=== PATIENT | female | born 1940 | race Caucasian/White ===

== ENCOUNTER 2017-08-04 13:10 | Day surgery (SDC) | payer MEDICARE, OTHER, SELFPAY ==
[2017-08-04 14:02] VITALS: BP 183/81; BP 193/91; PULSE 72; PULSE 75; RESP 20
[2017-08-04 14:10] VITALS: BP 154/75; PULSE 74; RESP 18; TEMP 36.4; O2SAT 98
--- NOTE | 2017-08-04 14:34 | HMH.PMPROC ---
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 She has increasing right side low back pain. She is tender over her right SI. She has a positive right Karen's test. Today she presents for right-sided sacroiliac joint injection Procedure Details:: Right SI joint injection under fluoroscopy Informed consent was obtained and the risks and benefits of the procedure was going to the patient. Patient was taken to the procedure room. Patient was placed prone on the procedure table. The right hip was prepped using ChloraPrep. The skin and subcutaneous tissues were anesthetized using lidocaine. I placed a 22-gauge spinal needle into the inferior aspect of the right SI joint. Needle placement was confirmed with dye. After this we injected 5 mL bupivacaine 0.25% and Depo-Medrol 40 mg into the right SI joint. The patient tolerated the procedure well with no complication. Plan and Disposition:: Patient tolerated the procedure well and we will follow-up with her in 2 weeks and reassess her symptoms at that time.
--- NOTE | 2017-08-04 14:39 | P.PCN_ITS ---
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 She has increasing right side low back pain. She is tender over her right SI. She has a positive right Karen's test. Today she presents for right-sided sacroiliac joint injection Procedure Details:: Right SI joint injection under fluoroscopy Informed consent was obtained and the risks and benefits of the procedure was going to the patient. Patient was taken to the procedure room. Patient was placed prone on the procedure table. The right hip was prepped using ChloraPrep. The skin and subcutaneous tissues were anesthetized using lidocaine. I placed a 22-gauge spinal needle into the inferior aspect of the right SI joint. Needle placement was confirmed with dye. After this we injected 5 mL bupivacaine 0.25% and Depo-Medrol 40 mg into the right SI joint. The patient tolerated the procedure well with no complication. Plan and Disposition:: Patient tolerated the procedure well and we will follow-up with her in 2 weeks and reassess her symptoms at that time.
[2017-08-04 14:45] VITALS: BP 152/79; PULSE 70; RESP 18; O2SAT 95
== END 2017-08-04 14:46 | disposition home or self-care (01) ==
LOC: SC.PAINP 13:13
PROVIDERS: Family Provider Internal Medicine Adolescent Medicine; PCP Internal Medicine Adolescent Medicine; Visit Provider Anesthesiology
DX: M46.1 Sacroiliitis, not elsewhere classified (principal)
CPT/HCPCS: 27096; G0260; J1040; Q9966

== ENCOUNTER → 2017-08-28 14:52 | Outpatient (POV) | payer MEDICARE, OTHER, SELFPAY ==
[2017-08-28 15:04] VITALS: BP 152/64; PULSE 77; RESP 20; O2SAT 100; BMI 28.6
--- NOTE | 2017-08-28 15:23 | P.CONS_ITS ---
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 She is status post right SI joint injection under fluoroscopy. She has gotten some relief of her pain symptoms however she still has some occasional pain radiating into her right hip and buttock area. This may be coming from her lumbar spine. Her MRI does show severe degenerative changes at L4-L5 and L5-S1 with facet hypertrophy at both levels. It is thought that she may benefit from a lumbar epidural steroid injection. We will seek approval for a lumbar epidural steroid injection to see if this will help with her residual pain. Objective:: Alert and oriented ?3 in no acute distress. Patient does have an antalgic gait. Increased pain with extension. Tenderness over lower lumbar spine. Motor strength of the lower extremities is 5/5. There is no gross sensory deficit. Assessment:: Sacroiliitis. 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 Plan:: We will seek approval and plan on lumbar epidural steroid injection at L4-L5 to see if this will help with her residual low back and right hip pain.
== END ==
PROVIDERS: PCP Internal Medicine Adolescent Medicine; Visit Provider Anesthesiology
DX: M51.16 Intervertebral disc disorders with radiculopathy, lumbar region (principal)
CPT/HCPCS: 99212

== ENCOUNTER → 2017-09-01 14:12 | Day surgery (SDC) | payer MEDICARE, OTHER, SELFPAY ==
[2017-09-01 14:27] VITALS: BP 142/76; PULSE 86; RESP 18; TEMP 36.4; O2SAT 96; BMI 29.5
--- NOTE | 2017-09-01 15:11 | P.PCN_ITS ---
- Procedure Date: 09/01/17 Time: 15:10 Anesthesiologist:: Flip Santillan MD Complications:: None Pre-procedure Diagnosis:: Degenerative disc disease of lumbar spine with lumbar radiculopathy symptoms and facet hypertrophy at L4-L5 and L5-S1 Post-procedure Diagnosis:: Same Indications for Procedure:: This patient is a pleasant 77-year-old white female who works here in the [email or web address]. She has had one right SI joint injection under fluoroscopy with some relief of her pain symptoms. She still has some occasional pain which radiates into her right hip and buttock area. She also has some low back pain. We will do a lumbar epidural steroid injection today to see if this helps with her residual pain. Procedure Details:: Lumbar epidural steroid injection under fluoroscopy. Informed consent was obtained and the risk and benefits of the procedure was explained to the patient. The patient was taken to the procedure room. The patient was placed prone on the procedure table. The patient was prepped and draped in sterile fashion. C-arm fluoroscopy was used to view the lumbar spine. Skin and subcutaneous tissues were anesthetized using lidocaine. I placed an 18-gauge epidural needle and advanced into the L4-L5 interspace using fluoroscopic guidance and [id number] to air. After confirmation of needle placement in the epidural space with dye I injected 2 mL of lidocaine 1.5 % with Depo-Medrol 80 mg. Patient tolerated the procedure well with no complications. Plan and Disposition:: We will follow-up with her in 2 weeks. We will reevaluate her symptoms at that time.
[2017-09-01 15:15] VITALS: BP 129/75; PULSE 88; RESP 20
[2017-09-01 15:16] VITALS: BP 145/88; PULSE 70; RESP 18
[2017-09-01 15:24] VITALS: BP 150/68; PULSE 73; RESP 16; O2SAT 96
--- NOTE | 2018-02-01 10:26 | PC.NURSE ---
DICLOFENAC 75MG BID WITH 2 REFILLS CALLED INTO [facility] [place]
== END ==
PROVIDERS: Family Provider Internal Medicine Adolescent Medicine; PCP Internal Medicine Adolescent Medicine; Visit Provider Anesthesiology
DX: M51.16 Intervertebral disc disorders with radiculopathy, lumbar region (principal); M53.82 Other specified dorsopathies, cervical region
CPT/HCPCS: 62323; J1040; Q9966

== ENCOUNTER → 2017-10-10 14:22 | Outpatient (POV) | payer MEDICARE, OTHER, SELFPAY ==
[2017-10-10 14:32] VITALS: BP 125/59; PULSE 89; RESP 20; O2SAT 95; BMI 27.7
--- NOTE | 2017-10-10 14:46 | HMH.PAINSOAP ---
[facility] Pain Management SOAP Note Subjective:: Patient is a pleasant 77-year-old white female who presents today as a follow-up after her lumbar epidural steroid injection. Patient is doing extremely well and reports almost 100% relief. Patient states that she is doing much better functionality dodge. Patient is interested in taking an anti-inflammatory to help prolong her significant results. Patient would like to hold off on continuing injections at this time. Patient reports no pain at this time. ROS General: no recent weight change, no fever, no sleep disturbances Respiratory: no cough, no shortness of air, no recurring pulmonary infections Cardiovascular/Peripheral Vascular: No chest pain, No palpitations, no edema, no shortness of breath. Gastrointestinal: no incontinence, normal bowel movements reported Genitourinary: no incontinence Musculoskeletal: Back pain Psychiatric: normal mood/ affect, Neurological: [denies weakness in extremities], [denies balance issues] Objective:: Physical Exam General: Alert and oriented x3, no acute distress, pleasant and cooperative, [on room air] Lungs: Resps E/U, Symmetrical chest expansion, Eyes: PERRL Musculoskeletal: Flexion and extension of lumbar spine somewhat guarded secondary to pain, deep tendon reflexes normal, strength in upper and lower extremities [5/5], normal gait noted Neurological: speech clear, neurology teacher equal, no gross sensory deficits Assessment:: Degenerative disc disease of the lumbar spine with lumbar radiculopathy and facet hypertrophy Plan:: We will call in diclofenac 75 mg 1 p.o. twice daily for this patient. I discussed her not taking other NSAIDs with this medication. We will hold off on an injection at this time. Patient can call us in the future if she needs further injections. This note was dictated using voice recognition software and may contain errors or omissions
--- NOTE | 2017-10-10 14:50 | P.CONS_ITS ---
[facility] Pain Management SOAP Note Subjective:: Patient is a pleasant 77-year-old white female who presents today as a follow- up after her lumbar epidural steroid injection. Patient is doing extremely well and reports almost 100% relief. Patient states that she is doing much better functionality dodge. Patient is interested in taking an anti- inflammatory to help prolong her significant results. Patient would like to hold off on continuing injections at this time. Patient reports no pain at this time. ROS General: no recent weight change, no fever, no sleep disturbances Respiratory: no cough, no shortness of air, no recurring pulmonary infections Cardiovascular/Peripheral Vascular: No chest pain, No palpitations, no edema, no shortness of breath. Gastrointestinal: no incontinence, normal bowel movements reported Genitourinary: no incontinence Musculoskeletal: Back pain Psychiatric: normal mood/ affect, Neurological: [denies weakness in extremities], [denies balance issues] Objective:: Physical Exam General: Alert and oriented x3, no acute distress, pleasant and cooperative, [ on room air] Lungs: Resps E/U, Symmetrical chest expansion, Eyes: PERRL Musculoskeletal: Flexion and extension of lumbar spine somewhat guarded secondary to pain, deep tendon reflexes normal, strength in upper and lower extremities [5/5], normal gait noted Neurological: speech clear, tax professional equal, no gross sensory deficits Assessment:: Degenerative disc disease of the lumbar spine with lumbar radiculopathy and facet hypertrophy Plan:: We will call in diclofenac 75 mg 1 p.o. twice daily for this patient. I discussed her not taking other NSAIDs with this medication. We will hold off on an injection at this time. Patient can call us in the future if she needs further injections. This note was dictated using voice recognition software and may contain errors or omissions
--- NOTE | 2017-10-12 14:06 | PC.PHONENOTE ---
called in Rx for Diclofenac 75mg BIC with 2 refills to [facility]
== END ==
PROVIDERS: Family Provider Internal Medicine Adolescent Medicine; PCP Internal Medicine Adolescent Medicine; Visit Provider Clinical Nurse Specialist Family Health
DX: M54.16 Radiculopathy, lumbar region (principal)
CPT/HCPCS: 99212

== ENCOUNTER → 2018-01-29 07:24 | Outpatient (CLI) | payer MEDICARE, OTHER, SELFPAY ==
[2018-01-29 07:36] LABS: Basophils % 0.5 % (0.1-2.0); Eosinophils # 0.1 K/mm3 (0.0-0.4); Eosinophils % 2.2 % (0.1-12.0); Hematocrit 43.2 % (37.0-47.0); Hemoglobin 13.6 g/dL (12.2-16.2); Lymphocytes # 1.9 K/mm3 (0.7-4.5); Lymphocytes % 29.8 K/mm3 (10-50); Mean Corpuscular HGB Conc 31.4 g/dL (31.8-35.4); Mean Corpuscular Hemoglobin 29.7 pg (27.0-31.2); Mean Corpuscular Volume 94.5 fl (81-99); Mean Platelet Volume 7.8 fl (7.4-10.4); Monocytes # 0.4 K/mm3 (0.1-1.0); Monocytes % 6.1 % (1.7-9.3); Neutrophils % 61.4 % (37.0-80.0); Platelet Count 302 K/mm3 (142-424); Red Blood Count 4.57 M/mm3 (4.20-5.40); Red Cell Distribution Width 12.4 % (11.5-17.5); White Blood Count 6.5 K/mm3 (4.8-10.8)
[2018-01-29 09:35] LABS: Alanine Aminotransferase 23 U/L (12-78); Albumin Level 3.5 gm/dL (3.4-5.0); Alkaline Phosphatase 83 U/L (46-116); Anion Gap 12.9 mEq/L (5-15); Aspartate Amino Transferase 18 U/L (15-37); Bilirubin,Total 0.3 mg/dL (0.2-1.0); Blood Urea Nitrogen 17 mg/dL (7-18); Calcium 8.7 mg/dL (8.5-10.1); Carbon Dioxide 27 mmol/L (21.0-32.0); Chloride 107 mmol/L (98-107); Creatinine,Serum 0.92 mg/dL (0.55-1.02); Estimated Glomerular Filt Rate 60 ml/min (>60); GFR (African American) 72 ML/MIN (>60); Globulin 3.6 gm/dl (1.3-3.2); Glucose 110 mg/dL (74-106); Potassium 4.9 mmoL/L (3.5-5.1); Sodium 142 mmol/L (136-145); Total Protein,Serum 7.1 gm/dL (6.4-8.2)
== END ==
PROVIDERS: Visit Provider Nurse Practitioner Family
DX: N39.0 Urinary tract infection, site not specified (principal)
CPT/HCPCS: 36415; 80053; 85025

== ENCOUNTER → 2018-05-01 12:29 | Outpatient (CLI) | payer MEDICARE, OTHER, SELFPAY ==
--- NOTE | 2018-05-01 12:35 | XR_ITS ---
XR shoulder RT min 2V HISTORY: ITS.REASON: RT SHOULDER PAIN ORDERING PHYSICIAN: Lizandro Sheldon MD PATIENT AGE: 78 years Comparison: None FINDINGS: No fracture or dislocation. No lytic or blastic change. There is normal mineralization. There are mild osteoarthritic changes of the glenohumeral joint. There is also some cortical irregularity involving the greater tuberosity of the humeral head which may be seen with rotator cuff disease. No subacromial stenosis. No other significant anomalies. IMPRESSION: Mild osteoarthritic change of the glenohumeral joint. Possible rotator cuff disease with irregularity of the greater tuberosity
--- NOTE | 2018-05-01 12:35 | XR_ITS ---
XR wrist RT min 3V HISTORY ITS.REASON: RT WRIST PAIN ORDERING PHYSICIAN: Lizandro Sheldon MD PATIENT AGE: 78 years Comparison: None FINDINGS: There are severe osteoarthritic changes of the first metacarpal carpal joint with mild osteoarthritis of the scaphotrapezium joint. No fracture or dislocation. No lytic or blastic change. IMPRESSION: Osteoarthritis otherwise negative
== END ==
PROVIDERS: PCP Internal Medicine Adolescent Medicine; Visit Provider Internal Medicine Adolescent Medicine
DX: M25.531 Pain in right wrist (principal)
CPT/HCPCS: 73030; 73110

== ENCOUNTER 2018-09-28 15:00 | Outpatient (RCR) | payer MEDICARE, OTHER, SELFPAY ==
--- NOTE | 2018-08-14 14:15 | HMH.PTOPEV ---
PT Outpatient Evaluation Rehab PT Outpatient Evaluation Start: 08/14/18 14:03 Freq: Status: Active Protocol: Document 08/14/18 14:03 ISABEL (Rec: 08/14/18 14:15 ISABEL [id number]) Electronically Signed By Nikos Kumar, PT 08/14/18 14:03 Outpatient Therapy Subjective History Subjective History Pt reports falling ~2 weeks ago, tripped B UE used to brace for fall, acute injury to R UE/bicep area. Pt reports mild to moderate R bicep mm area pain fall, localized, unchanged w/activity. Chief Complaint Pain Symptom Type Ache Dull Symptoms Relieved By OTC Meds Prior Functional Limitations None Current Functional Limitations Lifting Housework Symptom Description Intermittent Level of pain today (0-10) 3 Pain scale - at its best (0-10) 0 Pain scale - at its worst (0-10) 4 Shoulder/Elbow Eval Shoulder Objective Measurements Shoulder ROM Bilateral Shoulder Abduction Active Range of 0-160 Motion (degrees) Shoulder Flexion Active Range of Motion 0-160 (degrees) Query Text: Shoulder MMT Shoulder Abduction Strength Grade 4- Good- Shoulder Flexion Strength Grade 4 Good Shoulder External Rotation Strength 4 Good Grade Shoulder Internal Rotation Strength 4 Good Grade Elbow Objective Measurements Palpation Tenderness Elbow Palpation Overall Comment R LHB MM BELLY 2-3/4 Elbow Palpation Finding Tenderness Trigger Point Elbow ROM Bilateral full ROM elbow exam standard bilateral Elbow MMT Left Elbow Flexion Strength Grade 5 Normal Biceps Brachii Strength Grade 5 Normal Brachioradialis Strength Grade 5 Normal Brachialis Strength Grade 5 Normal Elbow Extension Strength Grade 4 Good Triceps Brachii Strength Grade 4 Good Right Elbow Flexion Strength Grade 5 Normal Biceps Brachii Strength Grade 4- Good- Brachioradialis Strength Grade 5 Normal Brachialis Strength Grade 5 Normal Elbow Extension Strength Grade 4 Good Triceps Brachii Strength Grade 4 Good Outpatient Therapy Assessment Impairments Problems/Impairmments Palpation Tenderness Impaired Strength Impaired Lifting Impaired Household Care Impaired Work Activities Subjective C/O Pain
== END 2018-09-28 15:05 | disposition home or self-care (01) ==
LOC: PT 15:00
PROVIDERS: Visit Provider Internal Medicine Adolescent Medicine
DX: M75.21 Bicipital tendinitis, right shoulder (principal)
CPT/HCPCS: 97010; 97014; 97033; 97035; 97110; 97140; 97163; G0283

== ENCOUNTER 2020-05-09 13:11 | Emergency (ER) | payer MEDICARE, OTHER, SELFPAY ==
[2020-05-09 13:40] VITALS: BP 160/76; PULSE 90; RESP 16; TEMP 36.8; O2SAT 98; BMI 27.6
--- NOTE | 2020-05-09 13:48 | HMH.EDUTC ---
[facility] [place] Impression: Sinusitis Qualifiers: Sinusitis location: maxillary Chronicity: acute Recurrence: non-recurrent Qualified Code(s): J01.00 - Acute maxillary sinusitis, unspecified Disposition: Home, Self-Care Condition on Discharge: Good Instructions: DI for Sinusitis Additional Instructions: start antibiotic patient to take as ordered for a full length of time even if you feel better. Sinus infections do not get better overnight. It may take 2-3 days to notice much improvement so be sure to use conservative measures as discussed for symptoms. Flonase 1 spray each nostril daily to help with nasal congestion, sinus and ear pressure/information Increase fluids Humidifier/vaporizer as needed Tylenol and ibuprofen as needed for fever or pain. If symptoms do not improve or get worse return or be seen in the ER Follow-up with primary care this week Prescriptions: Fluticasone Propionate [Flonase 50mcg nasal spray 16gm] 1 spr NS DAILY 14 Days #1 bottle Prescription Printed cephALEXin [Keflex 500mg Cap] 500 mg PO BID 10 Days #20 cap Prescription Printed Referrals: Adolfo Delong MD [Primary Care Provider] - Time of Disposition: 13:56 Medical Decision Making - Enrico Inquiry Pt receiving controlled substance: No Vital Signs: 05/09/20 13:40 Temperature 98.3 F Temperature Source Oral Pulse Rate [Right Brachial] 90 Respiratory Rate 16 Blood Pressure [Right Arm] 160/76 H Blood Pressure Mean [Right Arm] 104 Blood Pressure Source [Right Arm] Automatic Cuff Blood Pressure Position [Right Arm] Sitting 02 Sat by Pulse Oximetry 98 Oxygen Delivery Method Room Air Orders (Tests/Meds): ORDERS Category Date Time Status Covid-19 Nasal PCR ([facility]) Routine Lab 05/09/20 13:38 Ordered [facility] [place] - General Chief complaint: [facility] Stated complaint: sinus stuff up Time Seen by Provider: 05/09/20 13:49 Mode of Arrival: Ambulatory Source of Information: Patient Limitations: No Limitations Description of Symptoms (Recalled from Triage Doc. by RN): PATIENT C/O PRODUCTIVE COUGH AND HEAD CONGESTION SINCE MONDAY HEENT Symptoms (Recalled from RN notes): Yes Resp Symptoms (Recalled from RN notes): Yes Skin Symptoms (Recalled from RN notes): No MS Symptoms (Recalled from RN notes): No Functional Status (Recalled from RN notes): WNL - History of Present Illness Provider Complaint: 80 yr old female presents for nasal congestion, nonproductive cough and sinus pressure since . - Related Data Home Medications Medication Instructions Recorded Confirmed Citalopram Hydrobromide [Celexa] 20 mg PO DAILY 10/10/17 06/18/19 Levothyroxine Sodium 75 mg PO DAILY 10/10/17 06/18/19 [Levothyroxine 75mcg (0.075mg) Tab] Pravastatin Sodium [Pravachol] 40 mg PO DAILY 10/10/17 06/18/19 Omeprazole [Omeprazole 20mg 20 mg PO DAILY 05/09/20 05/09/20 Capsule] Previous Rx's Medication Instructions Recorded Fluticasone Propionate [Flonase 1 spr NS DAILY 14 Days #1 bottle 05/09/20 50mcg nasal spray 16gm] cephALEXin [Keflex 500mg Cap] 500 mg PO BID 10 Days #20 cap 05/09/20 Allergies Allergy/AdvReac Type Severity Reaction Status Date / Time No Known Allergies Allergy Verified 03/23/18 14:15 - Worker's Comp Is this a Worker's Comp case?: No [facility] History - Hepatitis A Screen Drug use history?: No High risk sexual behaviors?: No History of sexually transmitted infection?: No Currently employed?: No Childcare worker?: No Do you have indoor plumbing?: Yes Do you have electricity?: Yes Attestation statement:: This patient has been screened for Hepatitis A risk factors. I have reviewed the patient's past medical history: Yes Medical History: Reports:: Cancer, Gastroesophageal Reflux Disease(GERD), Hyperlipidemia Denies:: Diabetes Mellitus Type 1, Diabetes Mellitus Type 2, MRSA, Seizures Other Medical History: Reports: Chemotherapy, Hypothyroidism, Sinus Problems, T
[2020-05-09 14:12] VITALS: BP 160/76; PULSE 90; RESP 16; TEMP 36.8; O2SAT 98
== END 2020-05-09 14:19 | disposition home or self-care (01) ==
PROVIDERS: Emergency Provider Nurse Practitioner Family; PCP Internal Medicine Adolescent Medicine
DX: J01.00 Acute maxillary sinusitis, unspecified (principal); Z20.828 Contact with and (suspected) exposure to other viral communicable diseases; K21.9 Gastro-esophageal reflux disease without esophagitis; E78.5 Hyperlipidemia, unspecified; E03.9 Hypothyroidism, unspecified; Z79.899 Other long term (current) drug therapy
CPT/HCPCS: G0463; 99201; U0003

== ENCOUNTER → 2020-08-14 07:35 | Outpatient (CLI) | payer MEDICARE, SELFPAY ==
[2020-08-14 08:03] LABS: Basophils # 0.1 K/mm3 (0-0.2); Basophils % 0.7 % (0.1-2.0); Eosinophils # 0.1 K/mm3 (0.0-0.4); Eosinophils % 1.2 % (0.1-12.0); Hematocrit 44.8 % (37.0-47.0); Hemoglobin 14.4 g/dL (12.2-16.2); Mean Corpuscular Hemoglobin 30.9 pg (27.0-31.2); Mean Corpuscular Volume 96.3 fl (81-99); Mean Platelet Volume 7.6 fl (7.4-10.4); Monocytes # 0.3 K/mm3 (0.1-1.0); Monocytes % 4.6 % (1.7-9.3); Neutrophils # 4.6 K/mm3 (1.8-7.8); Neutrophils % 65.6 % (37.0-80.0); Platelet Count 290 K/mm3 (142-424); Red Blood Count 4.65 M/mm3 (4.20-5.40); Red Cell Distribution Width 13.6 % (11.5-17.5)
[2020-08-14 09:25] LABS: Alanine Aminotransferase 13 U/L (12-78); Albumin Level 4.4 g/dl (3.5-5.0); Albumin/Globulin Ratio 1.5 (1.1-1.8); Alkaline Phosphatase 90 U/L (38-126); Anion Gap 12.5 mEq/L (5-15); Aspartate Amino Transferase 24 U/L (14-36); Bilirubin,Total 0.6 mg/dl (0.2-1.3); Blood Urea Nitrogen 17 mg/dl (7-17); Calcium 9.6 mg/dl (8.4-10.2); Carbon Dioxide 27 mmol/L (22.0-30.0); Chloride 105 mmol/L (98-107); Chol/HDL Ratio 2.4 (1-3.5); Cholesterol 183 mg/dl (140-200); Estimated Glomerular Filt Rate 81 ml/min (>60); GFR (African American) 98 ML/MIN (>60); Glucose 102 mg/dl (74-100); HDL Cholesterol 75 mg/dl (40-60); Potassium 4.5 mmoL/L (3.5-5.1); Sodium 140 mmol/L (136-145); Total Protein,Serum 7.4 g/dl (6.3-8.2); Triglycerides 100 mg/dl (30-150); VLDL Cholesterol 20 mg/dL (0-40)
[2020-08-14 09:36] LABS: Direct LDL Cholesterol 67.31 mg/dL (100-129)
[2020-08-14 09:55] LABS: Thyroid Stimulating Hormone 3.55 uIU/mL (0.465-4.68)
== END ==
PROVIDERS: Visit Provider Nurse Practitioner Family
DX: E78.5 Hyperlipidemia, unspecified (principal); E03.9 Hypothyroidism, unspecified; K21.9 Gastro-esophageal reflux disease without esophagitis; Z85.038 Personal history of other malignant neoplasm of large intestine
CPT/HCPCS: 36415; 80053; 80061; 84443; 85025

== ENCOUNTER 2020-11-29 13:49 | Emergency (ER) | payer OTHER, SELFPAY ==
--- NOTE | 2020-11-29 13:58 | XR_ITS ---
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 Pain along right upper extremeties. TECHNIQUE: Imaging protocol: XR Right forearm. Views: 2 views. COMPARISON: CR XR ELBOW RT MIN 3V 11/29/2020 2:30 PM FINDINGS: Bones/joints: There is no evidence of acute fracture. There is no evidence of joint malalignment or dislocation. Soft tissues: There are no soft tissue masses or fluid collections. IMPRESSION: 1. No evidence of acute fracture. 2. No evidence of acute dislocation.
--- NOTE | 2020-11-29 13:58 | XR_ITS ---
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 TECHNIQUE: Imaging protocol: XR Right shoulder. Views: 2 or more views. COMPARISON: DX SHOULDCMRT XR shoulder RT min 2V 05/01/2018 12:37 PM FINDINGS: Bones/joints: There is no evidence of acute fracture. There is no evidence of joint malalignment or dislocation. Degenerative changes of the glenohumeral and acromioclavicular joints. Soft tissues: There are no soft tissue masses or fluid collections. IMPRESSION: 1. No evidence of acute fracture. 2. No evidence of acute dislocation. 3. Degenerative changes of the glenohumeral and acromioclavicular joints.
--- NOTE | 2020-11-29 13:58 | XR_ITS ---
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 TECHNIQUE: Imaging protocol: XR Right elbow. Views: 3 or more views. COMPARISON: CR XR SHOULDER RT MIN 2V 11/29/2020 2:26 PM FINDINGS: Bones/joints: There is no evidence of acute fracture. There is no evidence of joint malalignment or dislocation. Soft tissues: There are no soft tissue masses or fluid collections. IMPRESSION: 1. No evidence of acute fracture. 2. No evidence of acute dislocation.
--- NOTE | 2020-11-29 13:58 | XR_ITS ---
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 TECHNIQUE: Imaging protocol: XR Right humerus. Views: 2 or more views. COMPARISON: DX SHOULDCMRT XR shoulder RT min 2V 05/01/2018 12:37 PM FINDINGS: Bones/joints: There is no evidence of acute fracture. There is no evidence of joint malalignment or dislocation. Soft tissues: There are no soft tissue masses or fluid collections. IMPRESSION: 1. No evidence of acute fracture. 2. No evidence of acute dislocation.
--- NOTE | 2020-11-29 13:58 | XR_ITS ---
PROCEDURE INFORMATION: Exam: XR Right Wrist Exam date and time: 11/29/2020 1:58 PM Age: 80 years old Clinical indication: Injury or trauma; Fall; Work related; Blunt trauma (contusions or hematomas); Wrist; Right TECHNIQUE: Imaging protocol: XR Right wrist. Views: 3 or more views. COMPARISON: DX WRISTCMRT XR wrist RT min 3V 05/01/2018 12:37 PM FINDINGS: Bones/joints: Degenerative changes of the wrist. There is no evidence of acute fracture. There is no evidence of joint malalignment or dislocation. Soft tissues: Normal. IMPRESSION: 1. Degenerative changes of the wrist. 2. No evidence of acute fracture. 3. No evidence of acute dislocation.
[2020-11-29 14:00] VITALS: BP 117/76; PULSE 83; RESP 19; TEMP 36.6; O2SAT 100; BMI 27.6
--- NOTE | 2020-11-29 14:44 | HMH.EDUTC ---
[facility] [place] Disposition Clinical Impression: Fall Qualifiers: Encounter type: initial encounter Qualified Code(s): W19.XXXA - Unspecified fall, initial encounter Disposition: Home, Self-Care Condition on Discharge: Good Instructions: How To Perform RICE (Rest, Ice, Compress, Elevate), How to Prevent Falls, DI for Shoulder Pain, DI for Arm Pain Additional Instructions: *RICE, Rest the extremity, Ice 15-20 minutes 3-4 times daily, Compress- wear the taryn wrap as discussed as much as possible to help reduce swelling and pain, Elevate the extremity when at rest *Elevate when resting *Ibuprofen every 6-8 hours as needed for pain an inflammation. If need something more can take Tylenol in between doses of Ibuprofen to help Immediately follow up with your family doctor for new or worsening of symptoms, or no noticeable improvement over the next 3-5 days Return if needed Straight to ER if any life threatening symptoms Referrals: Adolfo Delong MD [Primary Care Provider] - As needed Time of Disposition: 15:19 Medical Decision Making - Enrico Inquiry Pt receiving controlled substance: No Enrico was queried for this patient: No Vital Signs: 11/29/20 14:00 11/29/20 15:25 Temperature 97.9 F 97.9 F Temperature Source Oral Pulse Rate 83 Pulse Rate [Right Brachial] 83 Respiratory Rate 19 19 Blood Pressure 117/76 Blood Pressure [Right Arm] 117/76 Blood Pressure Mean [Right Arm] 89 Blood Pressure Source [Right Arm] Automatic Cuff Blood Pressure Position [Right Arm] Sitting 02 Sat by Pulse Oximetry 100 Oxygen Delivery Method Room Air Orders (Tests/Meds): ORDERS Category Date Time Status Hand XR right minimum 3 views [XR hand RT min 3V] Stat Exams 11/29/20 13:58 Taken - Radiology Data #1 Image(s): Shoulder, Humerus Image Reviewed: Yes I have reviewed radiologist's interpretation shoulder IMPRESSION: 1. No evidence of acute fracture. 2. No evidence of acute dislocation. 3. Degenerative changes of the glenohumeral and acromioclavicular joints. Humerus IMPRESSION: 1. No evidence of acute fracture. 2. No evidence of acute dislocation. #2 Image(s): Forearm Image Reviewed: Yes I have reviewed radiologist's interpretation Preliminary Findings: No Fracture Seen IMPRESSION: 1. No evidence of acute fracture. 2. No evidence of acute dislocation. #3 Image(s): Wrist Image Reviewed: Yes I have reviewed radiologist's interpretation IMPRESSION: 1. Degenerative changes of the wrist. 2. No evidence of acute fracture. 3. No evidence of acute dislocation [facility] [place] HPI - General Stated complaint: [id number] fell and right side pain Time Seen by Provider: 11/29/20 14:44 Mode of Arrival: Ambulatory Source of Information: Patient Limitations: No Limitations Description of Symptoms (Recalled from Triage Doc. by RN): PATIENT FELL WHILE AT WORK YESTERDAY AFTERNOON; C/O RIGHT SHOULDER AND RIGHT ARM PAIN HEENT Symptoms (Recalled from RN notes): No Resp Symptoms (Recalled from RN notes): No Skin Symptoms (Recalled from RN notes): No MS Symptoms (Recalled from RN notes): Yes Functional Status (Recalled from RN notes): WNL - History of Present Illness Provider Complaint: Patient states that she fell at work yesterday when tripped over a trash can and slipped on floor in dishroom and landed on her right arm/shoulder area State that she thought she was ok and just sore but today she was still feeling sore States that she has been able to move her arms just feels like her arm from her shoulder to her wrist is sore Denies swelling no bruising and able to raise arm - Related Data Home Medications Medication Instructions Recorded Confirmed Citalopram Hydrobromide [Celexa] 20 mg PO DAILY 10/10/17 11/29/20 Levothyroxine Sodium 75 mg PO DAILY 10/10/17 11/29/20 [Levothyroxine 75mcg (0.075mg) Tab] Pravastatin Sodium [Pravachol] 40 mg PO DAILY 10/10/17 11/29/20 Omeprazole [Omeprazole 20mg 20 mg
[2020-11-29 15:25] VITALS: BP 117/76; PULSE 83; RESP 19; TEMP 36.6; O2SAT 100
== END 2020-11-29 15:30 | disposition home or self-care (01) ==
PROVIDERS: Emergency Provider Nurse Practitioner; PCP Internal Medicine Adolescent Medicine
DX: S50.11XA Contusion of right forearm, initial encounter (principal); S40.011A Contusion of right shoulder, initial encounter; S40.021A Contusion of right upper arm, initial encounter; W01.0XXA Fall on same level from slipping, tripping and stumbling without subsequent striking against object, initial encounter; Y92.69 Other specified industrial and construction area as the place of occurrence of the external cause; Y99.0 Civilian activity done for income or pay
CPT/HCPCS: 73030; 73060; 73080; 73090; 73110; 73130; 99202; G0463

== ENCOUNTER 2021-01-09 21:55 | Emergency (ER) | payer MEDICARE, SELFPAY ==
[2021-01-09 22:08] VITALS: BP 169/71; PULSE 80; RESP 16; TEMP 36.6; O2SAT 99
== END 2021-01-09 22:09 | disposition home or self-care (01) ==
LOC: ER 22:01
PROVIDERS: Emergency Provider Emergency Medicine; PCP Internal Medicine Adolescent Medicine
DX: Z53.21 Procedure and treatment not carried out due to patient leaving prior to being seen by health care provider (principal)
CPT/HCPCS: 99211

== ENCOUNTER → 2021-03-31 06:17 | Outpatient (CLI) | payer MEDICARE, SELFPAY ==
[2021-03-31 06:51] LABS: Coronavirus 19, PCR Not Detected (NotDetected); Influenza A, PCR Not Detected (NotDetected); Influenza B, PCR Not Detected (NotDetected)
== END ==
PROVIDERS: PCP Internal Medicine Adolescent Medicine; Visit Provider Emergency Medicine
DX: Z20.822 Contact with and (suspected) exposure to COVID-19 (principal)
CPT/HCPCS: U0003

== ENCOUNTER 2021-06-28 14:17 | Emergency (ER) | payer MEDICARE, SELFPAY ==
[2021-06-28 14:51] VITALS: BP 144/65; PULSE 70; RESP 18; TEMP 36.8; O2SAT 97; BMI 28.7
--- NOTE | 2021-06-28 15:07 | HMH.EDUTC ---
[facility] [place] Clinical Impression: Right hip pain, Right thigh pain, Piriformis syndrome of right side Disposition: Home, Self-Care Condition on Discharge: Good Instructions: Osteoarthritis, DI for Hip Pain Additional Instructions: Rest the extremity, Go home and lie down and rest. Take the medications as directed that we sent to the pharmacy. Follow up with Dr. Logan (orthopedics) if you don't already have an orthopedic doctor. I put in a referral but you need to call his office and schedule an appointment. Follow up with your regular doctor. GO TO THE ER FOR ANY WORSENING SYMPTOMS Prescriptions: methylPREDNISolone [Medrol] 4 mg PO DIRECTED 6 Days #21 packet Transmission Status: Received by [facility] Referrals: Adolfo Delong MD [Primary Care Provider] - Forms: Work/School Release Time of Disposition: 15:50 Medical Decision Making - Medical Records Medical records reviewed: No: I reviewed the patient's medical records. - Enrico Inquiry Pt receiving controlled substance: No Vital Signs: 06/28/21 14:51 06/28/21 15:51 Temperature 98.2 F 98.2 F Temperature Source Oral Pulse Rate 70 Pulse Rate [Left] 70 Respiratory Rate 18 18 Blood Pressure 144/65 H Blood Pressure [Right Arm] 144/65 H Blood Pressure Mean [Right Arm] 91 02 Sat by Pulse Oximetry 97 - Lab Data Lab results reviewed: Yes: I reviewed the patient's lab results. Orders (Tests/Meds): ED MEDICATIONS Discontinued Medications Generic Name Dose Route Start Last Admin Trade Name Freq PRN Reason Stop Dose Admin Methylprednisolone Sodium Succinate 125 mg 06/28/21 15:15 06/28/21 15:24 Methylprednisolone Sod Succ 125mg Vial IM 06/28/21 15:16 125 mg ONCE ONE Administration [facility] [place]PI - General Stated complaint: right hip and knee pain Time Seen by Provider: 06/28/21 15:07 - History of Present Illness Provider Complaint: She states that for the past 2 days she has had right hip pain and pain that radiates down the lateral aspect of the right thigh. She denies any injury or fall. She thinks this is her osteoarthritis in her right hip that flares up at times. - Related Data Home Medications Medication Instructions Recorded Confirmed Citalopram Hydrobromide [Celexa] 20 mg PO DAILY 10/10/17 11/29/20 Levothyroxine Sodium 75 mg PO DAILY 10/10/17 11/29/20 [Levothyroxine 75mcg (0.075mg) Tab] Pravastatin Sodium [Pravachol] 40 mg PO DAILY 10/10/17 11/29/20 Omeprazole [Omeprazole 20mg 20 mg PO DAILY 05/09/20 11/29/20 Capsule] Previous Rx's Medication Instructions Recorded methylPREDNISolone [Medrol] 4 mg PO DIRECTED 6 Days #21 06/28/21 packet Allergies Allergy/AdvReac Type Severity Reaction Status Date / Time No Known Allergies Allergy Verified 03/23/18 14:15 [facility] History - Hepatitis A Screen Attestation statement:: This patient has been screened for Hepatitis A risk factors. I have reviewed the patient's past medical history: Yes Medical History: Reports:: Cancer, Gastroesophageal Reflux Disease(GERD), Hyperlipidemia Denies:: Diabetes Mellitus Type 1, Diabetes Mellitus Type 2, MRSA, Seizures Other Medical History: Reports: Chemotherapy, Hypothyroidism, Sinus Problems, Thyroid Disease. Denies: Blood Transfusion Reaction Other Surgeries: Yes: Colon Resection, Thyroidectomy Amputation: No Fractures: No - Social History Smoking Status: Never smoker Alcohol Intake: never Occupational Status: other Housing: house Household Members: family Family Hx:: No significant family history ROS Obtained: Yes All systems reviewed & no additional complaints - Constitutional Constitutional: Denies chills, Denies fever(s) - Eyes Eyes: Denies eye discharge - ENT Ears, Nose, Mouth, and Throat: Denies sore throat - Cardiovascular Cardiovascular: Denies chest pain - Respiratory Respiratory: Denies chest congestion, Denies cough - Gastrointestin
[2021-06-28 15:51] VITALS: BP 144/65; PULSE 70; RESP 18; TEMP 36.8
== END 2021-06-28 15:52 | disposition home or self-care (01) ==
PROVIDERS: Emergency Provider Nurse Practitioner Family; PCP Internal Medicine Adolescent Medicine
DX: M25.551 Pain in right hip (principal); M79.651 Pain in right thigh; G57.01 Lesion of sciatic nerve, right lower limb; E78.5 Hyperlipidemia, unspecified; K21.9 Gastro-esophageal reflux disease without esophagitis; E03.9 Hypothyroidism, unspecified
CPT/HCPCS: G0463; 99202

== ENCOUNTER 2021-07-07 11:32 | Emergency (ER) | payer OTHER, SELFPAY ==
[2021-07-07 11:37] VITALS: BP 175/83; PULSE 66; RESP 18; TEMP 36.8; O2SAT 100; BMI 27.4
--- NOTE | 2021-07-07 11:41 | XR_ITS ---
PROCEDURE: XR WRIST LT MIN 3V CLINICAL INDICATION: Fall COMPARISON: CR WRL3 WRIST-3 VIEWS-LT from 01/17/2014 CR WRL3 WRIST-3 VIEWS-LT from 03/05/2014 DX WRISTCMRT XR wrist RT min 3V from 05/01/2018 CR XR WRIST RT MIN 3V from 11/29/2020 FINDINGS: There is an old distal radial fracture with mild osteoarthritic changes at the radiocarpal joint. No acute fracture or dislocation apparent. Other findings:None. IMPRESSION: Old distal radial fracture, no acute finding Dictated by: Donavan Cloud MD 07/07/2021 12:18 Donavan Cloud MD in [place] 07/07/2021 12:18
--- NOTE | 2021-07-07 11:41 | XR_ITS ---
PROCEDURE: XR KNEE LT 3V CLINICAL INDICATION: Fall COMPARISON: No exams were available for comparison FINDINGS: No fracture or dislocation. No lytic or blastic change. There is normal mineralization. There are minimal osteoarthritic changes of the medial compartment. Small enthesophyte noted along the superior aspect of the patella Other findings:None. IMPRESSION: No acute findings. Dictated by: Donavan Cloud MD 07/07/2021 12:16 Donavan Cloud MD in [place] 07/07/2021 12:16
--- NOTE | 2021-07-07 11:45 | PC.NURSE ---
Called RAD to request xray
[2021-07-07 12:00] VITALS: BP 132/74; PULSE 67; O2SAT 97
--- NOTE | 2021-07-07 12:02 | PC.NURSE ---
pt to rad.
--- NOTE | 2021-07-07 12:08 | HMH.EDFALL ---
ED Disposition Clinical Impression: Fall Disposition: Home, Self-Care Condition on Discharge: Fair Instructions: How to Prevent Falls Referrals: Adolfo Delong MD [Primary Care Provider] - - Critical Care Critical Care Time: No Attestation: On 07/07/21, the high probability of a clinically significant, sudden or life threatening deterioration of the following system(s) required my full and direct attention, intervention and personal management. The time I documented below is in addition to time spent performing reported procedures but includes the following listed in this critical care notation. Medical Decision Making - Medical Records Medical records reviewed: Yes: I reviewed the patient's medical records. - Enrico Inquiry Pt receiving controlled substance: No Enrico was queried for this patient: No Vital Signs: 07/07/21 11:37 07/07/21 12:00 07/07/21 12:31 Temperature 98.3 F Temperature Source Oral Pulse Rate 67 64 Pulse Rate [Right Radial] 66 Respiratory Rate 18 Blood Pressure 132/74 166/86 H Blood Pressure [Right Arm] 175/83 H Blood Pressure Mean 93 109 Blood Pressure Mean [Right Arm] 113 Blood Pressure Source [Right Arm] Automatic Cuff Blood Pressure Position [Right Arm] Supine 02 Sat by Pulse Oximetry 100 97 97 Oxygen Delivery Method Room Air Nasal Cannula 07/07/21 13:06 Temperature Temperature Source Pulse Rate 63 Pulse Rate [Right Radial] Respiratory Rate Blood Pressure Blood Pressure [Right Arm] Blood Pressure Mean Blood Pressure Mean [Right Arm] Blood Pressure Source [Right Arm] Blood Pressure Position [Right Arm] 02 Sat by Pulse Oximetry 99 Oxygen Delivery Method - Lab Data Lab Results 07/07/21 12:51: WBC 9.0, RBC 4.21, Hgb 13.3, Hct 40.0, MCV 95.0, MCH 31.7 H, MCHC 33.4, RDW 13.1, Plt Count 321, MPV 8.1, Neut % (Auto) 61.5, Lymph % (Auto) 26.4, [place] % (Auto) 5.3, Eos % (Auto) 5.9, Baso % (Auto) 0.9, Neut # (Auto) 5.5, Lymph # (Auto) 2.4, [place] # (Auto) 0.5, Eos # (Auto) 0.5 H, Baso # (Auto) 0.1 07/07/21 12:51: PT 10.3, INR 0.90, APTT 24.7 07/07/21 12:51: Sodium 135 L, Potassium 4.2, Chloride 101, Carbon Dioxide 33 H, Anion Gap 5.2, BUN 14, Creatinine 0.70, Estimated Creat Clear 56, Estimated GFR 81, Est GFR ( Amer) 98, Glucose 91, Calcium 8.9, Total Bilirubin 0.3, AST 26, ALT 17, Alkaline Phosphatase 89, Total Protein 6.6, Albumin 3.8, Globulin 2.8, Albumin/Globulin Ratio 1.4 Result diagrams: 07/07/21 12:51 07/07/21 12:51 Orders (Tests/Meds): ED MEDICATIONS Discontinued Medications Generic Name Dose Route Start Last Admin Trade Name Ritchieq PRN Reason Stop Dose Admin Acetaminophen 1,000 mg 07/07/21 11:42 07/07/21 11:47 Acetaminophen 500mg Tab PO 07/07/21 11:43 1,000 mg ONCE ONE Administration Medical Decision Narrative: Patient is 81-year-old female with past medical history of hypertension, hypothyroidism presenting to the ED after a fall. Patient is awake, alert, not in acute distress. Patient is medically stable, afebrile. Patient's physical exam is remarkable for mild ecchymosis at her right forehead, druze with no tenderness to palpation patient has mild tenderness to palpation of her left wrist with overlying ecchymosis. Patient has tenderness to palpation of her left knee with overlying abrasions. X-rays of her left upper and lower extremity are performed. At this point I do not believe the patient needs a head CT she is not on anticoagulation she is a GCS of 15 has no focal neurological symptoms. Additional information was obtained by bystanders who stated that patient have been ataxic, stumbling which led to her fall. At this point lab work was performed and a CT head was performed also which was negative. At this point patient is stable for discharge. Patient is given strict return precautions and follow-up instructions. Fall HPI - General Chief Complaint: Fall Stated Complaint: fall Time See
--- NOTE | 2021-07-07 12:16 | PC.NURSE ---
pt returned from rad
[2021-07-07 12:31] VITALS: BP 166/86; PULSE 64; O2SAT 97
--- NOTE | 2021-07-07 12:40 | CT_ITS ---
PROCEDURE: CT HEAD/BRAIN WO CON CLINICAL INDICATION: Fall, ataxia COMPARISON: No exams were available for comparison TECHNIQUE: Axial images obtained. All CT scans at the facility use one or more dose reduction, viz: automated exposure control, ma/kV adjustment per patient size (including targeted exams where dose is matched to indication, i.e. head), or iterative reconstruction technique. FINDINGS: No midline shift, mass effect, intracranial hemorrhage, hydrocephalus, or extra-axial fluid collection is evident. There is generalized atrophy with scattered periventricular and subcortical areas decreased attenuation consistent with ischemic gliotic change from microvascular disease. Skin arlen gliotic changes also suspected in the elin. Encephalomalacia changes are present in the left frontal parietal junction. There is a small area of decreased attenuation in the left subinsular region. This could be related to also to an area of ischemic gliotic change versus an lacunar infarction. The calvarium has an unremarkable appearance. No mastoid effusion. Partial opacification of the posterior left ethmoid air cell. Bilateral maxillary sinus retention cyst.. IMPRESSION: No acute intracranial finding Dictated by: Donavan Cloud MD 07/07/2021 13:26 Donavan Cloud MD in [place] 07/07/2021 13:26
[2021-07-07 13:00] LABS: Basophils # 0.1 K/mm3 (0-0.2); Basophils % 0.9 % (0.1-2.0); Eosinophils # 0.5 K/mm3 (0.0-0.4); Eosinophils % 5.9 % (0.1-12.0); Hemoglobin 13.3 g/dL (12.2-16.2); Lymphocytes # 2.4 K/mm3 (0.7-4.5); Lymphocytes % 26.4 % (10-50); Mean Corpuscular HGB Conc 33.4 g/dL (31.8-35.4); Mean Corpuscular Hemoglobin 31.7 pg (27.0-31.2); Mean Platelet Volume 8.1 fl (7.4-10.4); Monocytes # 0.5 K/mm3 (0.1-1.0); Monocytes % 5.3 % (1.7-9.3); Neutrophils # 5.5 K/mm3 (1.8-7.8); Neutrophils % 61.5 % (37.0-80.0); Platelet Count 321 K/mm3 (142-424); Red Blood Count 4.21 M/mm3 (4.20-5.40); Red Cell Distribution Width 13.1 % (11.5-17.5)
--- NOTE | 2021-07-07 13:03 | PC.NURSE ---
pt returned from rad
[2021-07-07 13:06] VITALS: PULSE 63; O2SAT 99
[2021-07-07 13:07] LABS: Alanine Aminotransferase 17 U/L (12-78); Albumin Level 3.8 g/dl (3.5-5.0); Albumin/Globulin Ratio 1.4 (1.1-1.8); Alkaline Phosphatase 89 U/L (38-126); Anion Gap 5.2 mEq/L (5-15); Aspartate Amino Transferase 26 U/L (14-36); Bilirubin,Total 0.3 mg/dl (0.2-1.3); Blood Urea Nitrogen 14 mg/dl (7-17); Calcium 8.9 mg/dl (8.4-10.2); Carbon Dioxide 33 mmol/L (22.0-30.0); Chloride 101 mmol/L (98-107); Creatinine Clearance Estimated 56 mL/min (50-200); Estimated Glomerular Filt Rate 81 ml/min (>60); GFR (African American) 98 ML/MIN (>60); Globulin 2.8 g/dL (1.3-3.2); Glucose 91 mg/dl (74-100); Potassium 4.2 mmoL/L (3.5-5.1); Sodium 135 mmol/L (136-145); Total Protein,Serum 6.6 g/dl (6.3-8.2)
[2021-07-07 13:09] LABS: Activated Partial Thrombo Time 24.7 seconds (22.8-30.6); Prothrombin Time 10.3 seconds (10.1-12.5)
[2021-07-07 14:07] VITALS: BP 160/89; PULSE 65; RESP 18; TEMP 36.8; O2SAT 97
== END 2021-07-07 14:07 | disposition home or self-care (01) ==
PROVIDERS: Emergency Provider Emergency Medicine; PCP Internal Medicine Adolescent Medicine
DX: S60.212A Contusion of left wrist, initial encounter (principal); S80.02XA Contusion of left knee, initial encounter; S00.03XA Contusion of scalp, initial encounter; W01.0XXA Fall on same level from slipping, tripping and stumbling without subsequent striking against object, initial encounter; Y92.69 Other specified industrial and construction area as the place of occurrence of the external cause; Y99.0 Civilian activity done for income or pay
CPT/HCPCS: 70450; 73110; 73562; 80053; 85025; 85610; 85730; 99282

== ENCOUNTER → 2022-02-07 06:18 | Outpatient (CLI) | payer MEDICARE, OTHER, SELFPAY ==
[2022-02-07 07:14] LABS: Influenza A, PCR Not Detected (NotDetected); Influenza B, PCR Not Detected (NotDetected)
[2022-02-07 07:35] LABS: Coronavirus 19, PCR Detected (NotDetected)
== END ==
PROVIDERS: PCP Internal Medicine Adolescent Medicine; Visit Provider Emergency Medicine
DX: U07.1 COVID-19 (principal)
CPT/HCPCS: C9803; U0003; U0005

== ENCOUNTER 2022-06-24 08:29 | Emergency (ER) | payer MEDICARE, OTHER, SELFPAY ==
[2022-06-24 09:10] VITALS: BP 151/81; PULSE 83; RESP 20; TEMP 36.8; O2SAT 97; BMI 31.2
--- NOTE | 2022-06-24 09:16 | EXP.UTC ---
Discharge Plan Disposition Patient Disposition: Home, Self-Care Condition: Good Prescriptions Prescriptions: New azithromycin [Zithromax] 250 mg tablet 250 mg PO UD DOSE PK Qty: 6 0RF Rx Instructions: Take two (2) tablets today, then one (1) tablet days #2 thru #5 guaifenesin [Mucinex] 600 mg tablet extended release 12hr 600 - 1,200 mg PO BIDP PRN (Reason: Congestion) Qty: 30 0RF methylprednisolone 4 mg Tablets,Dose Pack 4 mg PO DIRECTED Qty: 21 0RF No Action pravastatin [Pravachol] 40 MG tablet 40 mg PO DAILY levothyroxine 75 tablet 75 mg PO DAILY Label Comments: citalopram [Celexa] 20 MG tablet 20 mg PO DAILY omeprazole 20 MG capsule,delayed release(DR/EC) 20 mg PO DAILY Referrals Follow up/Referrals: Adolfo Delong MD [Primary Care Provider] - See instructions Activity Restrictions/Add. Instructions Additional Instructions/Restrictions: Drink plenty of fluids. Take tylenol or ibuprofen for pain or fever. Take the medications as directed. Follow up with your regular doctor. GO TO THE ER FOR ANY WORSENING SYMPTOMS Clinical Impressions Clinical Impression: Sinusitis, Bronchitis Stand Alone Forms Stand Alone Forms: Work/School Release Instructions Patient Instructions: DI for Sinusitis, DI for Acute Bronchitis Discharge ED Provider: Lizandro Billings [facility] [place] HPI General Stated complaint: cough Time Seen by Provider: 06/24/22 09:15 History of Present Illness Provider Complaint: She states that for the past 3 days she has had sinus congestion, sore throat, chills, fever and a nonproductive cough. Related Data Home Medications Medication Instructions Recorded Confirmed citalopram 20 mg tablet (Celexa) 20 mg PO DAILY Depression 10/10/17 06/24/22 levothyroxine 75 mcg tablet 75 mg PO DAILY THYROID 10/10/17 06/24/22 pravastatin 40 mg tablet 40 mg PO DAILY Cholesterol 10/10/17 06/24/22 (Pravachol) omeprazole 20 mg capsule,delayed 20 mg PO DAILY GERD 05/09/20 06/24/22 release Previous Rx's Medication Instructions Recorded azithromycin 250 mg tablet 250 mg PO UD DOSE PK #6 tabs 06/24/22 (Zithromax) guaifenesin 600 mg tablet, 600 - 1,200 mg PO BIDP PRN 06/24/22 extended release 12 hr (Mucinex) Congestion #30 tabs methylprednisolone 4 mg tablets in 4 mg PO DIRECTED #21 tabs 06/24/22 a dose pack Allergies Allergy/AdvReac Type Severity Reaction Status Date / Time No Known Allergies Allergy Verified 03/23/18 14:15 PFSH PFS Medical History Cancer Diabetes mellitus, type 2 History of stroke Social History Smoking Status: Never smoker second hand exposure: No alcohol intake: never current occupational status: other Travel in the last 8 weeks: None household members: family housing: house current occupational exposures/hazards: No caffeine: Yes ROS Obtained: Yes All systems reviewed & no additional complaints except as documented Constitutional Constitutional: Reports chills and Reports fever(s) Eyes Eyes: Denies eye discharge ENT Ears, Nose, Mouth, and Throat: Reports as per HPI Cardiovascular Cardiovascular: Denies chest pain Respiratory Respiratory: Denies chest congestion and Reports cough Gastrointestinal Gastrointestingal: Reports nausea; Denies abdominal pain, constipation, cramping, diarrhea or vomiting Musculoskeletal Musculoskeletal: Denies arthralgias Integumentary/Breasts Skin/Breast: Denies rash Neurologic Neurologic: Denies paresthesias Physical Exam General General appearance: alert and in no apparent distress Head Head exam: atraumatic, normocephalic and normal inspection Eye Eye exam: Present normal appearance, PERRL and EOMI ENT ENT exam: Present normal exam, normal oropharynx, mucous membranes moist, TM's normal bilaterally and normal external ear exa
[2022-06-24 09:42] LABS: UTC Influenza A Antigen Positive (Negative); UTC Influenza B Antigen Negative (Negative)
[2022-06-24 09:45] VITALS: BP 151/81; PULSE 83; RESP 20; TEMP 36.8; O2SAT 97
== END 2022-06-24 09:52 | disposition home or self-care (01) ==
PROVIDERS: Emergency Provider Nurse Practitioner Family; PCP Internal Medicine Adolescent Medicine
DX: J40 Bronchitis, not specified as acute or chronic (principal); J32.9 Chronic sinusitis, unspecified
CPT/HCPCS: 87804; 99212; G0463

== ENCOUNTER 2022-07-03 08:00 | Emergency (ER) | payer MEDICARE, OTHER, SELFPAY ==
--- NOTE | 2022-07-03 08:12 | XR_ITS ---
PROCEDURE INFORMATION: Exam: XR Chest Exam date and time: 07/03/2022 8:13 AM Age: 82 years old Clinical indication: Cough TECHNIQUE: Imaging protocol: Radiologic exam of the chest. Views: 2 views. COMPARISON: CR XR HUMERUS RT 11/29/2020 2:29 PM FINDINGS: Lungs: Unremarkable. No consolidation. Pleural spaces: Unremarkable. No pleural effusion. No pneumothorax. Heart/Mediastinum: Prior valve replacement. Bones/joints: Unremarkable. IMPRESSION: 1. No acute cardiopulmonary pathology. 2. Prior valve replacement.
[2022-07-03 08:27] VITALS: BP 141/69; PULSE 76; RESP 16; TEMP 36.4; O2SAT 99; BMI 30.8
--- NOTE | 2022-07-03 08:34 | EXP.UTC ---
Discharge Plan Disposition Patient Disposition: Home, Self-Care Condition: Good Prescriptions Prescriptions: New azithromycin [Zithromax] 250 mg tablet 250 mg PO UD DOSE PK Qty: 6 0RF Rx Instructions: Take two (2) tablets today, then one (1) tablet days #2 thru #5 benzonatate [benzonatate] 100 mg capsule 100 mg PO TIDP PRN (Reason: Cough) Qty: 30 0RF methylprednisolone 4 mg Tablets,Dose Pack 4 mg PO DIRECTED Qty: 21 0RF No Action pravastatin [Pravachol] 40 MG tablet 40 mg PO DAILY levothyroxine 75 tablet 75 mg PO DAILY Label Comments: citalopram [Celexa] 20 MG tablet 20 mg PO DAILY omeprazole 20 MG capsule,delayed release(DR/EC) 20 mg PO DAILY azithromycin [Zithromax] 250 mg tablet 250 mg PO UD DOSE PK Qty: 6 0RF Rx Instructions: Take two (2) tablets today, then one (1) tablet days #2 thru #5 guaifenesin [Mucinex] 600 mg tablet extended release 12hr 600 - 1,200 mg PO BIDP PRN (Reason: Congestion) Qty: 30 0RF methylprednisolone 4 mg Tablets,Dose Pack 4 mg PO DIRECTED Qty: 21 0RF Referrals Follow up/Referrals: Adolfo Delong MD [Primary Care Provider] - See instructions Activity Restrictions/Add. Instructions Additional Instructions/Restrictions: Drink plenty of fluids. Take tylenol or ibuprofen for pain or fever. Take the medications as directed. Follow up with your regular doctor. GO TO THE ER FOR ANY WORSENING SYMPTOMS Don't start the oral steroids until tomorrow, since you had the shot here today. Clinical Impressions Clinical Impression: Acute bronchitis Instructions Patient Instructions: Acute Bronchitis, DI for Acute Bronchitis Discharge ED Provider: Lizandro Billings [facility] General Stated complaint: cough Mode of Arrival: Ambulatory Source of Information: Patient Limitations: No Limitations Time Seen by Provider: 07/03/22 08:34 Description of Symptoms (Recalled from Triage Doc. by RN): pt comes in with c/o continuing cough. ongoing for 1 week. pt seen here recently, prescribed medication, pt finished those. HEENT Symptoms (Recalled from RN notes): No Resp Symptoms (Recalled from RN notes): Yes Skin Symptoms (Recalled from RN notes): No MS Symptoms (Recalled from RN notes): No Functional Status (Recalled from RN notes): n/a History of Present Illness Provider Complaint: She states that she has been having a cough for the past 2 weeks. She originally ran a fever and had body aches when it first started. The fever and other symptoms got better, but her coughing has continued. Related Data Home Medications Medication Instructions Recorded Confirmed citalopram 20 mg tablet (Celexa) 20 mg PO DAILY Depression 10/10/17 06/24/22 levothyroxine 75 mcg tablet 75 mg PO DAILY THYROID 10/10/17 06/24/22 pravastatin 40 mg tablet 40 mg PO DAILY Cholesterol 10/10/17 06/24/22 (Pravachol) omeprazole 20 mg capsule,delayed 20 mg PO DAILY GERD 05/09/20 06/24/22 release Previous Rx's Medication Instructions Recorded azithromycin 250 mg tablet 250 mg PO UD DOSE PK #6 tabs 06/24/22 (Zithromax) guaifenesin 600 mg tablet, 600 - 1,200 mg PO BIDP PRN 06/24/22 extended release 12 hr (Mucinex) Congestion #30 tabs methylprednisolone 4 mg tablets in 4 mg PO DIRECTED #21 tabs 06/24/22 a dose pack azithromycin 250 mg tablet 250 mg PO UD DOSE PK #6 tabs 07/03/22 (Zithromax) benzonatate 100 mg capsule 100 mg PO TIDP PRN Cough #30 caps 07/03/22 methylprednisolone 4 mg tablets in 4 mg PO DIRECTED #21 tabs 07/03/22 a dose pack Allergies Allergy/AdvReac Type Severity Reaction Status Date / Time No Known Allergies Allergy Verified 07/03/22 08:33 Worker's Comp Is this a Worker's Comp case?: No [facility] Disclaimer: The information contained in this section may have been updated after the patient was seen, as this information can be updated by other users. Medical History (Reviewed 07/03
[2022-07-03 08:36] LABS: UTC Influenza A Antigen Negative (Negative); UTC Influenza B Antigen Negative (Negative)
[2022-07-03 09:01] VITALS: BP 141/69; PULSE 76; RESP 16; TEMP 36.4
== END 2022-07-03 09:02 | disposition home or self-care (01) ==
PROVIDERS: Emergency Provider Nurse Practitioner Family; PCP Internal Medicine Adolescent Medicine
DX: J20.9 Acute bronchitis, unspecified (principal)
CPT/HCPCS: 71046; 87804; 96372; 99212; G0463

== ENCOUNTER → 2023-01-04 07:01 | Outpatient (CLI) | payer MEDICARE, OTHER, SELFPAY ==
[2023-01-04 07:36] LABS: Basophils % 0.7 % (0.1-2.0); Eosinophils # 0.1 K/mm3 (0.0-0.4); Eosinophils % 2.3 % (0.1-12.0); Hematocrit 44.7 % (37.0-47.0); Hemoglobin 14.1 g/dL (12.2-16.2); Lymphocytes # 1.8 K/mm3 (0.7-4.5); Lymphocytes % 34.8 % (10-50); Mean Corpuscular HGB Conc 31.7 g/dL (31.8-35.4); Mean Corpuscular Hemoglobin 30.7 pg (27.0-31.2); Mean Corpuscular Volume 97.1 fl (81-99); Mean Platelet Volume 7.6 fl (7.4-10.4); Monocytes # 0.3 K/mm3 (0.1-1.0); Monocytes % 6.3 % (1.7-9.3); Neutrophils # 2.9 K/mm3 (1.8-7.8); Neutrophils % 55.8 % (37.0-80.0); Platelet Count 316 K/mm3 (142-424); Red Cell Distribution Width 12.4 % (11.5-17.5); White Blood Count 5.2 K/mm3 (4.8-10.8)
[2023-01-04 08:20] LABS: Chloride 105 mmol/L (98-107); Potassium 4.8 mmoL/L (3.5-5.1); Sodium 140 mmol/L (136-145)
[2023-01-04 08:22] LABS: Blood Urea Nitrogen 16 mg/dl (7-17); Estimated Glomerular Filt Rate 81 ml/min (>60); GFR (African American) 97 ML/MIN (>60)
[2023-01-04 08:23] LABS: Alanine Aminotransferase 18 U/L (12-78); Albumin Level 3.9 g/dl (3.5-5.0); Albumin/Globulin Ratio 1.5 (1.1-1.8); Alkaline Phosphatase 88 U/L (38-126); Anion Gap 11.8 mEq/L (5-15); Aspartate Amino Transferase 26 U/L (14-36); Bilirubin,Total 0.6 mg/dl (0.2-1.3); Calcium 9.2 mg/dl (8.4-10.2); Carbon Dioxide 28 mmol/L (22.0-30.0); Chol/HDL Ratio 2.5 (1-3.5); Cholesterol 193 mg/dl (140-200); Globulin 2.6 g/dL (1.3-3.2); Glucose 93 mg/dl (74-100); HDL Cholesterol 77 mg/dl (40-60); Total Protein,Serum 6.5 g/dl (6.3-8.2); Triglycerides 134 mg/dl (30-150); VLDL Cholesterol 27 mg/dL (0-40)
[2023-01-04 08:34] LABS: Direct LDL Cholesterol 76.13 mg/dL (100-129)
[2023-01-04 08:54] LABS: Thyroid Stimulating Hormone 5.65 uIU/mL (0.465-4.68)
== END ==
PROVIDERS: PCP Family Medicine; Visit Provider Family Medicine
DX: E03.9 Hypothyroidism, unspecified (principal); E78.5 Hyperlipidemia, unspecified; F32.A Depression, unspecified; F41.9 Anxiety disorder, unspecified; K21.9 Gastro-esophageal reflux disease without esophagitis
CPT/HCPCS: 36415; 80053; 80061; 84443; 85025

== ENCOUNTER 2023-01-28 10:27 | Emergency (ER) | payer MEDICARE, OTHER, SELFPAY ==
[2023-01-28 10:28] VITALS: BP 152/70; PULSE 84; RESP 16; O2SAT 98; BMI 27.7
--- NOTE | 2023-01-28 10:55 | EXP.UTC ---
Discharge Plan Disposition Patient Disposition: Home, Self-Care Condition: Good Prescriptions Prescriptions: New methylprednisolone 4 mg Tablets,Dose Pack 4 mg PO DIRECTED Qty: 21 0RF No Action citalopram [Celexa] 20 mg tablet 20 mg PO DAILY Qty: 90 2RF levothyroxine 75 mcg tablet 75 mcg PO DAILY Qty: 90 2RF omeprazole 20 mg capsule,delayed release(DR/EC) 20 mg PO DAILY Qty: 90 2RF pravastatin [Pravachol] 40 MG tablet 40 mg PO DAILY Referrals Follow up/Referrals: Adolfo Delong MD [Primary Care Provider] - See instructions Activity Restrictions/Add. Instructions Additional Instructions/Restrictions: Go home and rest. It would be best if you rested tomorrow too. No heavy lifting. No twisting. Take the oral medications as directed. Don't start the oral steroids (medrol dose pack) until tomorrow, since you had the shots in here today. Follow up with your regular doctor. GO TO THE ER FOR ANY WORSENING SYMPTOMS OR CONCERN, ESPECIALLY BOWEL OR BLADDER ISSUES, SADDLE AREA NUMBNESS, FEVER, ETC Clinical Impressions Clinical Impression: Sciatica Stand Alone Forms Stand Alone Forms: Work/School Release Instructions Patient Instructions: Sciatica, DI for Sciatica Discharge ED Provider: Lizandro Billings [facility] General Stated complaint: left hip pain going down leg Mode of Arrival: Ambulatory Source of Information: Patient Limitations: No Limitations Time Seen by Provider: 01/28/23 10:55 Description of Symptoms (Recalled from Triage Doc. by RN): Patient reports left hip and leg pain since Monday. No injury noted. HEENT Symptoms (Recalled from RN notes): No Resp Symptoms (Recalled from RN notes): No Skin Symptoms (Recalled from RN notes): No MS Symptoms (Recalled from RN notes): Yes Functional Status (Recalled from RN notes): wnl History of Present Illness Provider Complaint: She reports that for the past 2 days she has had pain that radiates from her left lower back, down her left leg to below her knee. She denies any injury. She has had sciatica in the past and it felt just like this. She denies any fever/chills/malaise. Related Data Home Medications Medication Instructions Recorded Confirmed pravastatin 40 mg tablet 40 mg PO DAILY Cholesterol 10/10/17 01/03/23 (Pravachol) Previous Rx's Medication Instructions Recorded citalopram 20 mg tablet (Celexa) 20 mg PO DAILY Depression #90 tabs 01/03/23 levothyroxine 75 mcg tablet 75 mcg PO DAILY THYROID #90 tabs 01/03/23 omeprazole 20 mg capsule,delayed 20 mg PO DAILY GERD #90 caps 01/03/23 release methylprednisolone 4 mg tablets in 4 mg PO DIRECTED #21 tabs 01/28/23 a dose pack Allergies Allergy/AdvReac Type Severity Reaction Status Date / Time No Known Allergies Allergy Verified 01/03/23 14:10 Worker's Comp Is this a Worker's Comp case?: No [facility] Disclaimer: The information contained in this section may have been updated after the patient was seen, as this information can be updated by other users. Medical History (Updated 01/28/23 @ 11:27 by Lizandro Billings APRN) Acute bronchitis Bronchitis Cancer Contusion of hip Cough Diabetes mellitus, type 2 Fall History of stroke Leukocytosis Low back pain Muscle spasm Patient left without being seen Piriformis syndrome of right side Right hip pain Right thigh pain Sinusitis URI (upper respiratory infection) UTI (urinary tract infection) Surgical History (Updated 01/03/23 @ 14:21 by Alondra Graham LPN) H/O partial thyroidectomy Social History Smoking Status: Never smoker second hand exposure: No alcohol intake: never current occupational status: other Travel in the last 8 weeks: None household members: family housing: house current occupational exposures/hazards: No caffeine: Yes ROS Obtained: Yes All systems reviewed & no additional complaints e
[2023-01-28 11:28] VITALS: BP 152/70; PULSE 84; RESP 16; TEMP 36.7; O2SAT 98
== END 2023-01-28 11:29 | disposition home or self-care (01) ==
PROVIDERS: Emergency Provider Nurse Practitioner Family; PCP Internal Medicine Adolescent Medicine
DX: M54.32 Sciatica, left side (principal); E11.9 Type 2 diabetes mellitus without complications
CPT/HCPCS: 96372; 99212; 99214; G0463

== ENCOUNTER 2023-02-05 13:57 | Emergency (ER) | payer MEDICARE, OTHER, SELFPAY ==
--- NOTE | 2023-02-05 14:05 | XR_ITS ---
PROCEDURE INFORMATION: Exam: XR Left Knee Exam date and time: 02/05/2023 2:01 PM Age: 82 years old Clinical indication: Pain; Knee; Left TECHNIQUE: Imaging protocol: Radiologic exam of the left knee. Views: 3 views. COMPARISON: CR XR KNEE LT 3V 07/07/2021 11:59 AM FINDINGS: Bones/joints: No acute fracture or malalignment. No significant knee joint effusion. Patellar enthesopathy. Soft tissues: Unremarkable. IMPRESSION: 1. No evidence of acute osseous abnormality in the left knee. 2. Patellar enthesopathy.
[2023-02-05 14:20] VITALS: BP 129/68; PULSE 86; RESP 18; TEMP 37; O2SAT 98; BMI 28.2
--- NOTE | 2023-02-05 14:37 | EXP.UTC ---
Discharge Plan Disposition Patient Disposition: Home, Self-Care Condition: Good Prescriptions Prescriptions: No Action citalopram [Celexa] 20 mg tablet 20 mg PO DAILY Qty: 90 2RF levothyroxine 75 mcg tablet 75 mcg PO DAILY Qty: 90 2RF omeprazole 20 mg capsule,delayed release(DR/EC) 20 mg PO DAILY Qty: 90 2RF pravastatin [Pravachol] 40 MG tablet 40 mg PO DAILY Referrals Follow up/Referrals: Adolfo Delong MD [Primary Care Provider] - See instructions Activity Restrictions/Add. Instructions Additional Instructions/Restrictions: Follow up with Dr Delong for further evaluation and testing Follow up with Pain management for further evaluation Returnf if needed Straight to ER if any life threatening symptoms *RICE, Rest the extremity, Ice 15-20 minutes 3-4 times daily, Compress- wear the jimmy wrap as discussed as much as possible to help reduce swelling and pain, Elevate the extremity when at rest *Jimmy wrap is for support and help control swelling, use it except in the shower. Be sure that is not to tight but not to loose either *Elevate when resting? Clinical Impressions Clinical Impression: Acute pain of left knee Instructions Patient Instructions: How To Perform RICE (Rest, Ice, Compress, Elevate), DI for Knee Pain Discharge ED Provider: Sarina Lobato [facility] [place] General Stated complaint: LT leg/hip pain no known accident Time Seen by Provider: 02/05/23 14:45 History of Present Illness Provider Complaint: Patient states that last week she was having pain her left lower back into her hip and down leg to her knee area States that she was seen and given a injection and medrol pack and her hip and back is doing better but still having pain in her left knee that is worse with walking Denies known injury States that she has been taking OTC medications but not helped much 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 Related Data Home Medications Medication Instructions Recorded Confirmed pravastatin 40 mg tablet 40 mg PO DAILY Cholesterol 10/10/17 02/05/23 (Pravachol) Previous Rx's Medication Instructions Recorded citalopram 20 mg tablet (Celexa) 20 mg PO DAILY Depression #90 tabs 01/03/23 levothyroxine 75 mcg tablet 75 mcg PO DAILY THYROID #90 tabs 01/03/23 omeprazole 20 mg capsule,delayed 20 mg PO DAILY GERD #90 caps 01/03/23 release Allergies Allergy/AdvReac Type Severity Reaction Status Date / Time No Known Allergies Allergy Verified 01/03/23 14:10 [facility] Disclaimer: The information contained in this section may have been updated after the patient was seen, as this information can be updated by other users. Medical History (Updated 02/05/23 @ 14:59 by Sraina Lobato APRN) Acute bronchitis Bronchitis Cancer Contusion of hip Cough Diabetes mellitus, type 2 Fall History of stroke Leukocytosis Low back pain Muscle spasm Patient left without being seen Piriformis syndrome of right side Right hip pain Right thigh pain Sinusitis URI (upper respiratory infection) UTI (urinary tract infection) Surgical History (Updated 01/03/23 @ 14:21 by Alondra Graham LPN) H/O partial thyroidectomy Social History Smoking Status: Never smoker second hand exposure: No alcohol intake: never current occupational status: other Travel in the last 8 weeks: None household members: family housing: house current occupational exposures/hazards: No caffeine: Yes ROS Obtained: Yes All systems reviewed & no additional complaints except as documented and Yes Systems reviewed as appropriate & no additional complaints except as documented Constitutional Constitutional: Reports system reviewed and no additional complaints, except as documented, Reports as per HPI, Denies fever(s) and Denies headache(s) ENT Ears, Nose, Mouth, and Throat: Reports system reviewed and no additional co
[2023-02-05 15:20] VITALS: BP 129/68; PULSE 86; RESP 18; TEMP 37; O2SAT 98
== END 2023-02-05 15:25 | disposition home or self-care (01) ==
PROVIDERS: Emergency Provider Nurse Practitioner; PCP Internal Medicine Adolescent Medicine
DX: M25.562 Pain in left knee (principal); E11.9 Type 2 diabetes mellitus without complications
CPT/HCPCS: 73562; 96372; 99212; 99214; G0463

== ENCOUNTER → 2023-02-10 06:32 | Outpatient (CLI) | payer MEDICARE, OTHER, SELFPAY ==
--- NOTE | 2023-02-10 06:38 | XR_ITS ---
FINAL REPORT CLINICAL HISTORY: left sided sciatica FINDINGS: LUMBAR SPINE Three views demonstrate no acute fracture. There are moderate and severe degenerative changes. Note is made of leftward curvature. There is multilevel disc space narrowing and osteophyte formation. Facet arthropathy is seen in the lower lumbar spine. Vascular calcifications are identified. There is no malalignment. IMPRESSION: Multilevel degenerative changes as detailed above. Reviewed, Interpreted and Dictated by Po Thurman III, MD Transcribed by Pili Olmos Authenticated and [facility]
== END ==
PROVIDERS: PCP Family Medicine; Visit Provider Family Medicine
DX: M54.50 Low back pain, unspecified (principal); M54.32 Sciatica, left side
CPT/HCPCS: 72100

== ENCOUNTER → 2023-02-20 14:20 | Outpatient (CLI) | payer MEDICARE, OTHER, SELFPAY ==
--- NOTE | 2023-02-20 14:27 | MR_ITS ---
FINAL REPORT TECHNIQUE: Multiplanar MR without contrast CLINICAL HISTORY: referred pain to left hip and knee. LOW BACK PAIN COMPARISON: 08/17/2020 FINDINGS: Sagittal images show normal vertebral height. Alignment is normal. Marrow signal pattern is unremarkable. T12-L1: Unremarkable L1-2: Unremarkable L2-3: Unremarkable L3-4: Mild annular disc bulge covered by osteophytes. Mild central canal stenosis. Moderate right and mild left neural foraminal narrowing. L4-5: Mild annular disc bulge. Moderate facet arthropathy. Moderate central canal stenosis and mild bilateral neural foraminal narrowing. L5-S1: Moderate facet arthropathy without canal stenosis or neural foraminal narrowing. IMPRESSION: Degenerative disc disease as above. Reviewed, Interpreted and Dictated by Armani Negrete MD Transcribed by Pili Olmos Authenticated and [facility]
== END ==
PROVIDERS: PCP Family Medicine; Visit Provider Family Medicine
DX: M54.50 Low back pain, unspecified; M54.32 Sciatica, left side
CPT/HCPCS: 72148; 76376

== ENCOUNTER → 2023-04-27 16:54 | Outpatient (CLI) | payer MEDICARE, OTHER, SELFPAY ==
--- NOTE | 2023-04-27 17:00 | MR_ITS ---
PROCEDURE INFORMATION: Exam: MR Left Lower Extremity Joint Without Contrast, Knee Exam date and time: 04/27/2023 5:01 PM Age: 83 years old Clinical indication: Pain; Knee; Left; Additional info: Lt knee pain. Medial sided knee pain. No injury or trauma TECHNIQUE: Imaging protocol: Magnetic resonance imaging of the left lower extremity joint without contrast. Exam focused on the knee. COMPARISON: 1. CR XR KNEE LT 3V 02/05/2023 2:01 PM 2. CR XR KNEE LT 3V 07/07/2021 11:59 AM 3. CR Femur L 02/11/2019 1:56 PM FINDINGS: Bones/joints: A crescentic 1.6 x 1.2 cm focus of fluid bordered by sclerosis involving the subcortical bone of the medial femoral condyle weightbearing surface is consistent with a subchondral insufficiency fracture. There is slight flattening of the articular surface. This fracture has severe surrounding bone and soft tissue edema. A moderate joint effusion involves the knee. No aggressive bone lesions are present. There is grade III (out of IV) high-grade partial-thickness cartilage loss involving the medial compartment. There is grade II (out of IV) low-grade partial-thickness cartilage loss involving the patellofemoral joint. No significant cartilage damage involves the lateral compartment. Medial meniscus: A complex tear involves the posterior horn of the medial meniscus. Abnormal signal extends to both the superior and inferior meniscal surfaces. Lateral meniscus: The lateral meniscus shows no evidence of tear. Anterior cruciate ligament: The anterior cruciate ligament is intact. Posterior cruciate ligament: The posterior cruciate ligament is intact. Medial capsule and supporting structures: The medial collateral ligament is intact. Lateral capsule and supporting structures: The lateral collateral ligament complex is intact. Extensor mechanism of knee: Mild tendinosis involves the patellar tendon. The quadriceps tendon is intact with a normal striated appearance. Soft tissues: Severe soft tissue edema is centered around the medial knee fracture site. IMPRESSION: 1. Subchondral insufficiency fracture of the medial femoral condyle with minimal articular surface flattening and severe surrounding edema. 2. Complex tear of the medial meniscus posterior horn. 3. Grade III (out of IV) high-grade partial-thickness cartilage loss involving the medial joint compartment, consistent with moderate primary osteoarthritis. 4. 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
== END ==
PROVIDERS: PCP Family Medicine; Visit Provider Orthopaedic Surgery
DX: M25.562 Pain in left knee (principal)
CPT/HCPCS: 73721

== ENCOUNTER → 2023-07-04 08:36 | Outpatient (CLI) | payer MEDICARE, OTHER, SELFPAY ==
--- NOTE | 2023-07-04 08:41 | MR_ITS ---
FINAL REPORT CLINICAL HISTORY: Lt Knee Pain COMPARISON: 04/27/2023 FINDINGS: Multiplanar MR imaging of the left knee was performed without contrast. There is a tear of the posterior horn of the medial meniscus. There is medial subluxation of the body of the medial meniscus. The lateral meniscus is intact. The anterior and posterior cruciate ligaments are intact. The medial collateral ligament and lateral ligamentous complex are intact. The patellar and quadriceps tendons are intact. There are foci of patellar tendinitis. There is a chronic osteochondral lesion versus osteochondral fracture of the medial femoral condyle with bony fragments in the defect measuring 13 mm in transverse dimension. This is separate from the donor site posteriorly. This partial separation is new since previous. There are subchondral cysts in the medial femoral condyle with marrow edema. There is also marrow edema of the medial tibial plateau with a stable osteochondral lesion. Moderate and severe chondromalacia is noted, worst involving the medial compartment. Large joint effusion is seen. The musculature is intact. No soft tissue mass or cyst is identified. IMPRESSION: Worsening appearance of the osteochondral lesion versus osteochondral fracture of the medial femoral condyle. Large worsening joint effusion. Tear posterior horn medial meniscus. Chondromalacia as above. Reviewed, Interpreted and Dictated by Po Thurman III, MD Transcribed by Pili Olmos Authenticated and [facility]
== END ==
PROVIDERS: PCP Family Medicine; Visit Provider Orthopaedic Surgery
DX: S83.232A Complex tear of medial meniscus, current injury, left knee, initial encounter (principal); M25.562 Pain in left knee
CPT/HCPCS: 73721

== ENCOUNTER 2023-08-15 12:59 | Outpatient (CLI) | payer MEDICARE, OTHER, SELFPAY ==
--- NOTE | 2023-08-15 13:12 | ECG_ITS ---
APPROVED REPORT Exam: Resting ECG HR:68 bpm ECG Measurements Heart Rate 68 AXES KS 122 P 34 QRSd 89 QRS 32 QT 401 T 50 QTc 418 Conclusion SINUS RHYTHM POSSIBLE ANTERIOR MYOCARDIAL INFARCTION , OF INDETERMINATE AGE [30 ms Q WAVE IN V3/V4, OR R < 0.2 mV IN V4] ABNORMAL ECG UNCONFIRMED REPORT Electronically signed by : Adolfo Delong MD 08/16/2023 08:37:28
[2023-08-15 13:19] LABS: Microscopic, Urine URINE MICROSCOPIC (MICROSCOPIC)
--- NOTE | 2023-08-15 13:31 | XR_ITS ---
FINAL REPORT CLINICAL HISTORY: Pre Op FINDINGS: TWO-VIEW CHEST The heart size is normal. The mediastinum is normal. The lungs are clear. There is no pneumothorax. There are postoperative changes at the level of the atria. There are moderate degenerative changes in the thoracic spine. IMPRESSION: No acute cardiopulmonary process. Reviewed, Interpreted and Dictated by Po Thurman III, MD Transcribed by Pili Olmos Authenticated and . [facility]
[2023-08-15 13:34] LABS: Basophils % 0.4 % (0.1-2.0); Eosinophils # 0.1 K/mm3 (0.0-0.4); Eosinophils % 0.9 % (0.1-12.0); Hematocrit 47.6 % (37.0-47.0); Hemoglobin 14.6 g/dL (12.2-16.2); Lymphocytes # 2.1 K/mm3 (0.7-4.5); Lymphocytes % 27.1 % (10-50); Mean Corpuscular HGB Conc 30.6 g/dL (31.8-35.4); Mean Corpuscular Hemoglobin 29.8 pg (27.0-31.2); Mean Corpuscular Volume 97.2 fl (81-99); Mean Platelet Volume 7.2 fl (7.4-10.4); Monocytes # 0.4 K/mm3 (0.1-1.0); Monocytes % 4.6 % (1.7-9.3); Neutrophils # 5.3 K/mm3 (1.8-7.8); Platelet Count 389 K/mm3 (142-424); Red Cell Distribution Width 12.5 % (11.5-17.5); White Blood Count 7.9 K/mm3 (4.8-10.8)
[2023-08-15 14:07] LABS: Appearance,Urine CLEAR (Clear); Bilirubin,Urine Negative (Negative); Blood, Urine Negative (Negative); Color,Urine YELLOW (Yellow); Glucose,Urine (UA) Negative (Negative); Ketones,Urine Negative (Negative); Leukocyte Esterase,Urine Negative (Negative); Nitrate,Urine Negative (Negative); PH,Urine 6.5 (5.0-8.5); Protein,Urine Negative (Negative); Specific Gravity, Urine 1.025 (1.005-1.030); Urobilinogen,Urine 0.2 EU/dl (0.2)
[2023-08-15 14:17] LABS: Bacteria,Urine Trace /lpf; Mucus,Urine 1+ /lpf
[2023-08-15 14:39] LABS: Potassium 4.7 mmoL/L (3.5-5.1); Sodium 140 mmol/L (136-145)
[2023-08-15 14:41] LABS: Aspartate Amino Transferase 24 U/L (14-36); Blood Urea Nitrogen 14 mg/dl (7-17); Estimated Glomerular Filt Rate 69 ml/min (>60); GFR (African American) 83 ML/MIN (>60)
[2023-08-15 14:42] LABS: Alanine Aminotransferase 16 U/L (12-78); Albumin Level 4.3 g/dl (3.5-5.0); Albumin/Globulin Ratio 1.5 (1.1-1.8); Alkaline Phosphatase 85 U/L (38-126); Bilirubin,Total 0.6 mg/dl (0.2-1.3); Calcium 9.2 mg/dl (8.4-10.2); Carbon Dioxide 30 mmol/L (22.0-30.0); Globulin 2.9 g/dL (1.3-3.2); Glucose 97 mg/dl (74-100); Total Protein,Serum 7.2 g/dl (6.3-8.2)
[2023-08-15 14:52] LABS: Chloride 104 mmol/L (98-107)
[2023-08-15 14:53] LABS: Anion Gap 10.7 mEq/L (5-15)
== END 2023-08-15 23:59 ==
LOC: LAB 13:02
PROVIDERS: PCP Family Medicine; Visit Provider Orthopaedic Surgery
DX: Z01.818 Encounter for other preprocedural examination (principal); S83.232A Complex tear of medial meniscus, current injury, left knee, initial encounter; M17.12 Unilateral primary osteoarthritis, left knee; D72.828 Other elevated white blood cell count
CPT/HCPCS: 36415; 71046; 80053; 81001; 85025; 93005

== ENCOUNTER 2023-08-17 13:18 | Outpatient (CLI) | payer MEDICARE, OTHER, SELFPAY ==
--- NOTE | 2023-08-17 13:21 | CA_ITS ---
APPROVED REPORT EXAM: Comprehensive 2D, Doppler, and color-flow Echocardiogram Orthopedically Impaired Teacher: Kayley Hameed RT(R) Ht: 5 ft 6 in Wt: 178lbs BSA: 1.90 BP: 5/6 mmHg Indications: pre op clearance for ortho surgery 08/28/23, hyperlipidemia, hx of ASD repair 2010, Abn EKG. 2D Dimensions EF AP4 50.70 % GL Strain -13.8 % M-Mode Dimensions RVDd 1.25 cm (0.9-2.6) LVDd 3.92 cm (3.5-5.7) LVDs 2.60 cm (3.5-5.7) IVSd 0.71 cm (0.6-1.1) PWd 0.96 cm (0.6-1.1) EF (Teich) 63.10% FS 33.70% EDV (Teich) 66.70 mL ESV (Teich) 24.60 mL LV Diastology E Decel Time 177 (160-240 msec) E/A Ratio 0.6 Mitral Valve MV E Max Jacob. 56.0 (40-130 cm/s) MV A Velocity 87.0 (40-130 cm/s) E/A Ratio 0.64 MV PHT 52.0 ms Left Ventricle The left ventricle is normal size. The left ventricular systolic function is normal. The left ventricular ejection fraction is within the normal range. There is increased LV wall thickness. There is normal LV segmental wall motion. Transmitral Doppler flow pattern suggests impaired LV relaxation. LVEF is 55%. Right Ventricle The right ventricle size is difficult to estimate due to poor visualization of the RV free wall. Grossly, the right ventricle appears to have normal function. Atria The left atrium size is normal. The right atrium is not well visualized. s/p ASD repair. The interatrial septum is not well visualized. Aortic Valve The aortic valve is mildly thickened. There is no aortic valvular stenosis. No aortic regurgitation is present. Mitral Valve The mitral valve is normal in structure. No evidence of mitral valve stenosis. Trace mitral regurgitation. Tricuspid Valve The tricuspid valve leaflets are thin and pliable. Trace tricuspid regurgitation. There is insufficient TR jet to estimate RVSP. Pulmonic Valve The pulmonary valve is normal in structure. Trace pulmonic regurgitation. Great Vessels The aortic root is not well visualized. The IVC is not well visualized. Pericardium There is no pericardial effusion. Other Information Study Quality: Technically Difficult Conclusion Technically difficult study due to poor accoustic windows. Normal LV systolic function. RV not well visualized, but grossly normal RV function. No significant valvular stenosis or regurgitation. s/p ASD repair. The interatrial septum is not well visualized in this study. Electronically signed by : Eloise Zaldivar MD 08/20/2023 18:33:36
== END 2023-08-17 23:59 ==
LOC: RT 13:19
PROVIDERS: PCP Family Medicine; Visit Provider Physician Assistant
DX: R94.31 Abnormal electrocardiogram [ECG] [EKG] (principal); Z01.810 Encounter for preprocedural cardiovascular examination; Z87.74 Personal history of (corrected) congenital malformations of heart and circulatory system
CPT/HCPCS: 93306

== ENCOUNTER 2023-08-28 06:30 | Observation (INO) | payer MEDICARE, OTHER, SELFPAY ==
[2023-08-24 16:54] VITALS: BMI 28.7
[2023-08-28] VITALS (19 sets, daily range): BP systolic 126–170; BP diastolic 53–97; PULSE 65–80; RESP 14–18; TEMP 36.5–43; O2SAT 93–98; BMI 32.8
[2023-08-28] MEDS: LACTATED RINGERS 1000ML 1,000 ML 25 ML IV (06:25)
--- NOTE | 2023-08-28 07:28 | HMH.PHAINT1 ---
Pharmacy Intervention Comments: MEDICATION RECONCILIATION COMPLETED ON PATIENT USING EXTERNAL FILL HISTORY FROM PHARMACY AND LIST FROM CARDIOLOGY/PCP OFFICES. -FARIBA ORDONEZD
[2023-08-28] MEDS: CEFAZOLIN SODIUM 1 GM in 0.9 % SODIUM CHLORIDE 50 ML IV (07:31)
[2023-08-28] MEDS: SODIUM CHLORIDE 0.9% IV ×2 (07:40→09:55)
[2023-08-28] MEDS: TRANEXAMIC ACID IV ×2 (07:40→09:55)
--- NOTE | 2023-08-28 08:15 | P.PNANES_ITS ---
[facility] Disclaimer: The information contained in this section may have been updated after the patient was seen, as this information can be updated by other users. Medical History Abnormal electrocardiogram [ECG] [EKG] Acute bronchitis Bronchitis Cancer Contusion of hip Cough Encounter for pre-operative cardiovascular clearance Fall History of colon cancer History of gastroesophageal reflux (GERD) History of hyperlipidemia History of stroke Leukocytosis Low back pain Muscle spasm Piriformis syndrome of right side Right hip pain Right thigh pain Sinusitis URI (upper respiratory infection) UTI (urinary tract infection) Surgical History H/O partial thyroidectomy History of repair of atrial septal defect Family History Other No significant family history Social History Smoking Status: Never smoker second hand exposure: No alcohol intake: never substance use type: denies use current occupational status: other Travel in the last 8 weeks: None household members: family housing: house current occupational exposures/hazards: No caffeine: Yes [facility] Anesthesia Checklist Patient Identification Patient Identification: Verbal (Name & ) Structural Data Admitted From: Home Planned Operative Procedure/s: tka Consent for Planned Operative Procedure(s) Verified: Yes NPO Status Verified Time NPO: 00:00 Additional verifications Anesthesia Reactions: No Hx Blood Transfusions: No Blood Transfusion Reaction: No Airway Assessment Mallampati Score:: Class II C-Spine Mobility Assessed: Yes TMJ Mobility Assessed: Yes Dentition: Dentures-good fit Neurological Assessment Level of Consciousness: Awake, Alert and Appropriate Anesthesia Plan Anesthesia Risk discussed: Yes Anesthesia Plan: Verified ASA Class: II Anesthesia Type: Spinal
--- NOTE | 2023-08-28 10:45 | XR_ITS ---
FINAL REPORT CLINICAL HISTORY: pacu, POST TOTAL KNEE COMPARISON: None FINDINGS: 3 views demonstrate postoperative changes from left total knee arthroplasty. Hardware is intact. There is no drain. No skin ede are seen. No acute bony abnormality. No obvious complications. IMPRESSION: Expected postoperative changes from left total knee arthroplasty. Reviewed, Interpreted and Dictated by Armani Negrete MD Transcribed by Marci Law Authenticated and [facility]
--- NOTE | 2023-08-28 10:47 | EXP.ANES.I ---
[facility] Anesthesia Record Part I Anesthesia Record I Intake, IV Amount: 1,600 Hydration: Adequate Estimated blood loss (mL): 25 Urine output (mL): 0 Blood Products used (#): none Blood Pressure: 134/72 SaO2: 95 Pulse Rate: 80 Airway Patency: Patent Respiratory Rate: 16 Temperature: 97.9 F Patient is:: Drowsy and Stable Stable to PACU at:: 10:40
--- NOTE | 2023-08-28 11:00 | EXP.OP.NOTE ---
Date of procedure: 08/28/23 Pre-op Diagnosis:: Left knee end-stage osteoarthritis Post-op Diagnosis:: Same Procedure performed:: Left total knee arthroplasty Surgeon:: Sanford Craven DO MUSIC THEORY PROFESSOR:: Hima Camara Anesthesia: regional and spinal Estimated blood loss (mL): 50 Clinical Note:: Implants: Melina persona size 6 femur size D tibia 10 mm CR poly 32 mm patella Operative findings:: End-stage osteoarthritis with flaking of the entire medial femoral condyle and rimming osteophytes Operative note:: Patient was identified preoperatively. Left knee marked with yes and my initials. Transported operative suite. Given spinal anesthesia by the anesthesia. Then placed supine on the operating bed left lower extremity was prepped and draped normal sterile fashion. Once prepped and draped final operative timeout performed to identify proper patient procedure and extremity. Everyone involved the case agreed. There is no counter indications to beginning. Did receive preoperative antibiotics. Marking pen was used to lenora plan midline incision in the knee. Jimmy bandage used to exsanguinate the extremity and pneumatic tourniquet inflated to 300 mmHg. Knee was then flexed. Skin knife was used to incise through skin and subcutaneous tissue. Capsule was then cut in a standard medial parapatellar approach was utilized. The patella was everted. ACL was sacrificed. Components of the medial lateral meniscus were removed. There was soft flaking of the entire cartilage on the medial femoral condyle present. Using the intramedullary femoral guide distal cutting femoral guide was impacted into place and distal femoral resection was performed. The posterior referencing guide was then placed and the femur sized to a size 6. The alignment holes were then utilized and the trans epicondylar axis. The size six 4-in-1 cutting block was utilized anterior and posterior cuts were made anterior and posterior chamfer cuts were made. The femoral trial was then selected and impacted in place and gave good proper fit. Lug holes were then drilled. Attention was then brought to the tibia the tibia was subluxed anteriorly the remaining medial and lateral meniscus was sacrificed. The extramedullary tibial guide was utilized used cutting 2 mm off the most affected medial side. Additional 2 mm was then utilized after the first cut on the tibia. The tibial trial was selected and a size D was a proper fit. Initial tap was placed to hold this in place the drop rene was placed for proper alignment on the tibia and the drill and punch for the tibia was performed. I then started with a size 10 poly trial put this in place to take the knee through flexion extension mid flexion and all were balanced through range of motion. Attention was then brought to the patella which was flipped over and using the captured patella osteotomy guide 9 mm cut from the patella. It was sized to a size 32 and then the lug holes were drilled and trial patella was placed and knee was taken through range of motion flexion extension mid flexion found to be very stable. Final implants were called for an open on the back table. Once all the implants were open cement was mixed. Cemented in the tibial component followed by the femoral component placed the poly and patella implants brought the knee through range of motion found to be very stable with the patella tracking properly. Copious irrigation of the wound was performed with the Pulsavac. Tourniquet was deflated hemostasis was obtained. And then the capsule was closed with a running strata fix suture followed by deep layers with 0 Vicryl subcutaneous with 2-0 Vicryl and surgical clips in the skin for closure sterile dressing placed patient was then given a adductor canal block with Exparel by anesthesia and then taken to recovery in stable condition. Condition: stable Disposition: PACU Complications:: None apparent
--- NOTE | 2023-08-28 11:22 | PC.NURSE ---
arrived by bed from surgery
[2023-08-28] MEDS: HYDROCODONE/APAP 5/325 MG TABLET 1 TAB PO (12:12)
--- NOTE | 2023-08-28 13:12 | EXP.ANES.II ---
[facility] Anesthesia Record Part II Anesthesia Record Part II Discharge Time: 11:20 Destination: Medical Surgical Department PACU nurse assessment reviewed?: Yes Patient Condition:: Good Anesthesia Complications:: None Swallowing reflex intact?: Yes Airway Patency: Patent Cyanosis?: No Blood Pressure: 148/71 SaO2: 97 Respiratory Rate: 18 Pulse Rate: 67 Temperature: 97.9 F Mental Status: Alert & Oriented Pain level:: 0 Nausea and/or vomitting:: None Intake, IV Amount: 0 Hydration: Adequate
[2023-08-28] MEDS: KETOROLAC 30MG/ML VIAL 15 MG IV ×2 (13:47→23:40)
--- NOTE | 2023-08-28 13:51 | HMH.PTEV ---
Physical Therapy Evaluation Rehab PT IP Evaluation Start: 08/28/23 10:53 Freq: ONCE Status: Active Protocol: Document 08/28/23 13:37 CHARMAINE (Rec: 08/28/23 13:50 CHARMAINE [id number]) Subjective/History History History Pt presents s/p L TKA. Pt lives in a home with family member care as needed. 2 steps in home. Prior to surgery, pt was using cane for modified independent community and household ambulation. PMH: Abnormal electrocardiogram [ECG] [EKG], Acute bronchitis, Bronchitis, Cancer, Contusion of hip, Cough, Diabetes mellitus, type 2, Encounter for pre- operative cardiovascular clearance, Fall, History of stroke, Leukocytosis, low back pain, Muscle spasm, Piriformis syndrome, Right thigh pain, Sinusitis, URI, UTI Subjective Subjective Pt reports her knee is still causing her some post-op pain but is agreeable to PT evaluation. New diagnosis of cancer in past 12 No months? Rehab PT IP Eval Objective Appearance Patient Behavior Appropriate,Cooperative Patient Orientation Person,Place,Situation Speech Pattern Clear Ambulation Patient Able to Ambulate No Transfers Bed Transfer Ability Minimal x 1 (25% assist) Rehab PT IP prob,goals,plan Problems Date of Evaluation: 08/28/23 PT IP Problems Bed Mobility,Transfers,Gait, Balance,Self care,Safety Rehab Potential Rehab Potential Good Equipment Needs Assistive Devices Rolling / Wheeled Walker Plan PT Intervention Plan Bed Mobility,Transfers,Gait, Balance,Self care,Safety, Therapeutic Exercise Other Intervention Plan 1-2 times daily PT Plan Frequency Daily Duration LOS Discharge Goals Bed Transfer Ability Independent Sit to Stand Chair Transfer Ability Contact Guard/Hand Hold Ambulation Assistive Device Rolling Walker Ambulation Distance (feet) 20 Discharge Plan PT Discharge Plan Recommending d/c to short-term rehabilitation when deemed medically necessary. Pt unable to ambulate at this time d/t safety and pain. PT provided Supine HEP for pt to perform. Pt would benefit from skilled physical therapy to address deficits and prevent further functional decline. Eval Complexity Eval Charge Codes 31415 - Moderate Complexity PHYSICIAN CERTIFICATION: I certify the specified therapy services for Odalys Brink are required, authorized, and reviewed every 30 days.
--- NOTE | 2023-08-28 14:15 | SW/DCPLANNER ---
Addendum entered by Yandy Davis 08/29/23 13:55: Ju w/ [facility] stated that services will begin this week for this patient. Addendum entered by Yandy Davis 08/29/23 12:34: Patient information/order has been faxed to [facility]. Addendum entered by Yandy Davis 08/29/23 09:43: Patient is agreeable to home health services and prefers to use [facility]. Patient also requested a rolling walker and bedside commode from [facility]. Patient will reside w/ her daughter Leila at [address] [place] [address] [place] [address] . The plan for this patient is to discharge home today. Original Note: I spoke w/ this patient regarding plans once medically stable for discharge. PT/OT evaluated patient and recommends placement at this time. Patient expressed an interest in placement at time of discharge. I discussed placement options (private pay due to not having qualifying stay): patient stated that this is not an options and she will discuss further discharge plans w/ her family this evening. Patient stated that she now thinks she will be interested in home health services. I will follow up w/ patient and family tomorrow morning regarding discharge plans. Patient stated that she already has a cane at home.
[2023-08-28] MEDS: CEFAZOLIN SODIUM 2 GM in 0.9 % SODIUM CHLORIDE 100 ML IV ×2 (16:28→20:46)
[2023-08-28] MEDS: HYDROCODONE/APAP 5/325 MG TABLET 2 TAB PO ×2 (16:28→20:46)
[2023-08-28] MEDS: ASPIRIN 325MG TABLET 325 MG PO (20:48)
[2023-08-29] VITALS: BP 111/55; PULSE 79; RESP 16; TEMP 36.9; O2SAT 94
[2023-08-29 04:00] VITALS: BP 116/56; PULSE 80; RESP 16; TEMP 36.7; O2SAT 94; BMI 35.4
[2023-08-29] MEDS: HYDROCODONE/APAP 5/325 MG TABLET 2 TAB PO ×2 (04:06→14:41)
[2023-08-29 06:39] LABS: Basophils % 0.4 % (0.1-2.0); Eosinophils # 0.2 K/mm3 (0.0-0.4); Eosinophils % 1.8 % (0.1-12.0); Hematocrit 37.6 % (37.0-47.0); Hemoglobin 12.2 g/dL (12.2-16.2); Lymphocytes # 1.6 K/mm3 (0.7-4.5); Lymphocytes % 19.2 % (10-50); Mean Corpuscular HGB Conc 32.4 g/dL (31.8-35.4); Mean Corpuscular Hemoglobin 31.5 pg (27.0-31.2); Mean Corpuscular Volume 97.2 fl (81-99); Mean Platelet Volume 7.7 fl (7.4-10.4); Monocytes # 0.7 K/mm3 (0.1-1.0); Monocytes % 8.2 % (1.7-9.3); Neutrophils # 5.9 K/mm3 (1.8-7.8); Neutrophils % 70.4 % (37.0-80.0); Platelet Count 285 K/mm3 (142-424); Red Blood Count 3.87 M/mm3 (4.20-5.40); Red Cell Distribution Width 12.7 % (11.5-17.5); White Blood Count 8.3 K/mm3 (4.8-10.8)
[2023-08-29 06:45] LABS: Anion Gap 4.8 mEq/L (5-15); Blood Urea Nitrogen 13 mg/dl (7-17); Calcium 8.4 mg/dl (8.4-10.2); Carbon Dioxide 32 mmol/L (22.0-30.0); Chloride 108 mmol/L (98-107); Creatinine Clearance Estimated 70 mL/min (50-200); Estimated Glomerular Filt Rate 69 ml/min (>60); GFR (African American) 83 ML/MIN (>60); Glucose 108 mg/dl (74-100); Potassium 4.8 mmoL/L (3.5-5.1); Sodium 140 mmol/L (136-145)
[2023-08-29 07:33] VITALS: BP 121/67; PULSE 79; RESP 18; TEMP 36.5; O2SAT 90
[2023-08-29] MEDS: ASPIRIN 325MG TABLET 325 MG PO (08:28)
[2023-08-29] MEDS: HYDROCODONE/APAP 5/325 MG TABLET 1 TAB PO ×2 (08:28→14:04)
--- NOTE | 2023-08-29 09:42 | HMH.OTEV ---
OT Inpatient Evaluation Rehab OT IP Evaluation Start: 08/29/23 08:39 Freq: ONCE Status: Active Protocol: Document 08/29/23 09:37 [facility] (Rec: 08/29/23 09:42 [facility] [id number]) Rehab OT IP Assessment Subjective History Pt oriented x 4 on arrival. Pt agreeable to engage in therapy evaluation. Pt was admitted on 08/28/23 after having left TKA. Pt lives in a home with family member care as needed. 2 steps in home. Prior to surgery, pt was using cane for modified independent community and household ambulation. 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 She was independent with all ADLs and IADLs. Pt also still drove. PMH: Abnormal electrocardiogram [ECG] [EKG], Acute bronchitis, Bronchitis, Cancer, Contusion of hip, Cough, Diabetes mellitus, type 2, Encounter for pre- operative cardiovascular clearance, Fall, History of stroke, Leukocytosis, low back pain, Muscle spasm, Piriformis syndrome, Right thigh pain, Sinusitis, URI, UTI Subjective It feels better than yesterday. Objective Patient Orientation Person,Place,Birthday,Year Right Upper Extremity Gross ROM WFL Left Upper Extremity Gross ROM WFL Bed Mobility bed mobility-scooting,bed mobility - supine/sit Assist Level Contact Guard/Hand Hold Transfer Training Sit/Stand Transfer Assist Level Contact Guard/Hand Hold Rehab OT IP prob,goals,plan Problems Date of Evaluation: 08/29/23 OT IP Problems Bed Mobility,Transfers,Balance ,Self care,Safety Rehab Potential Rehab Potential Good Equipment Needs Assistive Devices Rolling / Wheeled Walker Plan OT intervention Plan Bed Mobility,Transfers,Balance ,Self care,Safety,Therapeutic Exercise OT Plan Frequency Daily Duration LOS Discharge Goals Bed Mobility Ability Standby Assistance Sit to Stand Chair Transfer Ability Supervision/Stand by Chair Transfer Ability Supervision/Stand by Chair Transfer Technique Sit to/from Ambulatory Chair Transfer Assistive Devices Rolling Walker Feeding Ability Assist with Tray Set Up Lower Body Dressing Ability Moderate Assistance Upper Body Dressing Ability Standby Assistance Bathing Ability Moderate Assistance Performing Toilet Hygiene Ability Minimal Assistance Overall Commode/Toilet Transfer Ability Contact Guard Commode/Toilet Transfer Technique Sit to/from Ambulatory Commode/Toilet Transfer Assistive Grab Bars Devices Oral Care Assist Independent Decrease in Endurance No Discharge Plan OT Discharge Plan Pt will continue to be seen for OT services while at [facility]. Family present during therapy evaluation and reports she will have assistance 20/02 at home for a while. Pt can return home with family. Therapist recommends outpatient PT evaluation for continued skilled therapy for L knee. Eval Complexity Eval Charge Codes 88510 - Moderate Complexity PHYSICIAN CERTIFICATION: I certify the specified therapy services for Odalys Brink are required, authorized, and reviewed every 30 days.
[2023-08-29] MEDS: KETOROLAC 30MG/ML VIAL 15 MG IV (11:28)
[2023-08-29 11:40] VITALS: BP 131/67; PULSE 82; RESP 18; TEMP 36.8; O2SAT 91
--- NOTE | 2023-08-29 12:11 | P.HPDS_ITS ---
General Admission date:: 08/28/23 Discharge date: 08/29/23 *Admission Date: 08/28/23 *Chief complaint: End-stage osteoarthritis left knee *History of present illness: Pleasant 83-year-old female with history of severe debilitating end-stage osteoarthritis left knee. Presented to the hospital on 08/28/2023 for left total knee arthroplasty. [facility] Disclaimer: The information contained in this section may have been updated after the patient was seen, as this information can be updated by other users. Medical History Abnormal electrocardiogram [ECG] [EKG] Acute bronchitis Bronchitis Cancer Contusion of hip Cough Encounter for pre-operative cardiovascular clearance Fall History of colon cancer History of gastroesophageal reflux (GERD) History of hyperlipidemia History of stroke Leukocytosis Low back pain Muscle spasm Piriformis syndrome of right side Right hip pain Right thigh pain Sinusitis URI (upper respiratory infection) UTI (urinary tract infection) Surgical History H/O partial thyroidectomy History of repair of atrial septal defect Family History Other No significant family history Social History Smoking Status: Never smoker second hand exposure: No alcohol intake: never substance use type: denies use current occupational status: employed and other Travel in the last 8 weeks: None household members: family housing: house current occupational exposures/hazards: No caffeine: Yes Review of Systems Constitutional Constitutional: Reports system reviewed and no additional complaints, except as documented Eyes Eyes: Reports system reviewed and no additional complaints, except as documented ENT Ears, Nose, Mouth, and Throat: Reports system reviewed and no additional complaints, except as documented *Cardiovascular Cardiovascular: Denies chest pain and Denies dyspnea on exertion *Respiratory Respiratory: Denies dyspnea on exertion *Gastrointestinal Gastrointestinal: Reports system reviewed and no additional complaints, except as documented *Genitourinary Genitourinary: Reports system reviewed and no additional complaints, except as documented *Musculoskeletal Musculoskeletal: Reports as per HPI, Reports abnormal gait and Reports arthralgias Integumentary/Breasts Skin/Breast: Reports system reviewed and no additional complaints, except as documented *Neurologic Neurologic: Reports abnormal gait Psychiatric Psychiatric: Reports system reviewed and no additional complaints, except as documented Endocrine Endocrine: Reports system reviewed and no additional complaints, except as documented Hematologic/Lymphatic Hematologic/Lymphatic: Reports system reviewed and no additional complaints, except as documented Allergic/Immunologic Allergic/Immunologic: Reports system reviewed and no additional complaints, except as documented Exam Data for Last 24 hours Vital signs and Labs for Last 24 Hours: Temp Pulse Resp BP Pulse Ox O2 Del Method 98.3 F 82 18 131/67 91 L Room Air 08/29/23 11:40 08/29/23 11:40 08/29/23 11:40 08/29/23 11:40 08/29/23 11:40 08/29/23 11:40 Laboratory Results - last 24 hr 08/29/23 05:35: WBC 8.3, RBC 3.87 L, Hgb 12.2, Hct 37.6, MCV 97.2, MCH 31.5 H, MCHC 32.4, RDW 12.7, Plt Count 285, MPV 7.7, Neut % (Auto) 70.4, Lymph % (Auto) 19.2, [place]lette % (Auto) 8.2, Eos % (Auto) 1.8, Baso % (Auto) 0.4, Neut # (Auto) 5.9, Lymph # (Auto) 1.6, [place]lette # (Auto) 0.7, Eos # (Auto) 0.2, Baso # (Auto) 0.0, Sodium 140, Potassium 4.8, Chloride 108 H, Carbon Dioxide 32 H, Anion Gap 4.8 L, BUN 13, Creatinine 0.80, Estimated Creat Clear 70, Estimated GFR 69, Est GFR ( Amer) 83, Glucose 108 H, Calcium 8.4 I & O for Last 24 hours: Intake & Output 08/26/23 08/27/23 08/28/23 08/29/23 23:59 23:59 23:59 23:59 Intake Total 2550 / 2550 480 / 480 Output Total 800 / 800 100 / 100 Balance 1750 / 1750 380 / 380 Weight 203 lb 8 oz 220 lb 4.8 oz *Routine HEENT Exam Head: Present normocephalic and atraumatic Eye: Present PERRL ENT: Present mucous membranes moist *Routine Neck Exam Neck: Present supple *Routine Respiratory Exam Respiratory: Absent accessory muscle use or decreased breath sounds *Routine Cardiovascular Exam Cardiovascular: Present RRR *Routine Abdominal Exam Abdominal: Absent tenderness *Routine Rectal Exam Rectal:: deferred *Routine Genitalia Exam Genitalia:: deferred *Routine Extremities Exam Comments: Skin intact dressing intact left knee. *Routine Skin Exam Comments: Benign surgical wound *Routine Neurological Exam Neurological: Present alert and oriented X3 Additional Findings:: X-rays left knee postoperatively reveal total knee arthroplasty implants in good alignment good position Meds Home Medications and Allergies Home Medications Medication Instructions Recorded Confirmed Type citalopram 20 mg tablet (Celexa) 20 mg PO DAILY Depression #90 tabs 01/03/23 08/28/23 Rx celecoxib 200 mg capsule (Celebrex) 200 mg PO BID Pain 08/28/23 08/28/23 History estradiol 0.01% (0.1 mg/gram) 1 applic vaginal DAILY 08/28/23 08/28/23 History vaginal cream levothyroxine 75 mcg tablet 75 mcg PO DAILY Thyroid 08/28/23 08/28/23 History omeprazole 20 mg capsule,delayed 20 mg PO DAILY Acid Reflux 08/28/23 08/28/23 History release pravastatin 40 mg tablet 40 mg PO DAILY Cholesterol 08/28/23 08/28/23 History aspirin 325 mg capsule 325 mg PO BID #60 caps 08/29/23 Rx oxycodone-acetaminophen 5 mg-325 1 tab PO Q6H PRN post op pain #40 08/29/23 Rx mg tablet tabs New Prescriptions to Start Prescriptions: aspirin Sanford Craven oxycodone-acetaminophen Sanford Craven Allergies Allergy/AdvReac Type Severity Reaction Status Date / Time No Known Allergies Allergy Verified 08/28/23 06:30 Hospital Course Hospital Course Hospital Course: Patient underwent uneventful left total knee arthroplasty on 06/28/2024. Admitted overnight to the hospital for physical therapy evaluation and treatment. Pain management. Patient tolerated procedure very well. She was up with physical therapy and Occupational Therapy. Found to be stable for discharge home on 08/29/2023. Will need home health for home physical therapy occupational therapy and wound care with dressing changes. Results Data Completed and Pending Labs on day of discharge: Labs from last 24 hours 08/29/23 05:35 WBC 8.3 RBC 3.87 L Hgb 12.2 Hct 37.6 MCV 97.2 MCH 31.5 H MCHC 32.4 RDW 12.7 Plt Count 285 MPV 7.7 Neut % (Auto) 70.4 Lymph % (Auto) 19.2 Sublette % (Auto) 8.2 Eos % (Auto) 1.8 Baso % (Auto) 0.4 Neut # (Auto) 5.9 Lymph # (Auto) 1.6 Sublette # (Auto) 0.7 Eos # (Auto) 0.2 Baso # (Auto) 0.0 Sodium 140 Potassium 4.8 Chloride 108 H Carbon Dioxide 32 H Anion Gap 4.8 L BUN 13 Creatinine 0.80 Estimated Creat Clear 70 Estimated GFR 69 Est GFR ( Amer) 83 Glucose 108 H Calcium 8.4 Impressions Impressions: End-stage osteoarthritis left knee DS: Diagnosis Discharge Diagnosis (1) Diabetes mellitus, type 2: Status: Acute Code(s): E11.9 - Type 2 diabetes mellitus without complications Qualifiers: Diabetes mellitus complication status: without complication Diabetes mellitus correction insulin use: without terminal worker use Qualified Code(s): E11.9 - Type 2 diabetes mellitus without complications (2) Osteoarthritis of left knee: Status: Acute Code(s): M17.12 - Unilateral primary osteoarthritis, left knee Qualifiers: Osteoarthritis type: primary Qualified Code(s): M17.12 - Unilateral primary osteoarthritis, left knee (3) Insufficiency fracture of medial femoral condyle: Status: Acute Code(s): M84.453A - Pathological fracture, unspecified femur, initial encounter for fracture Problem details: Left knee (4) Complex tear of medial meniscus of left knee: Status: Acute Code(s): S83.232A - Complex tear of medial meniscus, current injury, left knee, initial encounter Qualifiers: Encounter type: subsequent encounter Tear current or old: current Qualified Code(s): S83.232D - Complex tear of medial meniscus, current injury, left knee, subsequent encounter Discharge Plan Disposition Patient Disposition: Home Health Service Condition: Good Discharge Order Discharge Orders: Discharge Order (Routine); Ordered 08/29/23 Ordered By: Sanford Craven Follow up Plan Follow up with: Sanford Craven DO [Staff Physician] - 2 weeks Prescriptions/Medication Reconciliation: New oxycodone-acetaminophen 5-325 mg tablet 1 tab PO Q6H PRN (Reason: post op pain) Qty: 40 0RF aspirin 325 mg capsule 325 mg PO BID Qty: 60 0RF Continued citalopram [Celexa] 20 mg tablet 20 mg PO DAILY Qty: 90 2RF pravastatin 40 mg tablet 40 mg PO DAILY levothyroxine 75 mcg tablet 75 mcg PO DAILY omeprazole 20 mg capsule,delayed release(DR/EC) 20 mg PO DAILY estradiol 0.01 % (0.1 mg/gram) cream 1 applic vaginal DAILY Held celecoxib [Celebrex] 200 mg capsule 200 mg PO BID Hold Instructions: Resume on 09/14/23. Problem Reconciliation Problems Reviewed?: Yes Patient Discharge Instructions ACTIVITY: Ambulate as tolerated DIET: advance to your usual diet Additional Instructions: Home health wound care instructions: Sterile dressing changes every other day left knee until no drainage. Home health instructions for physical therapy range of motion strengthening ambulatory assistance and guidance. Weightbearing as tolerated left lower extremity. Rolling walker for ambulation. Instructed to take aspirin 325 mg twice daily for the next 4 weeks for DVT prophylaxis. Patient Instructions: DI for Knee Replacement, DI for Surgical Site Infection Providers Primary Care Provider: Carson Cabrera Admit Provider: Sanford Craven Attending Provider: Sanford Craven
--- NOTE | 2023-08-30 14:03 | CARE MANAGER ---
Contacted patient related to hospital discharge. She states home health is there right now. She denies questions or concerns. MAYRA Skelton
== END 2023-08-29 14:57 | disposition home health service (06) ==
LOC: 2ND 06:30
PROVIDERS: Admitting Provider Orthopaedic Surgery; PCP Family Medicine; Visit Provider Orthopaedic Surgery
PROC: (CPT 27447; principal; 2023-08-28 07:30)
DX: E11.9 Type 2 diabetes mellitus without complications (principal); M17.12 Unilateral primary osteoarthritis, left knee; M84.452A Pathological fracture, left femur, initial encounter for fracture; S83.232A Complex tear of medial meniscus, current injury, left knee, initial encounter; Z79.899 Other long term (current) drug therapy; Q85.89 Other phakomatoses, not elsewhere classified
CPT/HCPCS: 27447; 36415; 73562; 80048; 85025; 96374; 97162; 97166; 97530; C1713; C1776; C9290; G0378; J2405

== ENCOUNTER 2023-08-30 21:54 | Inpatient (IN) | payer MEDICARE, OTHER, SELFPAY ==
[2023-08-30 21:54] VITALS: BP 153/73; PULSE 92; RESP 22; TEMP 37.1; O2SAT 94; BMI 28.7
--- NOTE | 2023-08-30 22:05 | ECG_ITS ---
APPROVED REPORT Exam: Resting ECG HR:88 bpm ECG Measurements Heart Rate 88 AXES MO 150 P 63 QRSd 82 QRS 30 QT 333 T 66 QTc 378 Conclusion SINUS RHYTHM POSSIBLE LEFT ATRIAL ENLARGEMENT [-0.1mV P-WAVE IN V1/V2] BORDERLINE ECG UNCONFIRMED REPORT Electronically signed by : Adolfo Delong MD 08/31/2023 16:33:58
--- NOTE | 2023-08-30 22:17 | CT_ITS ---
PROCEDURE INFORMATION: Exam: CTA Chest With Contrast Exam date and time: 08/30/2023 10:37 PM Age: 83 years old Clinical indication: Shortness of breath; Additional info: SOA, hypoxemia, recent surgery TECHNIQUE: Imaging protocol: Computed tomographic angiography of the chest with contrast. Exam focused on the arteries. 3D rendering (Not supervised by radiologist): MIP and/or 3D reconstructed images were created by the technologist. Total images: 435 Radiation optimization: All CT scans at this facility use at least one of these dose optimization techniques: automated exposure control; mA and/or kV adjustment per patient size (includes targeted exams where dose is matched to clinical indication); or iterative reconstruction. Contrast material: ISOVUE; Contrast volume: 75 ml; Contrast route: INTRAVENOUS (IV); COMPARISON: CR XR CHEST PORTABLE 08/30/2023 10:20 PM FINDINGS: Pulmonary arteries: Adequate contrast opacification of the pulmonary arteries. Main pulmonary arteries are mildly enlarged. There are scattered nonocclusive segmental pulmonary emboli bilaterally. Overall, embolic burden is considered mild. Most conspicuous areas of involvement medial right middle lobe, axial image 65, left upper lobe axial image 49 and left lower lobe axial image 69. Aorta: Mildly atherosclerotic thoracic aorta without aneurysm or dissection. Two vessel aortic arch is a normal anatomic variation. Thyroid: Status post left thyroidectomy. Lungs: Trachea and main bronchi are patent. 8 mm partially calcified right apical nodule, axial image 23 series 5, most likely benign granuloma. Mild bibasilar atelectasis. No airspace consolidation or concerning infiltrate. No discrete lung mass. Linear atelectasis or scarring superior segment right lower lobe. Pleural spaces: Trace right pleural effusion. Heart: Normal heart size. No pericardial effusion. Status post ASD repair. No secondary signs for cardiac strain. Small quantity fluid in the superior pericardial recess is considered physiologic. Heart RV/LV ratio: RV to LV ratio 1.0. Coronary arteries: No significant coronary artery calcifications. Mediastinal space: No mediastinal mass or fluid collection. Lymph nodes: No mediastinal hilar lymphadenopathy. Diaphragm: Moderate eventration right hemidiaphragm. Tiny hiatal hernia. Gallbladder and bile ducts: Layering cholelithiasis. No secondary signs of acute cholecystitis. Kidneys and ureters: Incompletely visualized fullness in the left renal sinus may reflect peripelvic cyst. Bones/joints: Osteopenia. Moderate degenerative changes mid lower thoracic spine. Soft tissues: Unremarkable. IMPRESSION: 1. Acute scattered bilateral segmental pulmonary emboli. Mild overall clot burden. No occlusive disease. 2. RV to LV ratio 1.0. No significant cardiac strain. 3. Mild bibasilar atelectasis. 4. Trace right pleural effusion. 5. Cholelithiasis. 6. Additional chronic and incidental findings. COMMENTS: Consistent with the [employer]'s Incidental Findings Committee white paper (J Am Bryce Radiol 2018): Any incidental renal lesion less than 1 cm or classified as too small to characterize, or any incidental cystic renal lesion characterized as simple-appearing, is likely benign. No follow-up imaging is recommended for these lesions per consensus recommendations based on imaging criteria.
--- NOTE | 2023-08-30 22:20 | XR_ITS ---
PROCEDURE INFORMATION: Exam: XR Chest Exam date and time: 08/30/2023 10:20 PM Age: 83 years old Clinical indication: Shortness of breath; Additional info: SOA TECHNIQUE: Imaging protocol: Radiologic exam of the chest. Views: 1 view. Total images: 1 COMPARISON: CR XR CHEST 2V 08/15/2023 1:55 PM FINDINGS: Lungs: Unremarkable. No consolidation. No pulmonary vascular congestion or edema. Pleural spaces: Unremarkable. No pleural effusion. No pneumothorax. Heart/Mediastinum: Unremarkable. No cardiomegaly. No mediastinal widening or hilar enlargement. Vasculature: Atherosclerotic and tortuous thoracic aorta. Diaphragm: Moderate eventration right hemidiaphragm. Bones/joints: Osteopenia. Moderate degenerative changes thoracic spine. Mild degenerative changes bilateral shoulders. IMPRESSION: No radiographically acute cardiopulmonary process.
[2023-08-30 22:29] LABS: Basophils % 0.4 % (0.1-2.0); Eosinophils # 0.1 K/mm3 (0.0-0.4); Eosinophils % 0.9 % (0.1-12.0); Hematocrit 36.8 % (37.0-47.0); Hemoglobin 11.8 g/dL (12.2-16.2); Lymphocytes # 1.8 K/mm3 (0.7-4.5); Lymphocytes % 15.3 % (10-50); Mean Corpuscular HGB Conc 32.2 g/dL (31.8-35.4); Mean Corpuscular Hemoglobin 31.7 pg (27.0-31.2); Mean Corpuscular Volume 98.3 fl (81-99); Mean Platelet Volume 7.7 fl (7.4-10.4); Monocytes # 0.7 K/mm3 (0.1-1.0); Monocytes % 5.7 % (1.7-9.3); Neutrophils % 77.7 % (37.0-80.0); Platelet Count 260 K/mm3 (142-424); Red Blood Count 3.74 M/mm3 (4.20-5.40); Red Cell Distribution Width 12.7 % (11.5-17.5); White Blood Count 11.6 K/mm3 (4.8-10.8)
--- NOTE | 2023-08-30 22:30 | PC.NURSE ---
patient gone to CT at this time.
--- NOTE | 2023-08-30 22:34 | PC.NURSE ---
pt transported to CT
[2023-08-30 22:35] LABS: Chloride 101 mmol/L (98-107); Sodium 137 mmol/L (136-145)
[2023-08-30 22:36] LABS: Potassium 4.2 mmoL/L (3.5-5.1)
[2023-08-30 22:38] LABS: Alanine Aminotransferase 19 U/L (12-78); Albumin Level 3.4 g/dl (3.5-5.0); Albumin/Globulin Ratio 1.1 (1.1-1.8); Alkaline Phosphatase 83 U/L (38-126); Anion Gap 6.2 mEq/L (5-15); Aspartate Amino Transferase 31 U/L (14-36); Bilirubin,Total 0.7 mg/dl (0.2-1.3); Blood Urea Nitrogen 12 mg/dl (7-17); Carbon Dioxide 34 mmol/L (22.0-30.0); Creatinine Clearance Estimated 56 mL/min (50-200); Estimated Glomerular Filt Rate 80 ml/min (>60); GFR (African American) 97 ML/MIN (>60); Globulin 3.1 g/dL (1.3-3.2); Total Protein,Serum 6.5 g/dl (6.3-8.2)
[2023-08-30 22:39] LABS: VBG Base Excess 1.6 mmol/L (-2.4-2.3); VBG HCO3 27.9 mmol/L (23-30); VBG Oxygen Saturation 60.9 % (50-70); VBG PH 7.31 mmol/L (7.31-7.41); VBG PO2 30.7 mmol/L (28-40); VBG Total CO2 29.6 mmol/L (23-27)
[2023-08-30 22:39] LABS: Calcium 9.2 mg/dl (8.4-10.2); Glucose 99 mg/dl (74-100)
--- NOTE | 2023-08-30 22:39 | PC.NURSE ---
Spoke with RT, running VBG at this time
[2023-08-30] MEDS: SODIUM CHLORIDE 0.9% 10ML SYR (RAD ONLY) 10 ML IV (22:42)
[2023-08-30] MEDS: IOPAMIDOL-370 (76%);100ML BOTTLE 75 ML IV (22:42)
--- NOTE | 2023-08-30 22:42 | PC.NURSE ---
patient back in room at this time.
[2023-08-30 22:43] LABS: VBG PCO2 56.9 mmol/L (35-51)
[2023-08-30 22:48] LABS: NT Pro Brain Natriuretic Pep. 733 pg/mL (0-450)
[2023-08-30 22:51] LABS: Troponin I 0.06 ng/ml (0.00-0.034)
[2023-08-30 23:03] VITALS: BP 173/91; PULSE 89; O2SAT 96
[2023-08-30] MEDS: HEPARIN SODIUM 5,000 UNIT/ML VIAL 5000 UNIT IV (23:03)
--- NOTE | 2023-08-30 23:05 | PC.NURSE ---
hospitalist at bedside. marty at bedside
[2023-08-30 23:09] LABS: Activated Partial Thrombo Time 28.2 seconds (22.8-30.6)
[2023-08-30 23:14] LABS: INR 0.92 (0.9-1.1)
[2023-08-30 23:19] LABS: PTT Heparin (inpatient only) 28.2 Seconds (23.6-34.0)
[2023-08-30 23:30] VITALS: BP 185/66; PULSE 91; O2SAT 99
--- NOTE | 2023-08-30 23:33 | PC.NURSE ---
Pt provided ice chips
--- NOTE | 2023-08-30 23:36 | ED_ITS ---
Discharge Plan Disposition Patient Disposition: Admitted Chief Complaint: Shortness of Breath/Dyspnea Prescriptions Prescriptions: No Action citalopram [Celexa] 20 mg tablet 20 mg PO DAILY Qty: 90 2RF pravastatin 40 mg tablet 40 mg PO DAILY levothyroxine 75 mcg tablet 75 mcg PO DAILY omeprazole 20 mg capsule,delayed release(DR/EC) 20 mg PO DAILY estradiol 0.01 % (0.1 mg/gram) cream 1 applic vaginal DAILY oxycodone-acetaminophen 5-325 mg tablet 1 tab PO Q6H PRN (Reason: post op pain) Qty: 40 0RF aspirin 325 mg capsule 325 mg PO BID Qty: 60 0RF Referrals Follow up/Referrals: Carson Cabrera MD [Primary Care Provider] - See instructions Clinical Impressions Clinical Impression: Acute hypoxemic respiratory failure Pulmonary emboli Qualifiers: Pulmonary embolism type: other Chronicity: acute Acute cor pulmonale presence: with acute cor pulmonale Qualified Code(s): I26.09 - Other pulmonary embolism with acute cor pulmonale Discharge ED Provider: Darwin Vaughn HPI General Chief Complaint: Shortness of Breath/Dyspnea Stated Complaint: SOA Time Seen by Provider: 08/30/23 22:00 Mode of Arrival: EMS Source of Information: Patient Limitations: No Limitations Description of Symptoms (Recalled from ER Triage Doc. by RN): Pt brought in from home by EMS witth c/o SOA that began today. When EMS arrived pt was 82% ra, applied 2l/nc 94%. Pt is 3 days post op from Left total knee replacement. States she has moderate pain in her left leg. History of Present Illness HPI narrative: 83-year-old female history of hypertension, hyperlipidemia, diabetes, recent left knee replacement on 08/28 presenting with short of breath states she was all of a sudden hit with shortness of breath, around 3 AM on 08/30. Tried to make it throughout the day, but was short of breath with very minimal exertion. Her family is in healthcare, convinced her to come to the emergency department, so she presents for further evaluation. Denies chest pain, hemoptysis, nausea or vomiting, fevers or chills. She does have left lower extremity swelling and tenderness, but due to the surgery and not outside of surgical field. Related Data Home Medications Medication Instructions Recorded Confirmed estradiol 0.01% (0.1 mg/gram) 1 applic vaginal DAILY 08/28/23 08/30/23 vaginal cream levothyroxine 75 mcg tablet 75 mcg PO DAILY Thyroid 08/28/23 08/30/23 omeprazole 20 mg capsule,delayed 20 mg PO DAILY Acid Reflux 08/28/23 08/30/23 release pravastatin 40 mg tablet 40 mg PO DAILY Cholesterol 08/28/23 08/30/23 Previous Rx's Medication Instructions Recorded citalopram 20 mg tablet (Celexa) 20 mg PO DAILY Depression #90 tabs 01/03/23 aspirin 325 mg capsule 325 mg PO BID #60 caps 08/29/23 oxycodone-acetaminophen 5 mg-325 1 tab PO Q6H PRN post op pain #40 08/29/23 mg tablet tabs Allergies Allergy/AdvReac Type Severity Reaction Status Date / Time No Known Allergies Allergy Verified 08/28/23 06:30 [facility] Disclaimer: The information contained in this section may have been updated after the patient was seen, as this information can be updated by other users. Medical History Abnormal electrocardiogram [ECG] [EKG] Acute bronchitis Bronchitis Cancer Contusion of hip Cough Encounter for pre-operative cardiovascular clearance Fall History of colon cancer History of gastroesophageal reflux (GERD) History of hyperlipidemia History of stroke Leukocytosis Low back pain Muscle spasm Piriformis syndrome of right side Right hip pain Right thigh pain Sinusitis URI (upper respiratory infection) UTI (urinary tract infection) Surgical History H/O partial thyroidectomy History of repair of atrial septal defect Family History Other No significant family history Social History Smoking Status: Never smoker second hand exposure: No alcohol intake: never substance use type: denies use current occupational status: employed and other Travel in the last 8 weeks: None household members: family housing: house current occupational exposures/hazards: No caffeine: Yes ROS Obtained: Yes All systems reviewed & no additional complaints except as documented Physical Exam General General appearance: alert and in no apparent distress Head Head exam: atraumatic and normocephalic Eye Eye exam: Present normal appearance, PERRL and EOMI ENT ENT exam: Present mucous membranes moist Neck Neck exam: Present normal inspection, full ROM and trachea midline Chest Chest inspection: Present normal inspection and symmetric chest wall rise Respiratory Respiratory exam: Present normal lung sounds bilaterally and other (90% on room air at rest, 3 L nasal cannula up to 95%); Absent respiratory distress, wheezes, stridor, accessory muscle use or prolonged expiratory phase Cardiovascular Cardiovascular exam: Present regular rate and normal rhythm Abdominal Exam Abdominal exam: Present soft; Absent distention, tenderness, guarding, rebound or rigidity Extremities Exam Extremities exam: Present tenderness, edema and other (Swelling, erythema, tenderness left lower extremity about surgical site. Also has fusiform left lower extremity swelling as compared to right. Posterior tibial pulse intact. No tenderness with range of motion) Neurological Exam Neurological exam: Present alert, oriented X3, CN II-XII intact and normal gait; Absent motor sensory deficit Skin Skin exam: Present warm and dry; Absent diaphoresis or erythema HEART Score HEART Score HEART Score assessment performed?: Yes History (anamnesis): Moderately suspicious ECG: Normal Age: >65 years Risk factors: 3 or more risk factors Troponin: 1-3x normal limit HEART Score: 6 Critical Care Critical Care Time Critical Care Time: Yes (CV) Attestation: On 08/30/23, the high probability of a clinically significant, sudden or life threatening deterioration of the following system(s) required my full and direct attention, intervention and personal management. The time I documented below is in addition to time spent performing reported procedures but includes the following listed in this critical care notation. Total Time Total Critical Care Time: 45 Medical Decision Making Medical Records Medical records reviewed: Yes I reviewed the patient's medical records. [place] Inquiry Pt receiving controlled substance: No [place] was queried for this patient: No Vital Signs Vital Signs: 08/30/23 21:54 08/30/23 23:03 Temperature 98.7 F Temperature Source Oral Pulse Rate 89 Pulse Rate [Left] 92 H Respiratory Rate 22 Blood Pressure 173/91 H Blood Pressure [Right Arm] 153/73 H Blood Pressure Mean [Right Arm] 99 Blood Pressure Source [Right Arm] Automatic Cuff Blood Pressure Position [Right Arm] Sitting 02 Sat by Pulse Oximetry 94 L 96 Oxygen Delivery Method Nasal Cannula Oxygen Flow Rate (LPM) 2 2 Lab Data Labs: Lab Results 08/30/23 22:10: WBC 11.6 H D, RBC 3.74 L, Hgb 11.8 L, Hct 36.8 L, MCV 98.3, MCH 31.7 H, MCHC 32.2, RDW 12.7, Plt Count 260, MPV 7.7, Neut % (Auto) 77.7, Lymph % (Auto) 15.3, Pettis % (Auto) 5.7, Eos % (Auto) 0.9, Baso % (Auto) 0.4, Neut # (Auto) 9.0 H, Lymph # (Auto) 1.8, Pettis # (Auto) 0.7, Eos # (Auto) 0.1, Baso # (Auto) 0.0, PT 10.0 L, INR 0.92, APTT 28.2, Sodium 137, Potassium 4.2, Chloride 101, Carbon Dioxide 34 H, Anion Gap 6.2, BUN 12, Creatinine 0.70, Estimated Creat Clear 56, Estimated GFR 80, Est GFR ( Amer) 97, Glucose 99, Calcium 9.2, Total Bilirubin 0.7, AST 31, ALT 19, Alkaline Phosphatase 83, Troponin I 0.06 H, NT-Pro-B Natriuret Pep 733 H, Total Protein 6.5, Albumin 3.4 L, Globulin 3.1, Albumin/Globulin Ratio 1.1 08/30/23 22:20: VBG pH 7.31, VBG pCO2 56.9 H, VBG pO2 30.7, VBG HCO3 27.9, VBG Total CO2 29.6 H, VBG O2 Saturation 60.9, VBG Base Excess 1.6 08/30/23 22:10 08/30/23 22:10 Response Orders (Tests/Meds): ED MEDICATIONS Generic Name Dose Route Start Last Admin Trade Name Freq PRN Reason Stop Dose Admin Sodium Chloride 10 ml 08/30/23 22:41 08/30/23 22:42 Sodium Chloride 0.9% 10ml Syr (Rad Only) IV 09/29/23 22:40 10 ml NEEDED PRN Administration Maintain IV Site Discontinued Medications Generic Name Dose Route Start Last Admin Trade Name Freq PRN Reason Stop Dose Admin Heparin Sodium (Porcine) 5,000 unit 08/30/23 22:55 08/30/23 23:03 Heparin Sodium 5,000 Unit/Ml Vial IV 08/30/23 22:56 5,000 unit ONCE ONE Administration Iopamidol 75 ml 08/30/23 22:41 08/30/23 22:42 Iopamidol-370 (76%);100ml Bottle IV 08/30/23 22:42 75 ml ONCE ONE Administration ORDERS Category Date Time Status CT angio chest PE protocol Stat Cat Scan 08/30/23 22:17 Taken CXR --portable [XR chest portable] Stat Exams 08/30/23 22:20 Completed Brain Natriuretic Peptide Stat Lab 08/30/23 22:10 Completed CBC w/Auto Diff [Complete Blood Count Auto Diff] Stat Lab 08/30/23 22:10 Completed CMP [Comprehensive Metabolic Panel] Stat Lab 08/30/23 22:10 Completed Heparin drip PTT [PTT Heparin (inpatient only)] Stat Lab 08/30/23 22:10 Completed INR [Prothrombin Time INR] Stat Lab 08/30/23 22:10 Completed PTT [Activated Partial Thrombo Time] Stat Lab 08/30/23 22:10 Completed Trop I [Troponin I] Stat Lab 08/30/23 22:10 Completed Troponin I Q3H Lab 08/31/23 01:30 Ordered Troponin I Q3H Lab 08/31/23 04:30 Ordered VBG [Venous Blood Gas] Stat RT 08/30/23 22:20 Completed MDM Narrative Medical Decision Narrative: 83-year-old female history of hypertension, hyperlipidemia, diabetes, recent left knee replacement on 08/28 presenting with short of breath states she was all of a sudden hit with shortness of breath, around 3 AM on 08/30. Tried to make it throughout the day, but was short of breath with very minimal exertion. Her family is in healthcare, convinced her to come to the emergency department, so she presents for further evaluation. Denies chest pain, hemoptysis, nausea or vomiting, fevers or chills. She does have left lower extremity swelling and tenderness, but due to the surgery and not outside of surgical field. History was obtained via conversation with patient and family. On arrival, patient hemodynamically stable, alert, oriented x4, appropriate, GCS 15, moving all extremities spontaneously, pupils equal and reactive to light. Full physical exam performed and significant for hypoxic patient who is in no acute distress. 90% on room air. Put on 3 L to saturate 95%. Cardiopulmonary exam otherwise within normal limits. Patient does have left lower extremity swelling as compared to right it is red, fusiformly swollen, nonpitting, but largely nontender outside of postsurgical site. Pulses intact, neurovascularly intact. No range of motion difficulties other than pain with manipulation of knee. Differential includes PE, pneumothorax, pneumonia, among others. Patient was given Heparin bolus and drip, supplemental oxygen for symptomatic management and correction of underlying abnormalities. Workup independently interpreted and significant for troponin elevated at 0.06, BNP mildly elevated at 730. Nonactionable, VBG nonactionable. Coags nonactionable. Patient has mild leukocytosis 11.6, but she is also postop. CT angio of the chest PE protocol demonstrated multiple bilateral subsegmental PEs. Right heart to left heart ratio 0.9-1. See radiology read for full review of final results. Independent interpretation of EKG shows sinus rhythm 88 beats a minute with no ST or T wave changes concerning for acute ischemia. Incomplete bundle branch block. Heart score. 6 On reevaluation, patient started on heparin bolus and drip. Hospital medicine was contacted for evaluation for admission for anticoagulation and case was discussed at length. Given patient presentation, workup, history, this most likely represents provoked, postop DVT and PE with mild right heart strain, but no hemodynamic compromise. Because patient high risk for clinical decompensation, deemed appropriate for inpatient admission. Results were relayed to patient who voiced understanding and patient was agreeable to inpatient admission and management. Patient was admitted to the hospital for further definitive management.
--- NOTE | 2023-08-30 23:52 | EXP.HP ---
History of Present Illness *Admission Date: 08/30/23 *Reason for visit:: SOB *History of present illness: This is a 83-year-old female history of hypertension, hyperlipidemia, diabetes, recent left knee replacement on 08/28 presenting with short of breath stated she was all of a sudden hit with shortness of breath, around 3 AM on 08/30. Tried to make it throughout the day, but was short of breath with very minimal exertion. Her family is in healthcare, convinced her to come to the emergency department, so she presents for further evaluation. Denies chest pain, hemoptysis, nausea or vomiting, fevers or chills. She does have left lower extremity swelling and tenderness, but due to the surgery and not outside of surgical field. Admitted for treatment and management [facility] Disclaimer: The information contained in this section may have been updated after the patient was seen, as this information can be updated by other users. Medical History (Updated 08/31/23 @ 12:20 by NICOLÁS Mendoza) Abnormal electrocardiogram [ECG] [EKG] Acute bronchitis Acute respiratory failure with hypoxia Bilateral pulmonary embolism Bronchitis Cancer Contusion of hip Cough Encounter for pre-operative cardiovascular clearance Fall History of colon cancer History of gastroesophageal reflux (GERD) History of hyperlipidemia History of stroke Leukocytosis Low back pain Muscle spasm Piriformis syndrome of right side Right hip pain Right thigh pain Sinusitis URI (upper respiratory infection) UTI (urinary tract infection) Surgical History (Updated 08/31/23 @ 01:54 by Heraclio Miller APRN) H/O partial thyroidectomy History of repair of atrial septal defect Total knee replacement status Family History Other No significant family history Social History (Updated 08/31/23 @ 01:22 by Kusum Jones RN) Smoking Status: Never smoker second hand exposure: No alcohol intake: never substance use type: denies use current occupational status: employed and other Travel in the last 8 weeks: None household members: family housing: house current occupational exposures/hazards: No caffeine: Yes Review of Systems Review of Systems Review of systems:: pertinent systems reviewed and negative unless documented below Meds Home Medications and Allergies Home Medications Medication Instructions Recorded Confirmed Type citalopram 20 mg tablet (Celexa) 20 mg PO DAILY Depression #90 tabs 01/03/23 08/30/23 Rx estradiol 0.01% (0.1 mg/gram) 1 applic vaginal DAILY 08/28/23 08/30/23 History vaginal cream levothyroxine 75 mcg tablet 75 mcg PO DAILY 08/28/23 08/30/23 History omeprazole 20 mg capsule,delayed 20 mg PO DAILY 08/28/23 08/30/23 History release pravastatin 40 mg tablet 40 mg PO DAILY Cholesterol 08/28/23 08/30/23 History oxycodone-acetaminophen 5 mg-325 1 tab PO Q6H PRN post op pain #40 08/29/23 08/30/23 Rx mg tablet tabs apixaban 5 mg tablet (Eliquis) 5 mg PO BID #30 tabs 09/01/23 Rx New Prescriptions to Start Prescriptions: apixaban [Eliquis] Ngoc Arevalo Allergies Allergy/AdvReac Type Severity Reaction Status Date / Time No Known Allergies Allergy Verified 08/28/23 06:30 Exam Data for Last 24 hours Vital signs and Labs for Last 24 Hours: Temp Pulse Resp BP Pulse Ox O2 Del Method O2 Flow Rate 98.7 F 91 H 22 185/66 H 99 Nasal Cannula 2 08/30/23 21:54 08/30/23 23:30 08/30/23 21:54 08/30/23 23:30 08/30/23 23:30 08/30/23 21:54 08/30/23 23:03 Laboratory Results - last 24 hr 08/30/23 22:10: WBC 11.6 H D, RBC 3.74 L, Hgb 11.8 L, Hct 36.8 L, MCV 98.3, MCH 31.7 H, MCHC 32.2, RDW 12.7, Plt Count 260, MPV 7.7, Neut % (Auto) 77.7, Lymph % (Auto) 15.3, [place] % (Auto) 5.7, Eos % (Auto) 0.9, Baso % (Auto) 0.4, Neut # (Auto) 9.0 H, Lymph # (Auto) 1.8, [place] # (Auto) 0.7, Eos # (Auto) 0.1, Baso # (Auto) 0.0, PT 10.0 L, INR 0.92, APTT 28.2, Sodium 137, Potassium 4.2, Chloride 101, Carbon Dioxide 34 H, Anion Gap 6.2, BUN 12, Creatinine 0.70, Estimated Creat Clear 56, Estimated GFR 80, Est GFR ( Amer) 97, Glucose 99, Calcium 9.2, Total Bilirubin 0.7, AST 31, ALT 19, Alkaline Phosphatase 83, Troponin I 0.06 H, NT-Pro-B Natriuret Pep 733 H, Total Protein 6.5, Albumin 3.4 L, Globulin 3.1, Albumin/Globulin Ratio 1.1 08/30/23 22:20: VBG pH 7.31, VBG pCO2 56.9 H, VBG pO2 30.7, VBG HCO3 27.9, VBG Total CO2 29.6 H, VBG O2 Saturation 60.9, VBG Base Excess 1.6 I & O for Last 24 hours: Intake & Output 08/27/23 08/28/23 08/29/23 08/30/23 23:59 23:59 23:59 23:59 Weight 80.739 kg *Routine HEENT Exam Head: Present normocephalic and atraumatic Eye: Present PERRL ENT: Present mucous membranes moist *Routine Neck Exam Neck: Present supple *Routine Respiratory Exam Respiratory: Absent accessory muscle use or decreased breath sounds *Routine Cardiovascular Exam Cardiovascular: Present RRR *Routine Abdominal Exam Abdominal: Absent tenderness *Routine Rectal Exam Rectal:: deferred *Routine Genitalia Exam Genitalia:: deferred *Routine Extremities Exam Comments: Skin intact dressing intact left knee. *Routine Skin Exam Comments: Benign surgical wound *Routine Neurological Exam Neurological: Present alert and oriented X3 Additional Findings:: X-rays left knee postoperatively reveal total knee arthroplasty implants in good alignment good position H&P: Result Imaging and Cardiology EKG: Status: image reviewed by me and Preliminary report CT scan - chest: Status: image reviewed by me and Preliminary report Assessment and Plan *Assessment and plan (1) Pulmonary emboli: Status: Acute Qualifiers: Acute cor pulmonale presence: with acute cor pulmonale Chronicity: acute Pulmonary embolism type: other Qualified Code(s): I26.09 - Other pulmonary embolism with acute cor pulmonale Category: Medical Code(s): I26.99 - Other pulmonary embolism without acute cor pulmonale (2) Status post knee replacement: Status: Acute Qualifiers: Laterality: left Qualified Code(s): Z96.652 - Presence of left artificial knee joint Category: Surgical Code(s): Z96.659 - Presence of unspecified artificial knee joint (3) History of repair of atrial septal defect: Status: Acute Category: Surgical Code(s): Z87.74 - Personal history of (corrected) congenital malformations of heart and circulatory system (4) Diabetes mellitus, type 2: Status: Acute Qualifiers: Diabetes mellitus complication status: without complication Diabetes mellitus care home insulin use: without termite treater helper use Qualified Code(s): E11.9 - Type 2 diabetes mellitus without complications Category: Medical Code(s): E11.9 - Type 2 diabetes mellitus without complications Plan 83-year-old female history of hypertension, hyperlipidemia, diabetes, recent left knee replacement on 08/28 presenting with short of breath stated she was all of a sudden hit with shortness of breath, around 3 AM on 08/30. on arrival labs are significant for troponin elevated at 0.06, BNP mildly elevated at 730. Patient has mild leukocytosis 11.6, suspected reactive post op. CT angio of the chest PE protocol demonstrated multiple bilateral subsegmental PEs. Right heart to left heart ratio 0.9-1. final reading pending. See radiology read for full review of final results. Independent interpretation of EKG shows sinus rhythm 88 beats a minute with no ST or T wave changes concerning for acute ischemia. Incomplete bundle branch block. Findings discussed with ER for admission. Plan as follow: -Multiple PEs, right side strain not excluded: Admit patient. Step down Started and continue heparin infusion. Patient hemodynamically stable currently on room air Continue monitor. Vital signs per unit per Pulmonology consult Pulmonary to monitor and adjust heparin PTT every 6 -Status post first left knee replacement: PT OT consult for eval and treatment Dressing in place. Clean dry and intact Pain management with hydrocodone and Tylenol as needed History of repair anteroseptal defect: Patient has a history of previous stroke was initially on anticoagulant patient is that the blood thinner was stopped by cardiology. Continue monitor for long-term anticoagulation History of type 2 diabetes: Blood sugar monitor before meals and not on any current medical On heparin drip. On Protonix Full code Attending attestation Patient was seen and evaluated at the bedside myself, agree with EVIE note.
[2023-08-31] VITALS (13 sets, daily range): BP systolic 106–168; BP diastolic 54–75; PULSE 75–90; RESP 16–21; TEMP 36.5–37.3; O2SAT 94–98; BMI 29.7
--- NOTE | 2023-08-31 00:06 | PC.NURSE ---
Spoke with Bob, pharmacist to dose heparin gtt
[2023-08-31] MEDS: HEPARIN 25,000 UNITS/D5W 500 ML 28 UNIT IV (00:21)
[2023-08-31] MEDS: HEPARIN DRIP CONSULT 1 EACH * (00:40)
--- NOTE | 2023-08-31 00:52 | PC.NURSE ---
pt arrived to the floor @00:47
[2023-08-31] MEDS: 0.9 % SODIUM CHLORIDE 1000ML 1,000 ML 50 ML IV ×2 (01:31→18:31)
[2023-08-31] MEDS: MORPHINE 2MG/ML SYRINGE 2 MG IV (01:32)
[2023-08-31 02:56] LABS: Troponin I 0.08 ng/ml (0.00-0.034)
--- NOTE | 2023-08-31 03:05 | PC.NURSE ---
spoke with vivi from [facility] at this time. PTT 84.0. Vivi states this is within range. no change at this time. She will enter in next ptt draw fpr 0600.
[2023-08-31 06:34] LABS: Basophils # 0.1 K/mm3 (0-0.2); Basophils % 0.5 % (0.1-2.0); Eosinophils # 0.3 K/mm3 (0.0-0.4); Eosinophils % 2.9 % (0.1-12.0); Hematocrit 33.1 % (37.0-47.0); Hemoglobin 10.7 g/dL (12.2-16.2); Lymphocytes # 1.9 K/mm3 (0.7-4.5); Lymphocytes % 21.6 % (10-50); Mean Corpuscular HGB Conc 32.3 g/dL (31.8-35.4); Mean Corpuscular Hemoglobin 31.5 pg (27.0-31.2); Mean Corpuscular Volume 97.5 fl (81-99); Mean Platelet Volume 8.1 fl (7.4-10.4); Monocytes # 0.6 K/mm3 (0.1-1.0); Monocytes % 6.6 % (1.7-9.3); Neutrophils # 5.9 K/mm3 (1.8-7.8); Neutrophils % 68.5 % (37.0-80.0); Platelet Count 240 K/mm3 (142-424); Red Cell Distribution Width 12.7 % (11.5-17.5); White Blood Count 8.6 K/mm3 (4.8-10.8)
[2023-08-31 06:39] LABS: Chloride 105 mmol/L (98-107); Potassium 3.7 mmoL/L (3.5-5.1); Sodium 136 mmol/L (136-145)
[2023-08-31 06:41] LABS: Alanine Aminotransferase 16 U/L (12-78); Aspartate Amino Transferase 27 U/L (14-36); Blood Urea Nitrogen 13 mg/dl (7-17); Creatinine Clearance Estimated 58 mL/min (50-200); Estimated Glomerular Filt Rate 69 ml/min (>60); GFR (African American) 83 ML/MIN (>60)
[2023-08-31 06:42] LABS: Albumin Level 2.8 g/dl (3.5-5.0); Alkaline Phosphatase 69 U/L (38-126); Anion Gap 4.7 mEq/L (5-15); Bilirubin,Total 0.5 mg/dl (0.2-1.3); Calcium 8.2 mg/dl (8.4-10.2); Carbon Dioxide 30 mmol/L (22.0-30.0); Globulin 2.7 g/dL (1.3-3.2); Glucose 118 mg/dl (74-100); Magnesium 1.9 mg/dl (1.6-2.3); Total Protein,Serum 5.5 g/dl (6.3-8.2)
--- NOTE | 2023-08-31 06:47 | PC.NURSE ---
Spoke with Vivi from [facility]
[2023-08-31 06:54] LABS: Troponin I 0.05 ng/ml (0.00-0.034)
[2023-08-31 07:27] LABS: PTT Heparin (inpatient only) 92.9 Seconds (23.6-34.0)
--- NOTE | 2023-08-31 07:31 | CA_ITS ---
APPROVED REPORT EXAM: Comprehensive 2D, Doppler, and color-flow Echocardiogram Rigging Engineer: Kayley Hameed, RT(R) Ht: 5 ft 6 in Wt: 184lbs BSA: 1.93 BP: 185/66 mmHg Indications: PE's, SOB, HTN, DM, hyperlipidemia, CVA, ASD repair 2010, recent left knee replacement 08/28/23 2D Dimensions IVSd 0.94 cm F: 0.6-1.0 LVEF (Visual) 40.40 % PWd 0.96 cm F: 0.6 - 1.0 EF AP4 53.10 % LVDd 2.87 cm F: 3.9 - 5.3 GL Strain -19.4 % LVDs 2.33 cm F: 2.2 - 3.5 M-Mode Dimensions RVDd 2.72 cm (0.9-2.6) LVDd 2.87 cm (3.5-5.7) LVDs 2.86 cm (3.5-5.7) IVSd 0.93 cm (0.6-1.1) PWd 0.93 cm (0.6-1.1) EF (Teich) 48.50% FS 22.20% EDV (Teich) 60.40 mL ESV (Teich) 31.10 mL LV Diastology E Decel Time 275 (160-240 msec) E/A Ratio 0.9 MED E' 11.5 (>= 7 cm/sec) E'/MED E' Ratio 6.98 (<= 14) LAT E' 12.8 (>= 10 cm/sec) E/LAT E' Ratio 6.27 (<= 14) Mitral Valve MV E Max Jacob. 80.0 (40-130 cm/s) MV A Velocity 90.0 (40-130 cm/s) E/A Ratio 0.89 MV Decel. Time 275 (160-240 ms) Tricuspid Valve TR P. Velocity 257.00 cm/s RAP Estimate 10.00 mmHg RVSP 36.50 mmHg Left Ventricle The left ventricle is normal size. The left ventricular systolic function is normal. The left ventricular ejection fraction is within the normal range. There is increased LV wall thickness. There is normal LV segmental wall motion. The left ventricular diastolic function is normal. LVEF is 60%. Right Ventricle Right ventricle is mildly dilated. The right ventricular systolic function is normal. Atria The left atrium size is normal. The right atrium size is normal. The interatrial septum is not well visualized. Aortic Valve The aortic valve is mildly thickened There is no aortic valvular stenosis. Trace aortic regurgitation. Mitral Valve The mitral valve leaflets are mildly thickened. No evidence of mitral valve stenosis. Trace mitral regurgitation. Tricuspid Valve The tricuspid valve leaflets are thin and pliable. Trace tricuspid regurgitation. There is insufficient TR jet to estimate RVSP. Pulmonic Valve The pulmonary valve is normal in structure. Trace pulmonic regurgitation. Great Vessels The aortic root is not well visualized. The IVC is not well visualized. Pericardium There is no pericardial effusion. Other Information Study Quality: Technically Difficult Conclusion Technically difficult study due to poor accoustic windows. Normal LV systolic function. Mild RV dilation with normal RV function. No significant valvular stenosis or regurgitation. Electronically signed by : Eloise Zaldivar MD 09/01/2023 15:41:29
[2023-08-31] MEDS: HEPARIN 25,000 UNITS/D5W 500 ML 24 UNIT IV (07:33)
[2023-08-31] MEDS: ONDANSETRON 4MG/2ML VIAL 4 MG IV (07:54)
--- NOTE | 2023-08-31 07:55 | HMH.PHAINT1 ---
Pharmacy Intervention Comments: VERIFIED HOME MEDICATION LIST WITH LIST FROM DISCHARGE ON 08/29/23
--- NOTE | 2023-08-31 08:01 | P.CONPHA_ITS ---
[facility] Pharmacy Heparin Dosing Demographic Data Admission date:: 08/30/23 Date: 08/31/23 Time: 08:01 Allergies Allergy/AdvReac Type Severity Reaction Status Date / Time No Known Allergies Allergy Verified 08/28/23 06:30 Height: 1.68 m Weight: 83 kg Indication Medication therapy:: Heparin Current Indications:: PE Current Active Problems (Updated 08/31/23 @ 01:54 by Heraclio Miller APRN) Elevated brain natriuretic peptide (BNP) level (Acute) Elevated troponin (Acute) Bilateral pulmonary embolism (Acute) Acute respiratory failure with hypoxia (Acute) Status post knee replacement (Acute) Diabetes mellitus, type 2 (Acute) Hyperlipidemia (Acute) Pulmonary emboli (Acute) Acute hypoxemic respiratory failure (Acute) History of repair of atrial septal defect (Acute) CVA?: No Bleeding problem?: No Kidney disease?: No [place]?: No Desired PTT range:: 50-75 seconds Labs Anticoagulation Lab Results:: 08/30/23 08/31/23 22:10 06:22 Hgb 11.8 L 10.7 L Hct 36.8 L 33.1 L Plt Count 260 240 Monitoring Dose Monitor 1: Date: 08/30/23 Time: 22:10 PTT Result:: 28.2 Infusion Rate:: HEPARIN STARTED OVERNIGHT AT 28 ML/HR (1400 UNITS/HR) WITH BOLUS OF 5000 UNITS Dose Monitor 2: Date: 08/31/23 Time: 02:13 PTT Result:: 84.0 Infusion Rate:: HEPARIN WAS CONTINUED AT 28 ML/HR (1400 UNITS/HR) Dose Monitor 3: Date: 08/31/23 Time: 06:22 PTT Result:: 92.9 Infusion Rate:: HEPARIN RATE DECREASED TO 24 ML/HR (1200 UNITS/HR) Dose Monitor 4: Date: 08/31/23 Time: 12:12 PTT Result:: 77.2 Infusion Rate:: PATIENT PTT DECREASED WELL FROM 92.9 TO 77.2. DECREASE HEPARIN DRIP TO 23 ML/HR (1150 ML/HR). WILL RECHECK ABOUT 1800 TONIGHT. Core Measures Is INR > or = 2 at discharge?: No Most Recent Labs:: Laboratory Results - last 24 hr 08/30/23 22:10: WBC 11.6 H D, RBC 3.74 L, Hgb 11.8 L, Hct 36.8 L, MCV 98.3, MCH 31.7 H, MCHC 32.2, RDW 12.7, Plt Count 260, MPV 7.7, Neut % (Auto) 77.7, Lymph % (Auto) 15.3, [place] % (Auto) 5.7, Eos % (Auto) 0.9, Baso % (Auto) 0.4, Neut # (Auto) 9.0 H, Lymph # (Auto) 1.8, [place] # (Auto) 0.7, Eos # (Auto) 0.1, Baso # (Auto) 0.0, PT 10.0 L, INR 0.92, APTT 28.2, Sodium 137, Potassium 4.2, Chloride 101, Carbon Dioxide 34 H, Anion Gap 6.2, BUN 12, Creatinine 0.70, Estimated Creat Clear 56, Estimated GFR 80, Est GFR ( Amer) 97, Glucose 99, Calcium 9.2, Total Bilirubin 0.7, AST 31, ALT 19, Alkaline Phosphatase 83, Troponin I 0.06 H, NT-Pro-B Natriuret Pep 733 H, Total Protein 6.5, Albumin 3.4 L, Globulin 3.1, Albumin/Globulin Ratio 1.1 08/30/23 22:20: VBG pH 7.31, VBG pCO2 56.9 H, VBG pO2 30.7, VBG HCO3 27.9, VBG Total CO2 29.6 H, VBG O2 Saturation 60.9, VBG Base Excess 1.6 08/31/23 02:13: APTT 84.0 H*, Troponin I 0.08 H 08/31/23 06:22: WBC 8.6 D, RBC 3.40 L, Hgb 10.7 L, Hct 33.1 L, MCV 97.5, MCH 31.5 H, MCHC 32.3, RDW 12.7, Plt Count 240, MPV 8.1, Neut % (Auto) 68.5, Lymph % (Auto) 21.6, [place] % (Auto) 6.6, Eos % (Auto) 2.9, Baso % (Auto) 0.5, Neut # (Auto) 5.9, Lymph # (Auto) 1.9, [place] # (Auto) 0.6, Eos # (Auto) 0.3, Baso # (Auto) 0.1, APTT 92.9 H*, Sodium 136, Potassium 3.7, Chloride 105, Carbon Dioxide 30, Anion Gap 4.7 L, BUN 13, Creatinine 0.80, Estimated Creat Clear 58, Estimated GFR 69, Est GFR ( Amer) 83, Glucose 118 H, Calcium 8.2 L, Magnesium 1.9, Total Bilirubin 0.5, AST 27, ALT 16, Alkaline Phosphatase 69, Troponin I 0.05 H, Total Protein 5.5 L, Albumin 2.8 L D, Globulin 2.7, Albumin/Globulin Ratio 1.0 L If INR was < than 2.0 why was therapy stopped?: Xarelto started Were Heparin and Warfarin started on the same day?: No If not, why?: Xarelto started
[2023-08-31] MEDS: OXYCODONE 5MG W/APAP 325MG TABLET 1 EACH PO ×2 (08:44→20:33)
--- NOTE | 2023-08-31 10:03 | P.CONS_ITS ---
History of Present Illness History of present illness: Ms. Brink is a 83-year-old female no significant smoking history, no baseline respiratory complaints not using any inhalers or oxygen at baseline with reported history hypertension, dyslipidemia and diabetes mellitus, recent knee replacement 08/28/2021 presented with worsening shortness of breath sudden onset followed by CTA that noted a bilateral pulmonary embolism and pulmonary was called for further evaluation and management. [facility] Disclaimer: The information contained in this section may have been updated after the patient was seen, as this information can be updated by other users. Medical History (Updated 08/31/23 @ 11:38 by Karri Humphrey MD) Abnormal electrocardiogram [ECG] [EKG] Acute bronchitis Acute respiratory failure with hypoxia Bilateral pulmonary embolism Bronchitis Cancer Contusion of hip Cough Encounter for pre-operative cardiovascular clearance Fall History of colon cancer History of gastroesophageal reflux (GERD) History of hyperlipidemia History of stroke Leukocytosis Low back pain Muscle spasm Piriformis syndrome of right side Right hip pain Right thigh pain Sinusitis URI (upper respiratory infection) UTI (urinary tract infection) Surgical History (Updated 08/31/23 @ 01:54 by Heraclio Miller APRN) H/O partial thyroidectomy History of repair of atrial septal defect Total knee replacement status Family History Other No significant family history Social History (Updated 08/31/23 @ 01:22 by Kusum Jones RN) Smoking Status: Never smoker second hand exposure: No alcohol intake: never substance use type: denies use current occupational status: employed and other Travel in the last 8 weeks: None household members: family housing: house current occupational exposures/hazards: No caffeine: Yes Review of Systems Constitutional Constitutional: Reports anorexia, Reports body ache(s) and Reports fatigue Eyes Eyes: Denies eye discharge, Denies dry eyes, Denies irritation and Denies itchy eyes ENT Ears, Nose, Mouth, and Throat: Denies epistaxis, Denies facial pain, Denies lip swelling and Denies throat swelling *Cardiovascular Cardiovascular: Reports dyspnea and Reports dyspnea on exertion *Respiratory Respiratory: Denies chest congestion, Denies cough, Reports dyspnea, Reports dyspnea on exertion, Denies excessive phlegm production, Denies hemoptysis, Denies pain on inspiration, Denies pain with cough and Denies wheezing *Gastrointestinal Gastrointestinal: Denies abdominal pain, Denies belching and Denies cramping *Musculoskeletal Musculoskeletal: Reports back pain, Reports myalgias and Reports other (No small joint swelling or Pain) Psychiatric Psychiatric: Denies homicidal ideation and Denies suicidal ideation Endocrine Endocrine: Reports fatigue and Denies heat intolerance Hematologic/Lymphatic Hematologic/Lymphatic: Denies easy bleeding and Denies lymphadenopathy Allergic/Immunologic Allergic/Immunologic: Denies itchy eyes, Denies lip swelling, Denies throat swelling and Denies wheezing Pulmonology Exam Inpatient Vital signs and Labs for Last 24 Hours: Temp Pulse Resp BP Pulse Ox O2 Del Method O2 Flow Rate 97.9 F 80 20 133/58 L 95 Nasal Cannula 1 08/31/23 08:00 08/31/23 08:00 08/31/23 08:00 08/31/23 08:00 08/31/23 08:00 08/31/23 09:10 08/31/23 09:10 Laboratory Results - last 24 hr 08/30/23 22:10: WBC 11.6 H D, RBC 3.74 L, Hgb 11.8 L, Hct 36.8 L, MCV 98.3, MCH 31.7 H, MCHC 32.2, RDW 12.7, Plt Count 260, MPV 7.7, Neut % (Auto) 77.7, Lymph % (Auto) 15.3, [place] % (Auto) 5.7, Eos % (Auto) 0.9, Baso % (Auto) 0.4, Neut # (Auto) 9.0 H, Lymph # (Auto) 1.8, [place] # (Auto) 0.7, Eos # (Auto) 0.1, Baso # (Auto) 0.0, PT 10.0 L, INR 0.92, APTT 28.2, Sodium 137, Potassium 4.2, Chloride 101, Carbon Dioxide 34 H, Anion Gap 6.2, BUN 12, Creatinine 0.70, Estimated Creat Clear 56, Estimated GFR 80, Est GFR ( Amer) 97, Glucose 99, Calcium 9.2, Total Bilirubin 0.7, AST 31, ALT 19, Alkaline Phosphatase 83, Troponin I 0.06 H, NT-Pro-B Natriuret Pep 733 H, Total Protein 6.5, Albumin 3.4 L, Globulin 3.1, Albumin/Globulin Ratio 1.1 08/30/23 22:20: VBG pH 7.31, VBG pCO2 56.9 H, VBG pO2 30.7, VBG HCO3 27.9, VBG Total CO2 29.6 H, VBG O2 Saturation 60.9, VBG Base Excess 1.6 08/31/23 02:13: APTT 84.0 H*, Troponin I 0.08 H 08/31/23 06:22: WBC 8.6 D, RBC 3.40 L, Hgb 10.7 L, Hct 33.1 L, MCV 97.5, MCH 31.5 H, MCHC 32.3, RDW 12.7, Plt Count 240, MPV 8.1, Neut % (Auto) 68.5, Lymph % (Auto) 21.6, [place] % (Auto) 6.6, Eos % (Auto) 2.9, Baso % (Auto) 0.5, Neut # (Auto) 5.9, Lymph # (Auto) 1.9, [place] # (Auto) 0.6, Eos # (Auto) 0.3, Baso # (Auto) 0.1, APTT 92.9 H*, Sodium 136, Potassium 3.7, Chloride 105, Carbon Dioxide 30, Anion Gap 4.7 L, BUN 13, Creatinine 0.80, Estimated Creat Clear 58, Estimated GFR 69, Est GFR ( Amer) 83, Glucose 118 H, Calcium 8.2 L, Magnesium 1.9, Total Bilirubin 0.5, AST 27, ALT 16, Alkaline Phosphatase 69, Troponin I 0.05 H, Total Protein 5.5 L, Albumin 2.8 L D, Globulin 2.7, Albumin/Globulin Ratio 1.0 L I & O for Labs for Last 24 Hours: Intake & Output 08/28/23 08/29/23 08/30/23 08/31/23 23:59 23:59 23:59 23:59 Intake Total 505 / 505 Output Total 0 / 0 Balance 505 / 505 Weight 178 lb 182 lb 15.739 oz Constitutional: Present moderate distress Head: Present normocephalic and atraumatic ENT: Present normal exam, normal oropharynx and mucous membranes moist Neck: Present normal inspection and full ROM Respiratory: Present CTA bilaterally, respiratory distress and able to speak in complete sentences; Absent prolonged expiratory phase, wheezes, crackles or diminished air movement Cardiac: Present S1/S2, Tachycardia and radial pulses present GI: Present soft and distention; Absent tenderness or guarding Rectal (female): Present deferred (female): Present deferred Skin: Present intact; Absent cyanosis or jaundice Neuro: Present alert, awake and oriented x 3 Extremities: Present normal inspection; Absent clubbing or cyanosis Psychiatric: Present normal affect and cooperative Meds Home Medications and Allergies Home Medications Medication Instructions Recorded Confirmed Type citalopram 20 mg tablet (Celexa) 20 mg PO DAILY Depression #90 tabs 01/03/23 08/30/23 Rx estradiol 0.01% (0.1 mg/gram) 1 applic vaginal DAILY 08/28/23 08/30/23 History vaginal cream levothyroxine 75 mcg tablet 75 mcg PO DAILY 08/28/23 08/30/23 History omeprazole 20 mg capsule,delayed 20 mg PO DAILY 08/28/23 08/30/23 History release pravastatin 40 mg tablet 40 mg PO DAILY Cholesterol 08/28/23 08/30/23 History aspirin 325 mg capsule 325 mg PO BID #60 caps 08/29/23 08/30/23 Rx oxycodone-acetaminophen 5 mg-325 1 tab PO Q6H PRN post op pain #40 08/29/23 08/30/23 Rx mg tablet tabs New Prescriptions to Start Prescriptions: Allergies Allergy/AdvReac Type Severity Reaction Status Date / Time No Known Allergies Allergy Verified 08/28/23 06:30 Results Laboratory Findings 08/31/23 06:22 08/31/23 06:22 PT/INR, D-dimer PT 10.0 seconds (10.1-12.5) L 08/30/23 22:10 INR 0.92 (0.9-1.1) 08/30/23 22:10 Abnormal lab findings: Abnormal Labs 08/30/23 08/30/23 08/31/23 22:10 22:20 02:13 WBC 11.6 H D RBC 3.74 L Hgb 11.8 L Hct 36.8 L MCH 31.7 H Neut # (Auto) 9.0 H PT 10.0 L APTT 84.0 H* VBG pCO2 56.9 H VBG Total CO2 29.6 H Carbon Dioxide 34 H Anion Gap Glucose Calcium Troponin I 0.06 H 0.08 H NT-Pro-B Natriuret Pep 733 H Total Protein Albumin 3.4 L Albumin/Globulin Ratio 08/31/23 06:22 WBC RBC 3.40 L Hgb 10.7 L Hct 33.1 L MCH 31.5 H Neut # (Auto) PT APTT 92.9 H* VBG pCO2 VBG Total CO2 Carbon Dioxide Anion Gap 4.7 L Glucose 118 H Calcium 8.2 L Troponin I 0.05 H NT-Pro-B Natriuret Pep Total Protein 5.5 L Albumin 2.8 L D Albumin/Globulin Ratio 1.0 L Assessment and Plan *Assessment and plan (1) Acute respiratory failure with hypoxia: Status: Acute Category: Medical Code(s): J96.01 - Acute respiratory failure with hypoxia (2) Bilateral pulmonary embolism: Status: Acute Category: Medical Code(s): I26.99 - Other pulmonary embolism without acute cor pulmonale Plan Ms. Brink is a 83-year-old female no significant smoking history, no baseline respiratory complaints not using any inhalers or oxygen at baseline with reported history hypertension, dyslipidemia and diabetes mellitus, recent knee replacement 08/28/2021 presented with worsening shortness of breath sudden onset followed by CTA that noted a bilateral pulmonary embolism and pulmonary was called for further evaluation and management. CTA upon admission noted to have bilateral subsegmental pulmonary embolism. No dense consolidation/airspace disease/effusions noted. No evidence of RV strain. Troponin elevated upon admission, stable. D-dimer 1.16. On examination patient appeared to be in moderate respiratory distress. On 1 L nasal cannula saturating 95%. Plan: -Continue heparin drip, will plan to wean to apixaban pending lower extremity venous Doppler. Pulmonary embolism likely provoked secondary to recent knee surgery, needs 6 months of anticoagulation at least -DuoNebs every 6 hours on as-needed basis -Continue oxygen supplementation to maintain O2 saturation below 90% above, wean as tolerated # Thank you for involving pulmonary in this patient care. Will continue to follow
--- NOTE | 2023-08-31 10:06 | CA_ITS ---
FINAL REPORT CLINICAL HISTORY: PE, HTN, HLD, DM, left total knee replacement 08/28/22, hx ASD repair 2010. COMPARISON: None FINDINGS: Multiple transverse and longitudinal scans were performed of the femoral popliteal deep venous system, with augmentation and compression maneuvers. This exam is limited in the area around the left knee, as the patient has had recent surgery and is heavily bandaged in that area. The popliteal vein and the distal femoral vein are not well-seen in the left leg. Normal phasic flow was noted in the visualized deep venous system. No intraluminal increased echogenicity is noted to suggest thrombus. There is normal compression and augmentation of the venous structures. No abnormal venous collaterals are seen. IMPRESSION: No evidence of deep venous thrombosis of the bilateral lower extremities. Limitation of visualization surrounding the left knee as described above. Reviewed, Interpreted and Dictated by Armani Negrete MD Transcribed by Ebony Mata Authenticated and [facility]
[2023-08-31] MEDS: LEVOTHYROXINE 75 MCG PO (10:24)
[2023-08-31] MEDS: CITALOPRAM 20 MG PO (10:24)
[2023-08-31 10:39] LABS: D-Dimer 1.16 ug/mL (0.0-0.5)
--- NOTE | 2023-08-31 12:10 | EXP.CARD.CON ---
History of Present Illness History of Present Illness Consult date: 08/31/23 Requesting physician: Ngoc Arevalo Consult reason: known to you Chief complaint: Bilateral pulmonary emboli after recent knee surgery Additional Medical History:: 1. Hyperlipidemia 2. History of ASD [place] [address] Herbert 3. History of colon cancer with resection and oral chemotherapy, approximately 2008 4. Abnormal EKG with possible old anterior [place] A. Echocardiogram, 08/20/2023, technically difficult study but normal LV systolic function. Grossly normal RV function. No significant valve disease. Previous ASD repair history but unable to visualize the interatrial septum well on this study. 5. Left knee replacement, 08/28/2023 6. 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 Workup in the ER including CTA of the chest revealed evidence of multiple bilateral subsegmental pulmonary emboli with a RH to LH ratio 0.9/1. Patient was admitted for heparin therapy and further evaluation. Cardiology consulted for elevated troponins and elevated BNP. [facility] Disclaimer: The information contained in this section may have been updated after the patient was seen, as this information can be updated by other users. Medical History (Updated 08/31/23 @ 12:20 by NICOLÁS Mendoza) Abnormal electrocardiogram [ECG] [EKG] Acute bronchitis Acute respiratory failure with hypoxia Bilateral pulmonary embolism Bronchitis Cancer Contusion of hip Cough Encounter for pre-operative cardiovascular clearance Fall History of colon cancer History of gastroesophageal reflux (GERD) History of hyperlipidemia History of stroke Leukocytosis Low back pain Muscle spasm Piriformis syndrome of right side Right hip pain Right thigh pain Sinusitis URI (upper respiratory infection) UTI (urinary tract infection) Surgical History (Updated 08/31/23 @ 01:54 by Heraclio Miller APRN) H/O partial thyroidectomy History of repair of atrial septal defect Total knee replacement status Family History Other No significant family history Social History (Updated 08/31/23 @ 01:22 by Kusum Jones RN) Smoking Status: Never smoker second hand exposure: No alcohol intake: never substance use type: denies use current occupational status: employed and other Travel in the last 8 weeks: None household members: family housing: house current occupational exposures/hazards: No caffeine: Yes Review of Systems Review of Systems Review of systems:: pertinent systems reviewed and negative unless documented below *Cardiovascular Cardiovascular: Denies chest pain and Reports dyspnea *Respiratory Respiratory: Reports dyspnea *Musculoskeletal Musculoskeletal: Reports arthralgias and Reports joint swelling Exam Data for Last 24 hours Vital signs and Labs for Last 24 Hours: Temp Pulse Resp BP Pulse Ox O2 Del Method O2 Flow Rate 97.9 F 76 20 136/57 L 95 Room Air 1 08/31/23 11:56 08/31/23 11:56 08/31/23 11:56 08/31/23 11:56 08/31/23 11:56 08/31/23 11:56 08/31/23 11:00 Laboratory Results - last 24 hr 08/30/23 22:10: WBC 11.6 H D, RBC 3.74 L, Hgb 11.8 L, Hct 36.8 L, MCV 98.3, MCH 31.7 H, MCHC 32.2, RDW 12.7, Plt Count 260, MPV 7.7, Neut % (Auto) 77.7, Lymph % (Auto) 15.3, [place] % (Auto) 5.7, Eos % (Auto) 0.9, Baso % (Auto) 0.4, Neut # (Auto) 9.0 H, Lymph # (Auto) 1.8, [place] # (Auto) 0.7, Eos # (Auto) 0.1, Baso # (Auto) 0.0, PT 10.0 L, INR 0.92, APTT 28.2, Sodium 137, Potassium 4.2, Chloride 101, Carbon Dioxide 34 H, Anion Gap 6.2, BUN 12, Creatinine 0.70, Estimated Creat Clear 56, Estimated GFR 80, Est GFR ( Amer) 97, Glucose 99, Calcium 9.2, Total Bilirubin 0.7, AST 31, ALT 19, Alkaline Phosphatase 83, Troponin I 0.06 H, NT-Pro-B Natriuret Pep 733 H, Total Protein 6.5, Albumin 3.4 L, Globulin 3.1, Albumin/Globulin Ratio 1.1 08/30/23 22:20: VBG pH 7.31, VBG pCO2 56.9 H, VBG pO2 30.7, VBG HCO3 27.9, VBG Total CO2 29.6 H, VBG O2 Saturation 60.9, VBG Base Excess 1.6 08/31/23 02:13: APTT 84.0 H*, Troponin I 0.08 H 08/31/23 06:22: WBC 8.6 D, RBC 3.40 L, Hgb 10.7 L, Hct 33.1 L, MCV 97.5, MCH 31.5 H, MCHC 32.3, RDW 12.7, Plt Count 240, MPV 8.1, Neut % (Auto) 68.5, Lymph % (Auto) 21.6, [place] % (Auto) 6.6, Eos % (Auto) 2.9, Baso % (Auto) 0.5, Neut # (Auto) 5.9, Lymph # (Auto) 1.9, [place] # (Auto) 0.6, Eos # (Auto) 0.3, Baso # (Auto) 0.1, APTT 92.9 H*, D-Dimer 1.16 H, Sodium 136, Potassium 3.7, Chloride 105, Carbon Dioxide 30, Anion Gap 4.7 L, BUN 13, Creatinine 0.80, Estimated Creat Clear 58, Estimated GFR 69, Est GFR ( Amer) 83, Glucose 118 H, Calcium 8.2 L, Magnesium 1.9, Total Bilirubin 0.5, AST 27, ALT 16, Alkaline Phosphatase 69, Troponin I 0.05 H, Total Protein 5.5 L, Albumin 2.8 L D, Globulin 2.7, Albumin/Globulin Ratio 1.0 L I & O for Last 24 hours: Intake & Output 08/29/23 08/30/23 08/31/23 09/01/23 11:59 11:59 11:59 11:59 Intake Total 505 / 505 Output Total 0 / 0 Balance 505 / 505 Weight 182 lb 15.739 oz Constitutional Constitutional: no acute distress *Routine Respiratory Exam Respiratory: Present CTA bilaterally *Routine Cardiovascular Exam Cardiovascular: Present RRR Meds Home Medications and Allergies Home Medications Medication Instructions Recorded Confirmed Type citalopram 20 mg tablet (Celexa) 20 mg PO DAILY Depression #90 tabs 01/03/23 08/30/23 Rx estradiol 0.01% (0.1 mg/gram) 1 applic vaginal DAILY 08/28/23 08/30/23 History vaginal cream levothyroxine 75 mcg tablet 75 mcg PO DAILY 08/28/23 08/30/23 History omeprazole 20 mg capsule,delayed 20 mg PO DAILY 08/28/23 08/30/23 History release pravastatin 40 mg tablet 40 mg PO DAILY Cholesterol 08/28/23 08/30/23 History aspirin 325 mg capsule 325 mg PO BID #60 caps 08/29/23 08/30/23 Rx oxycodone-acetaminophen 5 mg-325 1 tab PO Q6H PRN post op pain #40 08/29/23 08/30/23 Rx mg tablet tabs New Prescriptions to Start Prescriptions: Allergies Allergy/AdvReac Type Severity Reaction Status Date / Time No Known Allergies Allergy Verified 08/28/23 06:30 Assessment and Plan *Assessment and plan (1) Bilateral pulmonary embolism: Status: Acute Category: Medical Code(s): I26.99 - Other pulmonary embolism without acute cor pulmonale (2) Status post knee replacement: Status: Acute Qualifiers: Laterality: left Qualified Code(s): Z96.652 - Presence of left artificial knee joint Category: Surgical Code(s): Z96.659 - Presence of unspecified artificial knee joint (3) Hyperlipidemia: Status: Acute Qualifiers: Hyperlipidemia type: mixed hyperlipidemia Qualified Code(s): E78.2 - Mixed hyperlipidemia Category: Medical Code(s): E78.5 - Hyperlipidemia, unspecified (4) Elevated troponin: Status: Acute Category: Medical Code(s): R79.89 - Other specified abnormal findings of blood chemistry (5) Elevated brain natriuretic peptide (BNP) level: Status: Acute Category: Medical Code(s): R79.89 - Other specified abnormal findings of blood chemistry Plan 1. Bilateral pulmonary emboli -Currently on heparin drip but will switch to oral anticoagulation prior to discharge -Clinically stable -RV/LV index not concerning for RV strain therefore continue medical therapy 2. Recent total knee replacement, left side 3. Mildly elevated troponin likely secondary to bilateral pulmonary emboli -No plans for intervention at this time 4. Elevated BNP, likely secondary to pulmonary emboli -Repeat echo today is pending 5. Elevated glucose -Check hemoglobin A1c 6. Hyperlipidemia -Check lipid Echo shows normal EF with only mild RV dilatation. Start Xarelto 15 mg BID for 3 wks then 20 mg daily. Possibly home in AM.
--- NOTE | 2023-08-31 12:15 | PC.NURSE ---
patient oxygenation 87% on room air at rest
--- NOTE | 2023-08-31 12:27 | CARE MANAGER ---
Addendum entered by Yandy Davis 09/01/23 13:22: Brittany baker/ [facility] stated that services will resume for this patient. Addendum entered by Yandy Davis 09/01/23 09:50: Patient plans to return back home w/ family and home health services through [facility] at time of discharge. Original Note: Patient is currently an established patient with [facility]. MAYRA Skelton
[2023-08-31 12:32] LABS: Chol/HDL Ratio 2.8 (1-3.5); Cholesterol 136 mg/dl (140-200); HDL Cholesterol 48 mg/dl (40-60); Triglycerides 105 mg/dl (30-150); VLDL Cholesterol 21 mg/dL (0-40)
[2023-08-31 12:44] LABS: Direct LDL Cholesterol 64.63 mg/dL (100-129)
[2023-08-31 12:48] LABS: Hemoglobin A1C 5.4 % (4.0-6.0)
[2023-08-31 12:54] LABS: PTT Heparin (inpatient only) 77.2 Seconds (23.6-34.0)
--- NOTE | 2023-08-31 14:12 | EXP.PN ---
Subjective *Date: 08/31/23 *Time: 14:12 Interval history: patient was seen and evaluated at the bedside. No reported acute events overnight, denies chest pain, shortness of breath, nausea, vomiting, abdominal pain. Exam Data for Last 24 hours Vital signs and Labs for Last 24 Hours: Temp Pulse Resp BP Pulse Ox O2 Del Method O2 Flow Rate 97.9 F 80 20 136/57 L 95 Room Air 1 08/31/23 11:56 08/31/23 12:00 08/31/23 11:56 08/31/23 11:56 08/31/23 11:56 08/31/23 11:56 08/31/23 11:00 Laboratory Results - last 24 hr 08/30/23 22:10: WBC 11.6 H D, RBC 3.74 L, Hgb 11.8 L, Hct 36.8 L, MCV 98.3, MCH 31.7 H, MCHC 32.2, RDW 12.7, Plt Count 260, MPV 7.7, Neut % (Auto) 77.7, Lymph % (Auto) 15.3, Kimball % (Auto) 5.7, Eos % (Auto) 0.9, Baso % (Auto) 0.4, Neut # (Auto) 9.0 H, Lymph # (Auto) 1.8, Kimball # (Auto) 0.7, Eos # (Auto) 0.1, Baso # (Auto) 0.0, PT 10.0 L, INR 0.92, APTT 28.2, Sodium 137, Potassium 4.2, Chloride 101, Carbon Dioxide 34 H, Anion Gap 6.2, BUN 12, Creatinine 0.70, Estimated Creat Clear 56, Estimated GFR 80, Est GFR ( Amer) 97, Glucose 99, Calcium 9.2, Total Bilirubin 0.7, AST 31, ALT 19, Alkaline Phosphatase 83, Troponin I 0.06 H, NT-Pro-B Natriuret Pep 733 H, Total Protein 6.5, Albumin 3.4 L, Globulin 3.1, Albumin/Globulin Ratio 1.1 08/30/23 22:20: VBG pH 7.31, VBG pCO2 56.9 H, VBG pO2 30.7, VBG HCO3 27.9, VBG Total CO2 29.6 H, VBG O2 Saturation 60.9, VBG Base Excess 1.6 08/31/23 02:13: APTT 84.0 H*, Troponin I 0.08 H 08/31/23 06:22: WBC 8.6 D, RBC 3.40 L, Hgb 10.7 L, Hct 33.1 L, MCV 97.5, MCH 31.5 H, MCHC 32.3, RDW 12.7, Plt Count 240, MPV 8.1, Neut % (Auto) 68.5, Lymph % (Auto) 21.6, Kimball % (Auto) 6.6, Eos % (Auto) 2.9, Baso % (Auto) 0.5, Neut # (Auto) 5.9, Lymph # (Auto) 1.9, Kimball # (Auto) 0.6, Eos # (Auto) 0.3, Baso # (Auto) 0.1, APTT 92.9 H*, D-Dimer 1.16 H, Sodium 136, Potassium 3.7, Chloride 105, Carbon Dioxide 30, Anion Gap 4.7 L, BUN 13, Creatinine 0.80, Estimated Creat Clear 58, Estimated GFR 69, Est GFR ( Amer) 83, Glucose 118 H, Hemoglobin A1c 5.4, Calcium 8.2 L, Magnesium 1.9, Total Bilirubin 0.5, AST 27, ALT 16, Alkaline Phosphatase 69, Troponin I 0.05 H, Total Protein 5.5 L, Albumin 2.8 L D, Globulin 2.7, Albumin/Globulin Ratio 1.0 L, Triglycerides 105, Cholesterol 136 L, LDL Cholesterol Direct 64.63 L, VLDL Cholesterol 21, HDL Cholesterol 48, Cholesterol/HDL Ratio 2.8 08/31/23 12:12: APTT 77.2 H* I & O for Last 24 hours: Intake & Output 08/28/23 08/29/23 08/30/23 08/31/23 23:59 23:59 23:59 23:59 Intake Total 775 / 775 Output Total 0 / 0 Balance 775 / 775 Weight 80.739 kg 83 kg Constitutional Constitutional: no acute distress *Routine HEENT Exam Head: Present normocephalic Eye: Present EOMI and PERRL ENT: Present mucous membranes moist *Routine Neck Exam Neck: Present supple; Absent lymphadenopathy *Routine Respiratory Exam Respiratory: Present CTA bilaterally *Routine Cardiovascular Exam Cardiovascular: Present RRR *Routine Abdominal Exam Abdominal: Present soft and normoactive bowel sounds; Absent tenderness *Routine Extremities Exam Extremities: Absent cyanosis, clubbing or edema *Routine Skin Exam Skin: Present warm; Absent rash *Routine Neurological Exam Neurological: Present alert and oriented X3 Assessment and Plan *Assessment and plan (1) Pulmonary emboli: Status: Acute Qualifiers: Acute cor pulmonale presence: with acute cor pulmonale Chronicity: acute Pulmonary embolism type: other Qualified Code(s): I26.09 - Other pulmonary embolism with acute cor pulmonale Category: Medical Code(s): I26.99 - Other pulmonary embolism without acute cor pulmonale (2) Status post knee replacement: Status: Acute Qualifiers: Laterality: left Qualified Code(s): Z96.652 - Presence of left artificial knee joint Category: Surgical Code(s): Z96.659 - Presence of unspecified artificial knee joint (3) History of repair of atrial septal defect: Status: Acute Category: Surgical Code(s): Z87.74 - Personal history of (corrected) congenital malformations of heart and circulatory system (4) Diabetes mellitus, type 2: Status: Acute Qualifiers: Diabetes mellitus remote computer terminal operator insulin use: without remote computer terminal operator use Diabetes mellitus complication status: without complication Qualified Code(s): E11.9 - Type 2 diabetes mellitus without complications Category: Medical Code(s): E11.9 - Type 2 diabetes mellitus without complications Plan 83-year-old female history of hypertension, hyperlipidemia, diabetes, recent left knee replacement on 08/28 presenting with short of breath stated she was all of a sudden hit with shortness of breath, around 3 AM on 08/30. on arrival labs are significant for troponin elevated at 0.06, BNP mildly elevated at 730. Patient has mild leukocytosis 11.6, suspected reactive post op. CT angio of the chest PE protocol demonstrated multiple bilateral subsegmental PEs. Right heart to left heart ratio 0.9-1. final reading pending. See radiology read for full review of final results. Independent interpretation of EKG shows sinus rhythm 88 beats a minute with no ST or T wave changes concerning for acute ischemia. Incomplete bundle branch block. Findings discussed with ER for admission. Plan as follow: -Multiple PEs, right side strain not excluded: Admit patient. Step down Started and continue heparin infusion. Patient hemodynamically stable currently on room air Continue monitor. Vital signs per unit per Pulmonology consult Pulmonary to monitor and adjust heparin PTT every 6 -Status post first left knee replacement: PT OT consult for eval and treatment Dressing in place. Clean dry and intact Pain management with hydrocodone and Tylenol as needed History of repair anteroseptal defect: Patient has a history of previous stroke was initially on anticoagulant patient is that the blood thinner was stopped by cardiology. Continue monitor for long-term anticoagulation History of type 2 diabetes: Blood sugar monitor before meals and not on any current medical On heparin drip. On Protonix Full code continue on IV heparin, Echo has been ordered, pending results discussed plan with cardiology
--- NOTE | 2023-08-31 14:29 | HMH.PTEV ---
Physical Therapy Evaluation Rehab PT IP Evaluation Start: 08/31/23 10:16 Freq: ONCE Status: Active Protocol: Document 08/31/23 14:21 PHORJOVANY (Rec: 08/31/23 14:28 PHORNE [id number]) Subjective/History History History 83 yowf adm to [facility] with increased SOAand found to have B PE. She also recently had L TKA performed ~ 3 days ago. She has a RW for ambulation since her surgery. Subjective Subjective She reports feeling better, no SOA at this time and no increased L LE discomfort. Agrees to mobility assessment. New diagnosis of cancer in past 12 No months? Rehab PT IP Eval Objective Appearance Patient Behavior Appropriate Patient Orientation Person,Place,Time Difficulty following instructions none Speech Pattern Clear Ambulation Patient Able to Ambulate Yes Ambulation Observation IP General Gait Pattern Observation Antalgic Gait,Decrease Stride Lngth (R),Decrease Stride Lngth (L) Ambulation Distance (feet) 10 Ambulation Assistive Device Rolling Walker Ambulation Ability Contact Guard/Hand Hold Balance Ability to Arise Able, uses arms to help Sitting Balance Steady, safe Standing Balance Steady, wide stance Dynamic Standing Balance Ability Good Transfers Bed Transfer Ability Minimal x 1 (25% assist) Chair Transfer Ability Contact Guard/Hand Hold Sit to Stand Bed Transfer Ability Contact Guard/Hand Hold Sit to Stand Chair Transfer Ability Contact Guard/Hand Hold Rehab PT IP prob,goals,plan Problems Date of Evaluation: 08/31/23 PT IP Problems Bed Mobility,Transfers,Gait Rehab Potential Rehab Potential Good Plan PT Intervention Plan Bed Mobility,Transfers,Gait PT Plan Frequency BID Duration LOS Discharge Goals Bed Transfer Ability Contact Guard/Hand Hold Sit to Stand Chair Transfer Ability Supervision/Stand by Ambulation Assistive Device Rolling Walker Ambulation Distance (feet) 25 Discharge Plan PT Discharge Plan Pt is appropriate to return home once medically stable for d/c. Skilled intervention in needed to prevent further debility, injury, falls and wounds. Eval Complexity Eval Charge Codes 90220 - High Complexity PHYSICIAN CERTIFICATION: I certify the specified therapy services for Odalys Brink are required, authorized, and reviewed every 30 days.
--- NOTE | 2023-08-31 16:33 | PC.NURSE ---
NICOLÁS Hill ordered xarelto to start and then turn heparin gtt off 2 hours after xarelto started. VS stable and patient remained on 1LNC despite attempts to wean oxygen. Patient able to sit up in chair, lung sounds diminished. Ice pack applied to left knee to prevent swelling. No other changes noted.
[2023-08-31] MEDS: RIVAROXABAN 15MG TABLET 15 MG PO (16:38)
[2023-08-31] MEDS: PAT OWN MED ***OMEPRAZOLE 20 MG 1 EACH PO (20:33)
[2023-08-31] MEDS: PRAVASTATIN 40 MG PO (20:33)
[2023-09-01] VITALS: BP 120/61; PULSE 80; PULSE 82; RESP 18; TEMP 36.6; O2SAT 92
[2023-09-01 04:00] VITALS: BP 142/70; PULSE 78; PULSE 80; RESP 18; TEMP 36.4; O2SAT 94; BMI 31.1
[2023-09-01] MEDS: LEVOTHYROXINE 75 MCG PO (06:27)
--- NOTE | 2023-09-01 06:34 | PC.NURSE ---
patient has done well tonight, remained on 1lNC denies soa, no issues with pain
[2023-09-01 08:00] VITALS: BP 158/63; PULSE 86; PULSE 90; RESP 16; TEMP 36.9; O2SAT 96
--- NOTE | 2023-09-01 08:08 | EXP.CARD.PN ---
Subjective Subjective Date: 09/01/23 Time: 08:08 Principal diagnosis: PE Interval history: 83-year-old white female in bed in no acute distress. Breathing may be slightly better today. She denies any chest pain. Lower extremity Doppler showed no evidence of DVT bilaterally. Exam Data for Last 24 hours Vital signs and Labs for Last 24 Hours: Temp Pulse Resp BP Pulse Ox O2 Del Method O2 Flow Rate 97.6 F 78 18 142/70 H 94 L Nasal Cannula 1 09/01/23 04:00 09/01/23 04:00 09/01/23 04:00 09/01/23 04:00 09/01/23 04:00 09/01/23 06:22 09/01/23 06:22 Laboratory Results - last 24 hr 08/31/23 06:22: D-Dimer 1.16 H, Hemoglobin A1c 5.4, Triglycerides 105, Cholesterol 136 L, LDL Cholesterol Direct 64.63 L, VLDL Cholesterol 21, HDL Cholesterol 48, Cholesterol/HDL Ratio 2.8 08/31/23 12:12: APTT 77.2 H* I & O for Last 24 hours: Intake & Output 08/29/23 08/30/23 08/31/23 09/01/23 11:59 11:59 11:59 11:59 Intake Total 505 / 505 1487 / 1487 Output Total 0 / 0 650 / 650 Balance 505 / 505 837 / 837 Weight 182 lb 15.739 oz 194 lb Constitutional Constitutional: no acute distress *Routine Respiratory Exam Respiratory: Present CTA bilaterally *Routine Cardiovascular Exam Cardiovascular: Present RRR Progress Note: A&P Assessment and plan (1) Bilateral pulmonary embolism: Status: Acute (2) Status post knee replacement: Status: Acute (3) Hyperlipidemia: Status: Acute (4) Elevated troponin: Status: Acute (5) Elevated brain natriuretic peptide (BNP) level: Status: Acute Assessment and Plan Assessment and Plan for All Diagnoses:: 1. Bilateral pulmonary emboli -Xarelto started last evening and heparin discontinued -Clinically stable -RV/LV index not concerning for RV strain therefore continue medical therapy 2. Recent total knee replacement, left side 3. Mildly elevated troponin likely secondary to bilateral pulmonary emboli -No plans for intervention at this time 4. Elevated BNP, likely secondary to pulmonary emboli 5. Elevated glucose -Hemoglobin A1c 5.4 6. Hyperlipidemia -LDL 64 on pravastatin Clinically stable from a cardiac standpoint for discharge home when okay with hospitalist and pulmonary. Patient currently on Xarelto 15 mg twice daily for 3 weeks with plans to switch to 20 mg daily thereafter. However if pulmonary prefers apixaban we are not opposed to changing. Follow-up in the office 2 weeks.
[2023-09-01] MEDS: CITALOPRAM 20 MG PO (08:23)
[2023-09-01] MEDS: OXYCODONE 5MG W/APAP 325MG TABLET 1 EACH PO (08:27)
[2023-09-01 09:50] VITALS: O2SAT 95
--- NOTE | 2023-09-01 09:54 | EXP.PULM.PN ---
Subjective *Date: 09/01/23 *Time: 12:26 Interval history: No acute respiratory events overnight. Patient admits continued improvement in respiratory status. Pulmonology Exam Inpatient Vital signs and Labs for Last 24 Hours: Temp Pulse Resp BP Pulse Ox O2 Del Method O2 Flow Rate 98.5 F 86 16 158/63 H 95 Room Air 1 09/01/23 08:00 09/01/23 08:00 09/01/23 08:00 09/01/23 08:00 09/01/23 09:50 09/01/23 09:50 09/01/23 08:00 Laboratory Results - last 24 hr 08/31/23 06:22: D-Dimer 1.16 H, Hemoglobin A1c 5.4, Triglycerides 105, Cholesterol 136 L, LDL Cholesterol Direct 64.63 L, VLDL Cholesterol 21, HDL Cholesterol 48, Cholesterol/HDL Ratio 2.8 08/31/23 12:12: APTT 77.2 H* I & O for Labs for Last 24 Hours: Intake & Output 08/29/23 08/30/23 08/31/23 09/01/23 23:59 23:59 23:59 23:59 Intake Total 1991 / 1991 240 / 240 Output Total 650 / 650 Balance 1342 / 1342 240 / 240 Weight 178 lb 182 lb 15.739 oz 194 lb Constitutional: Present moderate distress Head: Present normocephalic and atraumatic ENT: Present normal exam, normal oropharynx and mucous membranes moist Neck: Present normal inspection and full ROM Respiratory: Present CTA bilaterally and able to speak in complete sentences; Absent prolonged expiratory phase, respiratory distress, wheezes, crackles or diminished air movement Cardiac: Present S1/S2, Tachycardia and radial pulses present GI: Present soft and distention; Absent tenderness or guarding Rectal (female): Present deferred (female): Present deferred Skin: Present intact; Absent cyanosis or jaundice Neuro: Present alert, awake and oriented x 3 Extremities: Present normal inspection; Absent clubbing or cyanosis Psychiatric: Present normal affect and cooperative Assessment and Plan *Assessment and plan (1) Acute respiratory failure with hypoxia: Status: Acute Category: Medical Code(s): J96.01 - Acute respiratory failure with hypoxia (2) Bilateral pulmonary embolism: Status: Acute Category: Medical Code(s): I26.99 - Other pulmonary embolism without acute cor pulmonale Plan Ms. Brink is a 83-year-old female no significant smoking history, no baseline respiratory complaints not using any inhalers or oxygen at baseline with reported history hypertension, dyslipidemia and diabetes mellitus, recent knee replacement 08/28/2021 presented with worsening shortness of breath sudden onset followed by CTA that noted a bilateral pulmonary embolism and pulmonary was called for further evaluation and management. CTA upon admission noted to have bilateral subsegmental pulmonary embolism. No dense consolidation/airspace disease/effusions noted. No evidence of RV strain. Troponin elevated upon admission, stable. D-dimer 1.16. On examination patient appeared to be in moderate respiratory distress. On 1 L nasal cannula saturating 95%. Interval update: No acute respiratory vents overnight. Lower EXTR venous Doppler negative for DVT, limited evaluation of the left knee surrounding knee joint. Patient refused to be initiated apixaban given higher co-pay and the plan was made to discharge the patient on Xarelto. Plan: -Continue Xarelto for total of 6 months. -DuoNebs every 6 hours on as-needed basis -Continue oxygen supplementation to maintain O2 saturation below 90% above, wean as tolerated # Thank you for involving pulmonary in this patient care. Follow the patient in pulmonary clinic 2 weeks post discharge
--- NOTE | 2023-09-01 10:56 | EXP.DC.SUM ---
General Admission date:: 08/31/23 Discharge date: 09/01/23 HPI HPI HPI: This is a 83-year-old female history of hypertension, hyperlipidemia, diabetes, recent left knee replacement on 08/28 presenting with short of breath stated she was all of a sudden hit with shortness of breath, around 3 AM on 08/30. Tried to make it throughout the day, but was short of breath with very minimal exertion. Her family is in healthcare, convinced her to come to the emergency department, so she presents for further evaluation. Denies chest pain, hemoptysis, nausea or vomiting, fevers or chills. She does have left lower extremity swelling and tenderness, but due to the surgery and not outside of surgical field. Admitted for treatment and management Hospital Course Hospital Course Hospital Course: 83-year-old female history of hypertension, hyperlipidemia, diabetes, recent left knee replacement on 08/28 presenting with short of breath stated she was all of a sudden hit with shortness of breath, around 3 AM on 08/30. on arrival labs are significant for troponin elevated at 0.06, BNP mildly elevated at 730. Patient has mild leukocytosis 11.6, suspected reactive post op. CT angio of the chest PE protocol demonstrated multiple bilateral subsegmental PEs. Right heart to left heart ratio 0.9-1. final reading pending. See radiology read for full review of final results. Independent interpretation of EKG shows sinus rhythm 88 beats a minute with no ST or T wave changes concerning for acute ischemia. Incomplete bundle branch block. Findings discussed with ER for admission. Plan as follow: -Multiple PEs, right side strain not excluded: Admit patient. Step down Started and continue heparin infusion. Patient hemodynamically stable currently on room air Continue monitor. Vital signs per unit per Pulmonology consult Pulmonary to monitor and adjust heparin PTT every 6 -Status post first left knee replacement: PT OT consult for eval and treatment Dressing in place. Clean dry and intact Pain management with hydrocodone and Tylenol as needed History of repair anteroseptal defect: Patient has a history of previous stroke was initially on anticoagulant patient is that the blood thinner was stopped by cardiology. Continue monitor for long-term anticoagulation History of type 2 diabetes: Blood sugar monitor before meals and not on any current medical On heparin drip. On Protonix Plan to dc, started on Eliquis, f/u with your PCP and Employee Development Specialist and Orthopedics Exam Data for Last 24 hours Vital signs and Labs for Last 24 Hours: Temp Pulse Resp BP Pulse Ox O2 Del Method O2 Flow Rate 98.5 F 86 16 158/63 H 95 Room Air 1 09/01/23 08:00 09/01/23 08:00 09/01/23 08:00 09/01/23 08:00 09/01/23 09:50 09/01/23 09:50 09/01/23 08:00 Laboratory Results - last 24 hr 08/31/23 06:22: Hemoglobin A1c 5.4, Triglycerides 105, Cholesterol 136 L, LDL Cholesterol Direct 64.63 L, VLDL Cholesterol 21, HDL Cholesterol 48, Cholesterol/HDL Ratio 2.8 08/31/23 12:12: APTT 77.2 H* I & O for Last 24 hours: Intake & Output 08/29/23 08/30/23 08/31/23 09/01/23 23:59 23:59 23:59 23:59 Intake Total 1991 / 1991 240 / 240 Output Total 650 / 650 Balance 1342 / 1342 240 / 240 Weight 80.739 kg 83 kg 87.997 kg Constitutional Constitutional: no acute distress *Routine HEENT Exam Head: Present normocephalic Eye: Present EOMI and PERRL ENT: Present mucous membranes moist *Routine Neck Exam Neck: Present supple; Absent lymphadenopathy *Routine Respiratory Exam Respiratory: Present CTA bilaterally *Routine Cardiovascular Exam Cardiovascular: Present RRR *Routine Abdominal Exam Abdominal: Present soft and normoactive bowel sounds; Absent tenderness *Routine Extremities Exam Extremities: Absent cyanosis, clubbing or edema *Routine Skin Exam Skin: Present warm; Absent rash *Routine Neurological Exam Neurological: Present alert and oriented X3 Results Data Completed and Pending Labs on day of discharge: Labs from last 24 hours 08/31/23 08/31/23 12:12 06:22 APTT 77.2 H* Hemoglobin A1c 5.4 Triglycerides 105 Cholesterol 136 L LDL Cholesterol Direct 64.63 L VLDL Cholesterol 21 HDL Cholesterol 48 Cholesterol/HDL Ratio 2.8 DS: Diagnosis Discharge Diagnosis (1) Acute respiratory failure with hypoxia: Status: Acute Code(s): J96.01 - Acute respiratory failure with hypoxia (2) Bilateral pulmonary embolism: Status: Acute Code(s): I26.99 - Other pulmonary embolism without acute cor pulmonale Meds Home Medications and Allergies Home Medications Medication Instructions Recorded Confirmed Type citalopram 20 mg tablet (Celexa) 20 mg PO DAILY Depression #90 tabs 01/03/23 08/30/23 Rx estradiol 0.01% (0.1 mg/gram) 1 applic vaginal DAILY 08/28/23 08/30/23 History vaginal cream levothyroxine 75 mcg tablet 75 mcg PO DAILY 08/28/23 08/30/23 History omeprazole 20 mg capsule,delayed 20 mg PO DAILY 08/28/23 08/30/23 History release pravastatin 40 mg tablet 40 mg PO DAILY Cholesterol 08/28/23 08/30/23 History oxycodone-acetaminophen 5 mg-325 1 tab PO Q6H PRN post op pain #40 08/29/23 08/30/23 Rx mg tablet tabs apixaban 5 mg tablet (Eliquis) 5 mg PO BID #30 tabs 09/01/23 Rx New Prescriptions to Start Prescriptions: apixaban [Eliquis] Ngoc Arevalo Allergies Allergy/AdvReac Type Severity Reaction Status Date / Time No Known Allergies Allergy Verified 08/28/23 06:30 Discharge Plan Disposition Patient Disposition: Home Health Service Discharge Order Discharge Orders: Discharge Order (Routine); Ordered 09/01/23 Ordered By: Ngoc Arevalo Follow up Plan Follow up with: Bob Looney MD [Staff Physician] - 2 weeks Karri Humphrey MD [Physician] - 2 weeks Prescriptions/Medication Reconciliation: New Eliquis 5 mg tablet 5 mg PO BID Qty: 30 0RF Continued citalopram [Celexa] 20 mg tablet 20 mg PO DAILY Qty: 90 2RF pravastatin 40 mg tablet 40 mg PO DAILY levothyroxine 75 mcg tablet 75 mcg PO DAILY omeprazole 20 mg capsule,delayed release(DR/EC) 20 mg PO DAILY estradiol 0.01 % (0.1 mg/gram) cream 1 applic vaginal DAILY oxycodone-acetaminophen 5-325 mg tablet 1 tab PO Q6H PRN (Reason: post op pain) Qty: 40 0RF Discontinued aspirin 325 mg capsule 325 mg PO BID Qty: 60 0RF Problem Reconciliation Problems Reviewed?: Yes Patient Discharge Instructions ACTIVITY: Ambulate as tolerated and Limited activity DIET: advance to your usual diet Patient Instructions: DI for Pulmonary Embolism Providers Primary Care Provider: Carson Cabrera Admit Provider: Heraclio Miller Attending Provider: Ngoc Arevalo
[2023-09-01 12:00] VITALS: PULSE 80
--- NOTE | 2023-09-05 14:30 | CARE MANAGER ---
Contacted patient related to hospital discharge. She states she is better than she was. Home health started yesterday and she is aware of all her follow up appointments. She denies any questions or concerns. MAYRA Skelton
== END 2023-09-01 14:04 | disposition home health service (06) | DRG 469 ==
LOC: ER 23:46 → 2ND 08-31 00:13
PROVIDERS: Internal Medicine Pulmonary Disease; Physician Assistant; Admitting Provider Nurse Practitioner Family; Emergency Provider Emergency Medicine; PCP Family Medicine; Visit Provider Internal Medicine
DX: I26.99 Other pulmonary embolism without acute cor pulmonale (principal); J96.01 Acute respiratory failure with hypoxia; E11.8 Type 2 diabetes mellitus with unspecified complications; I10 Essential (primary) hypertension; Z85.038 Personal history of other malignant neoplasm of large intestine; Z86.73 Personal history of transient ischemic attack (TIA), and cerebral infarction without residual deficits; E78.2 Mixed hyperlipidemia; M17.12 Unilateral primary osteoarthritis, left knee; Z79.899 Other long term (current) drug therapy
CPT/HCPCS: 27447; 36415; 71045; 71275; 73562; 80048; 80053; 80061; 82803; 83036; 83735; 83880; 84484; 85025; 85378; 85610; 85730; 93005; 93306; 93970; 96374; 97162; 97163; 97166; 97530; 99291; C1713; C1776; C9290; G0378; J2405; Q9967

== ENCOUNTER 2023-09-12 13:56 | Outpatient (CLI) | payer MEDICARE, OTHER, SELFPAY ==
--- NOTE | 2023-09-12 13:59 | XR_ITS ---
FINAL REPORT CLINICAL HISTORY: Left TKA COMPARISON: None FINDINGS: Three views of the left knee reveal no evidence of fracture or dislocation. The patient has undergone a total knee arthroplasty. The bony alignment is normal. The joint spaces are preserved. There is a moderate size joint effusion present. No localized soft tissue abnormality is seen. Surgical clips are noted in the anterior soft tissues. IMPRESSION: Total knee arthroplasty on the with a moderate size joint effusion. Reviewed, Interpreted and Dictated by Po Thurman III, MD Transcribed by Ebony Mata Authenticated and [facility]
== END 2023-09-12 23:59 ==
PROVIDERS: PCP Family Medicine; Visit Provider Orthopaedic Surgery
DX: T84.033A Mechanical loosening of internal left knee prosthetic joint, initial encounter (principal); M25.562 Pain in left knee
CPT/HCPCS: 73562

== ENCOUNTER 2023-09-14 14:06 | Outpatient (CLI) | payer MEDICARE, OTHER, SELFPAY ==
[2023-09-14 14:12] LABS: MANUAL DIFFERENTIAL MANUAL DIFFERENTIAL (MANUAL DIFF)
[2023-09-14 14:33] LABS: Basophils % 0.3 % (0.1-2.0); Eosinophils # 0.1 K/mm3 (0.0-0.4); Eosinophils % 1.4 % (0.1-12.0); Hemoglobin 12.9 g/dL (12.2-16.2); Lymphocytes # 2.6 K/mm3 (0.7-4.5); Lymphocytes % 27.1 % (10-50); Mean Corpuscular HGB Conc 32.2 g/dL (31.8-35.4); Mean Corpuscular Hemoglobin 30.9 pg (27.0-31.2); Mean Platelet Volume 7.5 fl (7.4-10.4); Monocytes # 0.4 K/mm3 (0.1-1.0); Monocytes % 4.3 % (1.7-9.3); Neutrophils # 6.4 K/mm3 (1.8-7.8); Neutrophils % 66.8 % (37.0-80.0); Platelet Count 632 K/mm3 (142-424); Red Blood Count 4.17 M/mm3 (4.20-5.40); Red Cell Distribution Width 12.9 % (11.5-17.5); White Blood Count 9.6 K/mm3 (4.8-10.8)
[2023-09-14 14:59] LABS: Anion Gap 8.7 mEq/L (5-15); Blood Urea Nitrogen 20 mg/dl (7-17); Calcium 9.5 mg/dl (8.4-10.2); Carbon Dioxide 31 mmol/L (22.0-30.0); Chloride 104 mmol/L (98-107); Estimated Glomerular Filt Rate 69 ml/min (>60); GFR (African American) 83 ML/MIN (>60); Glucose 95 mg/dl (74-100); Potassium 4.7 mmoL/L (3.5-5.1); Sodium 139 mmol/L (136-145)
[2023-09-14 15:09] LABS: Lymphocytes % 26 % (10-50); Monocytes % 3 % (2-9); Neutrophils % 71 % (42-76); RBC Morphology Normal; Total Cells Counted 100
[2023-09-14 15:10] LABS: Platelet Estimate Slight Increase
== END 2023-09-14 23:59 ==
PROVIDERS: PCP Family Medicine; Visit Provider Internal Medicine
DX: E78.2 Mixed hyperlipidemia (principal); Z79.899 Other long term (current) drug therapy; Z79.01 Long term (current) use of anticoagulants
CPT/HCPCS: 36415; 80048; 85007; 85014; 85018; 85048; 85049

== ENCOUNTER 2023-11-03 13:16 | Emergency (ER) | payer OTHER, SELFPAY ==
[2023-11-03 13:17] VITALS: BP 170/88; PULSE 78; RESP 16; TEMP 36.6; O2SAT 97; BMI 27.4
--- NOTE | 2023-11-03 13:25 | CT_ITS ---
FINAL REPORT CLINICAL HISTORY: fall on xarelto L trauma COMPARISON: 07/07/2021 FINDINGS: Axial images of the head were obtained without contrast. Coronal and sagittal reformatted images were also obtained. This study was performed with techniques to keep radiation doses as low as reasonably achievable (ALARA). Individualized dose reduction techniques using automated exposure control or adjustment of mA and/or kV according to the patient's size were employed. There is generalized age-appropriate atrophy. Periventricular low-attenuation areas are seen consistent with moderate chronic ischemic changes, more prominent than seen on the prior CT of 2020. There is left frontal encephalomalacia, stable. There is no evidence of intracranial hemorrhage or mass. There is no evidence of acute infarct. There is no evidence of shift of the midline structures. There is moderate mucosal thickening in the maxillary sinuses bilaterally and in several ethmoid air cells. IMPRESSION: Atrophy and mild periventricular chronic ischemic changes. Left frontal encephalomalacia, stable since the prior CT of 2020. Moderate mucosal thickening in the maxillary sinuses bilaterally as well as several ethmoid air cells. No acute intracranial abnormality identified. Reviewed, Interpreted and Dictated by Po Thurman III, MD Transcribed by Ebony Mata Authenticated and [facility]
--- NOTE | 2023-11-03 13:25 | CT_ITS ---
FINAL REPORT CLINICAL HISTORY: fall L head trauma on xarelto COMPARISON: None FINDINGS: Axial CT images of the cervical spine were obtained without contrast. Sagittal and coronal reformatted images were also obtained. This study was performed with techniques to keep radiation doses as low as reasonably achievable (ALARA). Individualized dose reduction techniques using automated exposure control or adjustment of mA and/or kV according to the patient's size were employed. There is no evidence of fracture or dislocation. The bony alignment is normal. There is mild and moderate degenerative change in the cervical spine. There is mild canal stenosis at the C5-6 level. There is neural foraminal narrowing at several levels bilaterally. There are calcified bilateral cervical nodes present. Limited images of the upper thorax are unremarkable. IMPRESSION: Mild and moderate degenerative change as described above, without acute bony abnormality identified. Reviewed, Interpreted and Dictated by Po Thurman III, MD Transcribed by Ebony Mata Authenticated and [facility]
[2023-11-03] MEDS: TET/DIPHTH/PERT-ADULT 0.5ML SYRINGE 0.5 ML IM (13:56)
[2023-11-03 14:01] VITALS: BP 186/81; PULSE 72; RESP 20; O2SAT 97
[2023-11-03 14:31] VITALS: BP 172/82; PULSE 74; RESP 20; O2SAT 98
[2023-11-03] MEDS: ACETAMINOPHEN 500MG TAB 1000 MG PO (14:49)
[2023-11-03 15:00] VITALS: BP 167/140; PULSE 77; RESP 20; O2SAT 97
--- NOTE | 2023-11-03 15:24 | ED_ITS ---
Discharge Plan Disposition Patient Disposition: Home, Self-Care Prescriptions Prescriptions: No Action Xarelto 20 mg tablet 20 mg PO DAILY Qty: 30 5RF Rx Instructions: must administer with evening meal citalopram [Celexa] 20 mg tablet 20 mg PO DAILY Qty: 90 2RF omeprazole 20 mg capsule,delayed release(DR/EC) 20 mg PO DAILY Qty: 90 1RF codeine-guaifenesin 10-100 mg/5 mL liquid 10 ml PO Q4-6H PRN (Reason: cough) Qty: 120 1RF levothyroxine 75 mcg tablet 75 mcg PO DAILY Qty: 90 1RF pravastatin 40 mg tablet 40 mg PO DAILY estradiol 0.01 % (0.1 mg/gram) cream 1 applic vaginal DAILY Referrals Follow up/Referrals: Carson Cabrera MD [Primary Care Provider] - See instructions Activity Restrictions/Add. Instructions Additional Instructions/Restrictions: At this time it was felt you are safe to be discharged home. If new or worsening symptoms please do not hesitate to return the emergency department. Clinical Impressions Clinical Impression: Fall, Laceration of head Instructions Patient Instructions: DI for Laceration Repair Discharge ED Provider: Josep Hendricks General Adult HPI General Chief complaint: Wound/Laceration Stated complaint: fall, lac to eyebrow Time Seen by Provider: 11/03/23 13:24 Mode of Arrival: Wheelchair Source of Information: Patient Limitations: No Limitations Description of Symptoms (Recalled from ER Triage Doc. by RN): Patient reports tripping and falling, striking her head. Laceration noted to left eye area. History of Present Illness HPI narrative: Patient is 83-year-old female with past medical history of previous pulmonary embolism on anticoagulation presents emergency department for evaluation of traumatic injury sustained in a fall. Patient fell tripping on something mechanically striking her left scientologist. No loss of consciousness. She had a wound that caused her to present here for continued evaluation. Denies headache, neck pain. She struck her left elbow however has full range of motion. No other acute complaints at this time. Tdap not up-to-date. Related Data Home Medications Medication Instructions Recorded Confirmed estradiol 0.01% (0.1 mg/gram) 1 applic vaginal DAILY 08/28/23 10/19/23 vaginal cream pravastatin 40 mg tablet 40 mg PO DAILY Cholesterol 08/28/23 10/19/23 Previous Rx's Medication Instructions Recorded citalopram 20 mg tablet (Celexa) 20 mg PO DAILY Depression #90 tabs 09/07/23 omeprazole 20 mg capsule,delayed 20 mg PO DAILY GERD #90 caps 09/07/23 release levothyroxine 75 mcg tablet 75 mcg PO DAILY thyroid #90 tabs 09/12/23 rivaroxaban 20 mg tablet (Xarelto) 20 mg PO DAILY #30 tabs 09/14/23 codeine 10 mg-guaifenesin 100 mg/5 10 ml PO Q4-6H PRN cough #120 mL 10/19/23 mL oral liquid Allergies Allergy/AdvReac Type Severity Reaction Status Date / Time No Known Allergies Allergy Verified 10/19/23 13:22 [facility] Disclaimer: The information contained in this section may have been updated after the patient was seen, as this information can be updated by other users. Medical History Elevated brain natriuretic peptide (BNP) level Elevated troponin Bilateral pulmonary embolism Acute respiratory failure with hypoxia Acute hypoxemic respiratory failure Pulmonary emboli History of gastroesophageal reflux (GERD) History of hyperlipidemia History of colon cancer Abnormal electrocardiogram [ECG] [EKG] Encounter for pre-operative cardiovascular clearance Pessary maintenance Encounter for gynecological examination (general) (routine) without abnormal findings Incomplete uterovaginal prolapse Cystocele Prolapse of bladder Hypothyroid Depression Anxiety Cough URI (upper respiratory infection) Acute bronchitis Bronchitis Cancer Diabetes mellitus, type 2 History of stroke Piriformis syndrome of right side Right thigh pain Right hip pain Fall Sinusitis Contusion of hip Muscle spasm Low back pain UTI (urinary tract infection) Leukocytosis Surgical History 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 History of repair of atrial septal defect H/O partial thyroidectomy Family History Other No significant family history Social History Smoking Status: Never smoker second hand exposure: No alcohol intake: never substance use type: denies use current occupational status: employed and other Travel in the last 8 weeks: None household members: family housing: house current occupational exposures/hazards: No caffeine: Yes ROS Obtained: Yes Systems reviewed as appropriate & no additional complaints except as documented Physical Exam General General appearance: alert and in no apparent distress Head Head exam: normocephalic and other (Curvilinear laceration over the left scientologist that is oozing blood) Eye Eye exam: Present PERRL and EOMI ENT ENT exam: Present mucous membranes moist Neck Neck exam: Present normal inspection Chest Chest inspection: Present normal inspection and symmetric chest wall rise Respiratory Respiratory exam: Absent respiratory distress Cardiovascular Cardiovascular exam: Present regular rate and normal rhythm Abdominal Exam Abdominal exam: Present soft Extremities Exam Extremities exam: Present normal inspection and other (Full range of motion left elbow, no tenderness.) Neurological Exam Neurological exam: Present alert and oriented X3 Psychiatric Psychiatric exam: Present normal affect Skin Skin exam: Present warm and dry Medical Decision Making En[place] Inquiry Pt receiving controlled substance: No Vital Signs: 11/03/23 13:17 11/03/23 14:01 11/03/23 14:31 Temperature 97.9 F Temperature Source Oral Pulse Rate 72 74 Pulse Rate [Radial] 78 Respiratory Rate 16 20 20 Blood Pressure 186/81 H 172/82 H Blood Pressure [Right Arm] 170/88 H Blood Pressure Mean 97 112 Blood Pressure Mean [Right Arm] 115 Blood Pressure Source [Right Arm] Automatic Cuff Blood Pressure Position [Right Arm] Sitting 02 Sat by Pulse Oximetry 97 97 98 Oxygen Delivery Method Room Air 11/03/23 15:00 11/03/23 15:30 Temperature Temperature Source Pulse Rate 77 74 Pulse Rate [Radial] Respiratory Rate 20 20 Blood Pressure 167/140 H 164/90 H Blood Pressure [Right Arm] Blood Pressure Mean 149 114 Blood Pressure Mean [Right Arm] Blood Pressure Source [Right Arm] Blood Pressure Position [Right Arm] 02 Sat by Pulse Oximetry 97 94 L Oxygen Delivery Method Orders (Tests/Meds): ED MEDICATIONS Discontinued Medications Generic Name Dose Route Start Last Admin Trade Name Freq PRN Reason Stop Dose Admin Acetaminophen 1,000 mg 11/03/23 14:45 11/03/23 14:49 Acetaminophen 500mg Tab PO 11/03/23 14:46 1,000 mg ONCE ONE Administration Tetanus/Reduced Diphtheria/Acell Pertussis 0.5 ml 11/03/23 13:25 11/03/23 13:56 Tet/Diphth/Pert-Adult 0.5ml Syringe IM 11/03/23 13:26 0.5 ml .ONCE ONE Administration ORDERS Category Date Time Status CT cervical spine wo con Stat Cat Scan 11/03/23 13:[address] head/brain wo con Stat Cat Scan 11/03/23 13:25 Completed Medical Decision Narrative: In summary patient is an 83-year-old female past medical history described above presents emergency department for evaluation of traumatic injury sustained in a fall on anticoagulation. Patient is hemodynamically stable nontoxic-appearing upon arrival. C-spine precautions were initiated given age and falling striking her head. Trauma survey will be conducted with noncontrasted CT scan of the head, noncontrasted CT scan of the cervical spine. Tdap will be updated. Shared decision making discussion was had at bedside with sutures versus Steri- Strips given that wound is well-approximated. Patient elected for Steri-Strips. CT head no acute intracranial abnormality. CT cervical spine no acute intracranial abnormality. Wound was repaired with success and patient is appropriate for discharge at this time. Procedure: Procedure performed laceration repair. Procedure performed by Josep Hendricks. Using Steri-Strip wound was well-approximated, laceration margins were covered with skin glue. Length of laceration was approximately 2.5 cm. Laceration location was left scientologist. Patient tolerated the procedure well. There were no immediate complications. Critical Care Critical Care Time Critical Care Time: No
[2023-11-03 15:30] VITALS: BP 164/90; PULSE 74; RESP 20; O2SAT 94
[2023-11-03 16:03] VITALS: BP 180/85; PULSE 74; RESP 20; TEMP 36.6; O2SAT 94
== END 2023-11-03 16:04 | disposition home or self-care (01) ==
PROVIDERS: Emergency Provider Emergency Medicine; PCP Family Medicine
DX: S01.01XA Laceration without foreign body of scalp, initial encounter (principal); E03.9 Hypothyroidism, unspecified; E11.9 Type 2 diabetes mellitus without complications; K21.9 Gastro-esophageal reflux disease without esophagitis; W01.10XA Fall on same level from slipping, tripping and stumbling with subsequent striking against unspecified object, initial encounter; Z23 Encounter for immunization
CPT/HCPCS: 12001; 70450; 72125; 90471; 90715; 99285

== ENCOUNTER 2023-11-14 13:00 | Outpatient (RCR) | payer MEDICARE, OTHER, SELFPAY ==
--- NOTE | 2023-09-19 17:51 | HMH.PTOPEV ---
PT Outpatient Evaluation Rehab PT Outpatient Evaluation Start: 09/19/23 15:53 Freq: Status: Active Protocol: Document 09/19/23 15:53 MIRIAMVALENTINE (Rec: 09/19/23 17:51 SILVESTRE [id number]) E-signed By Mamie Bledsoe, PT Outpatient Therapy Subjective History Subjective History Pt is an 83 y/o female who reports to PT 3 weeks s/p L TKA performed on 08/28/23. Pt reports she stayed in the hospital overnight and returned to her daughter's house the next day. Pt reports her oxygen level was in the 60s so she went to hospital and was found to have a pulmonary embolism which she was hospitalized for. Pt reports she is doing well now, denies current SOA and reports her oxygen saturations have improved. Pt reports she was cleared by her doctor to participate in outpatient therapy without exercise restrictions. Pt had a knee xray on 09/12/23 showing good alignment. Pt reports she received home health physical therapy for a couple weeks and is continuing exercises at home such as quad sets, ankle pumps and seated heel slides. Pt reports pain of the medial aspect of the knee and a knot in this area that has recently appeared. Pt denies redness, warmth or fever. Pt denies numbness/tingling. Pt reports she recently returned home to her house, states she lives with her grandson in a single story home with 1 step to enter the kitchen and living room. Pt reports she is using her RW for all community ambulation and has used her quad cane for household ambulation without issues, denies falls. Pt reports prior to surgery she was ambulating without an AD. Pt reports she is able to transfer in/out of the shower and on/off the toilet independently and can don her shoes and socks with moderate difficulty. Pt reports she returns to Dr. Craven in 4 weeks for a follow- up visit. 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 Medical History: Pulmonary emboli, Type II Diabetes, High cholesterol Spo2: 96-98% with table exercises New diagnosis of cancer in past 12 No: Colon cancer 12 years ago, months? currently cancer free Chief Complaint Pain,Stiff,Swelling Symptom Type Ache,Dull Symptoms Relieved By Rest/Positioning,Ice,Elevation Symptoms Aggravated By Physical Activity,Twisting, Walking Current Functional Limitations Standing,Recreation Activity, Walking,Stairs,Balance Symptom Description Intermittent Level of pain today (0-10) 0 Pain scale - at its best (0-10) 0 Pain scale - at its worst (0-10) 6 Hip/Knee Eval Gait Observation General Gait Pattern Observation Antalgic Gait Assistive Device Assistive Devices Rolling / Wheeled Walker Palpation Tenderness left Knee Palpation Finding Tenderness Knee Palpation Overall Comment medial tibia, generalized tenderness MMT Hip Flexion Strength Grade 4- Good- Hip Abduction Strength Grade 4- Good- Hip Adduction Strength Grade 4- Good- Hip Extension Strength Grade 4- Good- Knee Extension Strength Grade 4 Good Knee Flexion Strength Grade 4 Good ROM Knee Extension Active Range of Motion ( 5 degrees) Knee Extension Passive Range of Motion ( 0 degrees) Knee Flexion Active Range of Motion ( 85 degrees) Knee Flexion Passive Range of Motion ( 100 degrees) Effusion joint effusion knee exam standard left Mid - Patellar Circumerential Measure ( 42 cm) 5cm Proximal Circumference Measure (cm) 44.5 5cm Distal Circumference Measure (cm) 38 Lower Extremity Functional Index Activities Today, do you or would you have any difficulty at all with: a.Any of your usual work, housework or A little bit of difficulty school activities b. Your usual hobbies, recreational or No difficulty sporting activities c. Getting into or out of the bath No difficulty d. Walking between rooms No difficulty e. Putting on your shoes or socks A little bit of difficulty f. Squatting Moderate difficulty g. Lifting an object, like a bag of A little bit of difficulty groceries from the floor h. Performing light activities around A little bit of difficulty your home i. Performing heavy activities around Quite a bit of difficulty your home j. Getting into or out of a car No difficulty k. Walking 2 blocks No difficulty l. Walking a mile A little bit of difficulty m. Going up or down 10 stairs (about 1 A little bit of difficulty flight of stairs) n. Standing for 1 hour No difficulty o. Sitting for 1 hour No difficulty p. Running on even ground Quite a bit of difficulty q. Running on uneven ground Quite a bit of difficulty r. Making sharp turns while running fast Quite a bit of difficulty s. Hopping Quite a bit of difficulty t. Rolling over in bed Quite a bit of difficulty LEFI Score Lower Extremity Functional Index Score 54 Outpatient Therapy Assessment Impairments Problems/Impairmments Palpation Tenderness,Impaired Range of Motion,Impaired Strength,Impaired Gait Pattern ,Impaired Walking,Impaired Household Care,Impaired Stair Climbing,Impaired Incline Stepping,Impaired Stepping on Uneven Surface,Impaired Squatting,Impaired Balance, Increased Edema,Wound Care Needs,Subjective C/O Pain, Impaired Self Care/Self Management Prognosis Rehab Potential Good Clinical Impression Consistent with Diagnosis Yes Short Term Goals Number of Weeks 3 Increase Range of Motion Yes: Improve L knee AROM to 0- 100, AAROM flex to 110 Increase Strength Yes: Improve LLE MMT by half grade to assist with gait/ function Improve Self Care/Self Management Yes Patient to be Ind w/ HEP Yes Retail Store Associate Goals Number of Weeks 6 Increase Range of Motion Yes: Improve L knee AROM to at least 0-115 Increase Strength Yes: Improve LLE MMT to 4+/5 grossly to assist with gait/ function Improve Gait Pattern without Assistive Yes: proper gait mechanics Device with LRD to decrease fall risk Improve Ability to Climb Stairs Yes: 1 flight with 1 HR to assist with community navigation Improve LEFI Score Yes: Improve score to 64/80 to improve overall QOL Decrease Edema Yes Decrease Subjective C/O Pain Yes: Improve pain at worst to 2-4/10 to improve overall QOL Patient to be Ind w/ Advanced HEP Yes Outpatient Therapy Plan of Care Treatment Plan May Include Therapeutic Exercise Including Home Yes Exercise Program Manual Therapy Techniques Yes Neuromuscular Re-education Yes Therapeutic Activities to Return to Yes Previous Functional/Work Level Gait Training Yes ADL/Self Care Education Yes Dry Needling Yes Thermal Modalities Yes Electrical Stimulation Yes Ultrasound/Phonophoresis Yes Iontophoresis Yes Orthotics/Bracing/Splinting Yes Vasopneumatic Compression Pump Yes Massage Yes Manual Lymphatic Drainage Yes Wound Care Yes Group Therapy for Medicare Yes Eval/Re-Eval Yes Frequency Times per week 2-3 Duration Number of Weeks 4-6 Addendums This patient is a candidate for social No or vocational rehab? Patient/Guardian verbally acknowledges Yes understanding of treatment program and consents to further treatment? Patient/Guardian verbally acknowledges Yes understanding of diagnosis, prognosis and goals for treatment? Eval Complexity PT Charges 02824 - Low Complexity Shoulder/Elbow Eval Shoulder Objective Measurements Elbow Objective Measurements PHYSICIAN CERTIFICATION: I certify the specified therapy services for Odalys Brink are required, authorized, and reviewed every 30 days.
--- NOTE | 2023-10-09 13:12 | HMH.PTPN ---
[facility] Rehab Progress Note Rehab Progress Note Start: 10/09/23 11:59 Freq: Status: Active Protocol: Document 10/09/23 13:05 SILVESTRE (Rec: 10/09/23 13:12 SILVESTRE [id number]) Rehab Progress Summary Visit Consistency Pt has been seen __ out of __ times 03/07 From ___ to ____ 09/19/23-10/09/23 Treatment Received Therapeutic Exercise Including Home Yes Exercise Program Therapeutic Activities to Return to Yes Previous Functional/Work Level Neuromuscular Re-education Yes Manual Therapy Techniques Yes Gait Training Yes ADL/Self Care Education Yes Electrical Stimulation Yes Vasopneumatic Compression Pump Yes Subjective Subjective Pt is 6 weeks s/p L TKA performed on 08/28/23. Incision well healing without signs of infection. Pt demonstrated L knee AROM 0-105, AAROM 0-110, and PROM 0-118 this date. Pt demonstated the ability to perform SLR without extension lag. Pt reported she performed community ambulation without SPC this weekend with good tolerance, denies instability or falls. Pt did report difficulty sleeping last night due to pain requiring taking a pain pill. Pt demonstrated antalgic gait without AD this date and encouraged to use SPC as needed for soreness. Compliance With Home Exercise Program Yes/No yes Assessment PT Progress Assessment Progressing as Expected Recommendation Recommendation Continue initial POC 2-3x/week PHYSICIAN CERTIFICATION: I certify the specified therapy services for Odalys Brink are required, authorized, and reviewed every 30 days.
--- NOTE | 2023-10-22 15:10 | HMH.RHREAS ---
Rehab Reassessment Rehab OP Re-assessment Start: 09/19/23 15:53 Freq: Status: Active Protocol: Document 10/18/23 16:00 LILLY (Rec: 10/22/23 15:09 LILLY [id number]) E-signed By Mode Alicia, PT Lower Extremity Functional Index Activities Today, do you or would you have any difficulty at all with: a.Any of your usual work, housework or A little bit of difficulty school activities b. Your usual hobbies, recreational or No difficulty sporting activities c. Getting into or out of the bath No difficulty d. Walking between rooms No difficulty e. Putting on your shoes or socks No difficulty f. Squatting Moderate difficulty g. Lifting an object, like a bag of A little bit of difficulty groceries from the floor h. Performing light activities around A little bit of difficulty your home i. Performing heavy activities around Quite a bit of difficulty your home j. Getting into or out of a car No difficulty k. Walking 2 blocks No difficulty l. Walking a mile A little bit of difficulty m. Going up or down 10 stairs (about 1 A little bit of difficulty flight of stairs) n. Standing for 1 hour No difficulty o. Sitting for 1 hour No difficulty p. Running on even ground Quite a bit of difficulty q. Running on uneven ground Quite a bit of difficulty r. Making sharp turns while running fast Quite a bit of difficulty s. Hopping Quite a bit of difficulty t. Rolling over in bed A little bit of difficulty LEFI Score Lower Extremity Functional Index Score 57 Rehab Re-assessment Subjective Subjective Patient reports 50% improvement since start of care. Objective Objective Notes AROM: flx 106; ext -7 MMT: 4+/5 grossly all hip/ thigh mm Pain: 3/10 pain rating today; 6/10 at worst over past week Neuro: WNL Assessment Progress Assessment Progressing as Expected Assessment Notes Patient would benefit from continuing with skilled PT interventions on order to address functional limitations with all standing/ambulatory activities. Patient goals met STG 2,3,4; LTG 2 Goals Not Met STG 1; all other LTG's Revised Goals NA Plan Plan Continue with current POC. Frequency of Therapy 2x/week Duration of therapy 4 weeks Time and Billing Re-Eval Time 16 Re-Eval Billing Units 1 PHYSICIAN CERTIFICATION: I certify the specified therapy services for Odalys E [place] are required, authorized, and reviewed every 30 days.
--- NOTE | 2023-11-14 14:39 | HMH.RHREAS ---
Rehab Reassessment Rehab OP Re-assessment Start: 09/19/23 15:53 Freq: Status: Active Protocol: Document 11/14/23 12:58 MIRIAMVALENTINE (Rec: 11/14/23 14:39 SILVESTRE [id number]) E-signed By Mamie Bledsoe PT Lower Extremity Functional Index Activities Today, do you or would you have any difficulty at all with: a.Any of your usual work, housework or No difficulty school activities b. Your usual hobbies, recreational or No difficulty sporting activities c. Getting into or out of the bath No difficulty d. Walking between rooms No difficulty e. Putting on your shoes or socks A little bit of difficulty f. Squatting A little bit of difficulty g. Lifting an object, like a bag of No difficulty groceries from the floor h. Performing light activities around A little bit of difficulty your home i. Performing heavy activities around No difficulty your home j. Getting into or out of a car No difficulty k. Walking 2 blocks No difficulty l. Walking a mile A little bit of difficulty m. Going up or down 10 stairs (about 1 No difficulty flight of stairs) n. Standing for 1 hour No difficulty o. Sitting for 1 hour No difficulty p. Running on even ground No difficulty q. Running on uneven ground A little bit of difficulty r. Making sharp turns while running fast A little bit of difficulty s. Hopping A little bit of difficulty t. Rolling over in bed No difficulty LEFI Score Lower Extremity Functional Index Score 73 Rehab Re-assessment Subjective Subjective Pt reports she tripped over a cart on 11/03/23 landing on her left side and hitting her head , denies LOC. Pt states she went to the ED and had imaging of her head without significant findings. Pt reports soreness of her left side since. Pt reports her L knee is doing well overall. Pt reports only stiffness of the knee in the morning time and minimal discomfort with traversing stairs reciprocally . Pt reports she is tolerating work well without restrictions and resting as needed. Pt reports she was discharged from her surgeon. Objective Objective Notes L knee edema: prox incision 43 .5 cm, joint line 40 cm, distal incision 37 cm L knee AROM: 0-3-115 LLE MMT: 4+/5 grossly Assessment Progress Assessment Progressing as Expected Assessment Notes Pt has attended 16 PT visits consisting of aerobic exercise , knee mobility, LE stretching /strengthening, balane/ proprioception training, manual therapy and modalities with good tolerance. Pt demonstrated improved L knee AROM, strength, edema and LEFS score this date. Pt met most PT goals and is appropriate to discharge to independent HEP. Patient goals met ST/4 LT/8 Goals Not Met knee extension AROM Revised Goals n/a Plan Plan Discharge to independent HEP Time and Billing Re-Eval Time 12 Re-Eval Billing Units 1 PHYSICIAN CERTIFICATION: I certify the specified therapy services for Odalys Brink are required, authorized, and reviewed every 30 days.
== END 2023-11-14 14:00 | disposition home or self-care (01) ==
LOC: PT 13:00
PROVIDERS: PCP Family Medicine; Visit Provider Orthopaedic Surgery
DX: M25.562 Pain in left knee (principal); Z96.652 Presence of left artificial knee joint
CPT/HCPCS: 97010; 97014; 97110; 97140; 97163; 97164; 97530; G0283

== ENCOUNTER 2024-01-03 15:26 | Emergency (ER) | payer MEDICARE, OTHER, SELFPAY ==
[2024-01-03 15:40] VITALS: BP 133/77; PULSE 77; RESP 18; TEMP 36.6; O2SAT 97; BMI 28.4
--- NOTE | 2024-01-03 15:40 | XR_ITS ---
FINAL REPORT CLINICAL HISTORY: fall, left knee pain COMPARISON: 09/12/2023 FINDINGS: Three views of the left knee reveal left knee arthroplasty with intact hardware. There is no evidence of fracture or dislocation. The bony alignment is normal. There is no evidence of joint effusion. No localized soft tissue abnormality is seen. IMPRESSION: No acute abnormality identified. Reviewed, Interpreted and Dictated by Po Thurman III, MD Transcribed by Marci Law Authenticated and [facility]
--- NOTE | 2024-01-03 15:55 | EXP.UTC ---
Discharge Plan Disposition Patient Disposition: Home, Self-Care Condition: Good Prescriptions Prescriptions: No Action Xarelto 20 mg tablet 20 mg PO DAILY Qty: 30 5RF Rx Instructions: must administer with evening meal citalopram [Celexa] 20 mg tablet 20 mg PO DAILY Qty: 90 2RF omeprazole 20 mg capsule,delayed release(DR/EC) 20 mg PO DAILY Qty: 90 1RF estradiol 0.01 % (0.1 mg/gram) cream 1 applic vaginal DAILY Qty: 42.5 2RF Rx Instructions: blueberry sized amount twice weekly levothyroxine 75 mcg tablet 75 mcg PO DAILY Qty: 90 1RF pravastatin 40 mg tablet 40 mg PO DAILY Referrals Follow up/Referrals: Sanford Craven DO [Staff Physician] - See instructions Carson Cabrera MD [Primary Care Provider] - See instructions Activity Restrictions/Add. Instructions Additional Instructions/Restrictions: Rest the extremity, Wear the trayn wrap for compression, Elevate the extremity as tolerated while you are resting. Follow up with Dr. Craven (orthopedics). I put in a referral but you need to call his office and schedule an appointment. Follow up with your regular doctor. GO TO THE ER FOR ANY WORSENING SYMPTOMS Clinical Impressions Clinical Impression: Left knee pain, Fall Instructions Patient Instructions: DI for Knee Pain Discharge ED Provider: Lizandro Billings [facility] General Stated complaint: AO12/27 fall LT knee inj Mode of Arrival: Ambulatory Source of Information: Patient Limitations: No Limitations Time Seen by Provider: 01/03/24 15:55 HEENT Symptoms (Recalled from RN notes): No Resp Symptoms (Recalled from RN notes): No Skin Symptoms (Recalled from RN notes): No MS Symptoms (Recalled from RN notes): Yes Functional Status (Recalled from RN notes): n/a History of Present Illness Provider Complaint: Pt fell at home on 12/28/2023 and hurt left knee and want to get it look at. She denies hitting head. Related Data Home Medications Medication Instructions Recorded Confirmed pravastatin 40 mg tablet 40 mg PO DAILY Cholesterol 08/28/23 01/03/24 Previous Rx's Medication Instructions Recorded citalopram 20 mg tablet (Celexa) 20 mg PO DAILY Depression #90 tabs 09/07/23 omeprazole 20 mg capsule,delayed 20 mg PO DAILY GERD #90 caps 09/07/23 release levothyroxine 75 mcg tablet 75 mcg PO DAILY thyroid #90 tabs 09/12/23 rivaroxaban 20 mg tablet (Xarelto) 20 mg PO DAILY #30 tabs 09/14/23 estradiol 0.01% (0.1 mg/gram) 1 applic vaginal DAILY #42.5 grams 11/07/23 vaginal cream Allergies Allergy/AdvReac Type Severity Reaction Status Date / Time No Known Allergies Allergy Verified 01/03/24 15:45 Worker's Comp Is this a Worker's Comp case?: [facility] Disclaimer: The information contained in this section may have been updated after the patient was seen, as this information can be updated by other users. Medical History Elevated brain natriuretic peptide (BNP) level Elevated troponin Bilateral pulmonary embolism Acute respiratory failure with hypoxia Acute hypoxemic respiratory failure Pulmonary emboli History of gastroesophageal reflux (GERD) History of hyperlipidemia History of colon cancer Abnormal electrocardiogram [ECG] [EKG] Encounter for pre-operative cardiovascular clearance Pessary maintenance Encounter for gynecological examination (general) (routine) without abnormal findings Incomplete uterovaginal prolapse Cystocele Prolapse of bladder Hypothyroid Depression Anxiety Cough URI (upper respiratory infection) Acute bronchitis Bronchitis Cancer Diabetes mellitus, type 2 History of stroke Piriformis syndrome of right side Right thigh pain Right hip pain Fall Sinusitis Contusion of hip Muscle spasm Low back pain UTI (urinary tract infection) Leukocytosis Surgical History 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 History of repair of atrial septal defect H/O partial thyroidectomy Family History Other No significant family history Social History Smoking Status: Never smoker second hand exposure: No alcohol intake: never substance use type: denies use current occupational status: employed and other Travel in the last 8 weeks: None household members: family housing: house current occupational exposures/hazards: No caffeine: Yes ROS Obtained: Yes All systems reviewed & no additional complaints except as documented Constitutional Constitutional: Denies chills and Denies fever(s) Eyes Eyes: Denies eye discharge ENT Ears, Nose, Mouth, and Throat: Denies dizziness, Denies otalgia and Denies sore throat Cardiovascular Cardiovascular: Denies chest pain Respiratory Respiratory: Denies shortness of breath, Denies chest congestion, Denies cough, Denies stridor and Denies wheezing Gastrointestinal Gastrointestingal: Denies nausea or vomiting Musculoskeletal Musculoskeletal: Reports as per HPI Integumentary/Breasts Skin/Breast: Denies rash Neurologic Neurologic: Denies dizziness and Denies paresthesias Allergic/Immunologic Allergic/Immunologic: Denies wheezing Physical Exam General General appearance: alert and in no apparent distress Head Head exam: atraumatic, normocephalic and normal inspection Eye Eye exam: Present normal appearance, PERRL and EOMI ENT ENT exam: Present normal exam, normal oropharynx, mucous membranes moist, TM's normal bilaterally and normal external ear exam Neck Neck exam: Present normal inspection, full ROM and trachea midline; Absent meningismus or lymphadenopathy Chest Chest inspection: Present normal inspection and symmetric chest wall rise; Absent tenderness Respiratory Respiratory exam: Present normal lung sounds bilaterally; Absent respiratory distress Cardiovascular Cardiovascular exam: Present regular rate and normal rhythm; Absent JVD Abdominal Exam Abdominal exam: Present soft and normal bowel sounds; Absent distention, tenderness or guarding Extremities Exam Extremities exam: Present normal capillary refill; Absent calf tenderness Expanded Lower Extremity Exam Left: Hip/Pelvis exam: Present normal inspection and full ROM; Absent tenderness Upper leg exam: Present normal inspection and full ROM; Absent tenderness Knee exam: Present full ROM, tenderness, swelling, effusion and knee extension intact; Absent abrasion, laceration, ecchymosis, deformity, crepitus, dislocation, erythema, anterior drawer sign, posterior draw sign, pain with valgus, laxity with valgus, pain with varus or laxity with varus Lower leg exam: Present normal inspection, full ROM and Achilles tendon intact; Absent tenderness or Homans' sign Ankle exam: Present normal inspection and full ROM; Absent tenderness Foot/toe exam: Present normal inspection and full ROM; Absent tenderness Neurovascular/Tendon exam: Present normal capillary refill, normal 2-point discrimination and normal fine/light touch; Absent pulse deficit, motor deficit, sensory deficit, tendon deficit, extremity cold to touch or pallor Gait: observed and limited by pain Back Exam Back exam: Present normal inspection; Absent tenderness Neurological Exam Neurological exam: Present alert and oriented X3 Psychiatric Psychiatric exam: Present normal affect and normal mood Skin Skin exam: Present warm, dry, intact and normal color Lymphatic Lymphatic Findings: no adenopathy Medical Decision Making Medical Records Medical records reviewed: No I reviewed the patient's medical records. [place] Inquiry Pt receiving controlled substance: No Vital Signs: 01/03/24 15:40 Temperature 97.9 F Temperature Source Oral Pulse Rate [Right Radial] 77 Respiratory Rate 18 Blood Pressure [Right Arm] 133/77 Blood Pressure Mean [Right Arm] 95 Blood Pressure Source [Right Arm] Automatic Cuff Blood Pressure Position [Right Arm] Sitting 02 Sat by Pulse Oximetry 97 Oxygen Delivery Method Room Air Orders (Tests/Meds): ORDERS Category Date Time Status Knee XR left 3 views [XR knee LT 3V] Stat Exams 01/03/24 15:40 Taken Radiology Data #1: Image(s): Knee Image Reviewed: Yes I reviewed the patient's radiology image and Yes I have reviewed radiologist's interpretation Preliminary Findings: No Fracture Seen Accession No. : [id number] Patient Name / ID : EFREM Richard / [id number] Exam Date : 01/03/2024 15:37:18 ( Final ) Study Comment : Sex / Age : F / 83Y Creator : SUSHILA THURMAN MD Dictator : Residential Building Inspector : Nurse Navigator : SUSHILA THURMAN MD Approver2 : Report Date : 01/03/2024 16:30:37 My Comment : FINAL REPORT CLINICAL HISTORY: fall, left knee pain COMPARISON: 09/12/2023 FINDINGS: Three views of the left knee reveal left knee arthroplasty with intact hardware. There is no evidence of fracture or dislocation. The bony alignment is normal. There is no evidence of joint effusion. No localized soft tissue abnormality is seen. IMPRESSION: No acute abnormality identified. Reviewed, Interpreted and Dictated by Sushila Thurman III, MD Transcribed by Marci Law Authenticated and [facility]
[2024-01-03 16:36] VITALS: BP 138/77; PULSE 77; RESP 18; TEMP 36.6; O2SAT 97
== END 2024-01-03 16:35 | disposition home or self-care (01) ==
PROVIDERS: Emergency Provider Nurse Practitioner Family; PCP Family Medicine
DX: M25.562 Pain in left knee (principal); W19.XXXA Unspecified fall, initial encounter
CPT/HCPCS: 73562; 99212; 99213; G0463

== ENCOUNTER 2024-02-26 14:49 | Outpatient (CLI) | payer MEDICARE, OTHER, SELFPAY ==
[2024-02-26 15:48] LABS: D-Dimer 0.44 ug/mL (0.0-0.5)
== END 2024-02-26 23:59 | disposition home or self-care (01) ==
LOC: LAB 14:51
PROVIDERS: PCP Family Medicine; Visit Provider Internal Medicine Pulmonary Disease
DX: I26.99 Other pulmonary embolism without acute cor pulmonale (principal); R06.02 Shortness of breath
CPT/HCPCS: 36415; 85378

== ENCOUNTER 2024-07-28 09:24 | Emergency (ER) | payer MEDICARE, OTHER, SELFPAY ==
--- NOTE | 2024-07-28 10:29 | ED_ITS ---
Discharge Plan Disposition Patient Disposition: Home, Self-Care Condition: Good Prescriptions Prescriptions: New methylprednisolone 4 mg Tablets,Dose Pack 4 mg PO DIRECTED 6 Days Qty: 21 0RF Rx Instructions: Take 1 pack as directed for 6 days No Action Xarelto 20 mg tablet 20 mg PO DAILY Qty: 30 5RF Rx Instructions: must administer with evening meal estradiol 0.01 % (0.1 mg/gram) cream 1 applic vaginal DAILY Qty: 42.5 2RF Rx Instructions: blueberry sized amount twice weekly azithromycin 250 mg tablet See Rx Instructions PO .COMPLEX Qty: 6 0RF Rx Instructions: For 250 mg dose pack: take 500 mg today (day 1), then 250 mg for 4 days (days 2-5) PO codeine-guaifenesin 10-100 mg/5 mL liquid 10 ml PO Q4-6H PRN (Reason: cough) Qty: 120 1RF pravastatin 40 mg tablet See Rx Instructions .ROUTE .COMPLEX Qty: 90 1RF Dose Instruction: TAKE 1 TABLET BY MOUTH AT BEDTIME Rx Instructions: TAKE 1 TABLET BY MOUTH AT BEDTIME levothyroxine 75 mcg tablet See Rx Instructions .ROUTE .COMPLEX Qty: 90 0RF Dose Instruction: TAKE 1 TABLET BY MOUTH ONCE DAILY Rx Instructions: TAKE 1 TABLET BY MOUTH ONCE DAILY omeprazole 20 mg capsule,delayed release(DR/EC) 20 mg PO DAILY Qty: 90 0RF citalopram 20 mg tablet 20 mg PO DAILY 90 Days Qty: 90 0RF Referrals Follow up/Referrals: Carson Cabrera MD [Primary Care Provider] - See instructions Activity Restrictions/Add. Instructions Additional Instructions/Restrictions: Drink plenty of fluids. Take tylenol for pain or fever. Continue the medications that your are on. Follow up with your regular doctor. GO TO THE ER FOR ANY WORSENING SYMPTOMS Clinical Impressions Clinical Impression: Acute bronchitis Instructions Patient Instructions: Acute Bronchitis, DI for Acute Bronchitis, Methylprednisolone Print Language Print Language: German Discharge ED Provider: Lizandro Billings [facility] – [place] HPI General Stated complaint: medina cough Time Seen by Provider: 07/28/24 10:41 Related Data Previous Rx's ?Medication ?Instructions ?Recorded rivaroxaban 20 mg tablet (Xarelto) 20 mg PO DAILY #30 tabs 09/14/23 pravastatin 40 mg tablet See Rx Instructions .Route 05/01/24 .COMPLEX #90 tabs levothyroxine 75 mcg tablet See Rx Instructions .Route 06/06/24 .COMPLEX #90 tabs omeprazole 20 mg capsule,delayed 20 mg PO DAILY GERD #90 caps 06/20/24 release citalopram 20 mg tablet 20 mg PO DAILY 90 days #90 tabs 06/25/24 estradiol 0.01% (0.1 mg/gram) 1 applic vaginal DAILY #42.5 grams 07/16/24 vaginal cream azithromycin 250 mg tablet See Rx Instructions PO .COMPLEX #6 07/25/24 tabs codeine 10 mg-guaifenesin 100 mg/5 10 ml PO Q4-6H PRN cough #120 mL 07/25/24 mL oral liquid methylprednisolone 4 mg tablets in 4 mg PO DIRECTED 6 days #21 tabs 07/28/24 a dose pack Allergies Allergy/AdvReac Type Severity Reaction Status Date / Time No Known Allergies Allergy Verified 07/25/24 14:03 [facility] Disclaimer: The information contained in this section may have been updated after the patient was seen, as this information can be updated by other users. Medical History Incomplete uterovaginal prolapse Cystocele Pessary maintenance Elevated brain natriuretic peptide (BNP) level Elevated troponin Bilateral pulmonary embolism Acute respiratory failure with hypoxia Acute hypoxemic respiratory failure Pulmonary emboli History of gastroesophageal reflux (GERD) History of hyperlipidemia History of colon cancer Abnormal electrocardiogram [ECG] [EKG] Encounter for pre-operative cardiovascular clearance Encounter for gynecological examination (general) (routine) without abnormal findings Prolapse of bladder Hypothyroid Depression Anxiety Cough URI (upper respiratory infection) Acute bronchitis Bronchitis Cancer Diabetes mellitus, type 2 History of stroke Piriformis syndrome of right side Right thigh pain Right hip pain Fall Sinusitis Contusion of hip Muscle spasm Low back pain UTI (urinary tract infection) Leukocytosis Surgical History 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 History of repair of atrial septal defect H/O partial thyroidectomy Family History Other No significant family history Social History Smoking Status: Never smoker second hand exposure: No alcohol intake: never substance use type: denies use current occupational status: employed and other Travel in the last 8 weeks: None household members: family housing: house current occupational exposures/hazards: No caffeine: Yes Have you lived/traveled outside [place] in past 30 days?: No Contact w/someone who lives/traveled outside [place] past 30 days?: No Exposure to someone with infectious disease in past 14 days?: No Do you have a fever (greater than 100.4 F or 38 C)?: No Have you tested positive for COVID-19: No Exposed to someone with COVID-19 in past 14 days?: No Do you have a sore throat?: No Do you have a cough?: Yes Do you have any weakness?: No Do you have any diarrhea?: No Are you experiencing any unusual bleeding?: No Do you have any muscle aches/pain?: No Do you have any abdominal pain?: No Are you experiencing loss of taste or smell?: No ROS Obtained: Yes All systems reviewed & no additional complaints except as documented Constitutional Constitutional: Reports poor appetite Eyes Eyes: Reports system reviewed and no additional complaints, except as documented ENT Ears, Nose, Mouth, and Throat: Reports as per HPI Cardiovascular Cardiovascular: Reports system reviewed and no additional complaints, except as documented and Denies chest pain Respiratory Respiratory: Denies shortness of breath, Reports chest congestion, Reports cough, Denies stridor and Denies wheezing Gastrointestinal Gastrointestingal: Reports system reviewed and no additional complaints, except as documented; Denies abdominal pain, diarrhea or vomiting Musculoskeletal Musculoskeletal: Reports system reviewed and no additional complaints, except as documented and Denies arthralgias Integumentary/Breasts Skin/Breast: Reports system reviewed and no additional complaints, except as documented and Denies rash Neurologic Neurologic: Denies paresthesias Allergic/Immunologic Allergic/Immunologic: Denies wheezing Physical Exam General General appearance: alert and in no apparent distress Eye Eye exam: Present normal appearance, PERRL and EOMI ENT ENT exam: Present mucous membranes moist and normal external ear exam Expanded ENT Exam External ear exam: Present normal external inspection TM/Canal exam: Bilateral TM: erythema and bulging Nose exam: Absent sinus tenderness Nasal speculum exam: Bilateral: normal Mouth exam: Present normal external inspection; Absent drooling Teeth exam: Present normal inspection Throat exam: Present tonsillar erythema and tonsillomegaly Neck Neck exam: Present normal inspection, full ROM and trachea midline; Absent tenderness, lymphadenopathy or thyromegaly Chest Chest inspection: Present normal inspection and symmetric chest wall rise; Absent tenderness or rash Respiratory Respiratory exam: Present normal lung sounds bilaterally; Absent respiratory distress, wheezes, stridor or accessory muscle use Cardiovascular Cardiovascular exam: Present regular rate, normal rhythm and normal heart sounds Abdominal Exam Abdominal exam: Present soft; Absent distention, tenderness, guarding, rebound or rigidity Extremities Exam Extremities exam: Present normal inspection, full ROM and normal capillary refill; Absent tenderness or calf tenderness Back Exam Back exam: Present normal inspection and full ROM; Absent tenderness Neurological Exam Neurological exam: Present alert and oriented X3 Psychiatric Psychiatric exam: Present normal affect and normal mood Skin Skin exam: Present warm, dry, intact and normal color Lymphatic Lymphatic Findings: no adenopathy Medical Decision Making Medical Records Medical records reviewed: No I reviewed the patient's medical records. Screening: Per USPSTF and CDC recommendations, given the prevalence of disease in our region, it is our hospital?s policy to screen for HIV and viral Hepatitis for all patients aged 18 and over and those with ongoing risk factors. [place] Inquiry Pt receiving controlled substance: No
--- NOTE | 2024-07-28 10:35 | XR_ITS ---
PROCEDURE INFORMATION: Exam: XR Chest Exam date and time: 07/28/2024 10:57 AM Age: 84 years old Clinical indication: Cough and shortness of breath TECHNIQUE: Imaging protocol: Radiologic exam of the chest. Views: 2 views. COMPARISON: CT ANGIO CHEST PE PROTOCOL 08/30/2023 10:37 PM FINDINGS: Lungs: The lungs are clear. Pleural spaces: No pneumothorax or pleural effusion. Heart/Mediastinum: Cardiomediastinal silhouette is unremarkable. Left atrial appendage occlusion device is present. Bones/joints: No acute osseous or soft tissue abnormality. IMPRESSION: No acute cardiopulmonary abnormality.
[2024-07-28 10:38] VITALS: BP 158/80; PULSE 85; RESP 18; TEMP 36.7; O2SAT 95; BMI 28.4
[2024-07-28 11:37] VITALS: BP 158/80; PULSE 85; RESP 18; TEMP 36.7
== END 2024-07-28 11:43 | disposition home or self-care (01) ==
PROVIDERS: Emergency Provider Nurse Practitioner Family; PCP Family Medicine
DX: J40 Bronchitis, not specified as acute or chronic (principal); R05.9 Cough, unspecified; R51.9 Headache, unspecified; R63.8 Other symptoms and signs concerning food and fluid intake
CPT/HCPCS: 71046; 99212; G0381

== ENCOUNTER 2024-09-30 17:28 | Emergency (ER) | payer MEDICARE, OTHER, SELFPAY ==
[2024-09-30] VITALS (7 sets, daily range): BP systolic 191–242; BP diastolic 91–110; PULSE 59–99; RESP 16–20; TEMP 36.7–36.9; O2SAT 95–98; BMI 28.1
--- NOTE | 2024-09-30 18:54 | ED_ITS ---
<Statement entered by Mamie Monaco DO - 10/01/24 00:25> I was consulted by the EVIE, and we discussed the complexity of the problems being addressed. I approved the treatment and management plan for this patient's care in the emergency department, thus performing a substantive portion of the medical decision making. Considered obtaining CT head and C- spine given age and fall, however patient never truly fell so these were deferred. Mamie Monaco DO Discharge Plan Disposition Patient Disposition: Home, Self-Care Condition: Good Prescriptions Prescriptions: New lidocaine 5 % adhesive patch,medicated 1 patch topical DAILY Qty: 30 0RF Rx Instructions: leave on most painful area for up to 12 hrs No Action Xarelto 20 mg tablet 20 mg PO DAILY Qty: 30 5RF Rx Instructions: must administer with evening meal azithromycin 250 mg tablet See Rx Instructions PO .COMPLEX Qty: 6 0RF Rx Instructions: For 250 mg dose pack: take 500 mg today (day 1), then 250 mg for 4 days (days 2-5) PO pravastatin 40 mg tablet See Rx Instructions .ROUTE .COMPLEX Qty: 90 1RF Dose Instruction: TAKE 1 TABLET BY MOUTH AT BEDTIME Rx Instructions: TAKE 1 TABLET BY MOUTH AT BEDTIME levothyroxine 75 mcg tablet See Rx Instructions .ROUTE .COMPLEX Qty: 90 0RF Dose Instruction: TAKE 1 TABLET BY MOUTH ONCE DAILY Rx Instructions: TAKE 1 TABLET BY MOUTH ONCE DAILY omeprazole 20 mg capsule,delayed release(DR/EC) 20 mg PO DAILY Qty: 90 0RF Referrals Follow up/Referrals: Carson Cabrera MD [Primary Care Provider] - See instructions Activity Restrictions/Add. Instructions Additional Instructions/Restrictions: I have recommended that you follow-up with your PCP for management of your high blood pressure. I have sent a Lidoderm patch into your pharmacy. If you have continued new or worsening signs or symptoms follow-up with your PCP or return back to the ER. Clinical Impressions Clinical Impression: Contusion of lumbar spinal region, Hypertension, uncontrolled Print Language Print Language: Gu[place] Discharge ED Provider: Mamie Monaco General Adult HPI General Chief complaint: Fall Stated complaint: AO 09/27/24 1630 Injury left ribs Time Seen by Provider: 09/30/24 18:54 Mode of Arrival: Ambulatory Source of Information: Patient Description of Symptoms (Recalled from ER Triage Doc. by RN): States she fell on Monday injuring the left side of her ribs. History of Present Illness HPI narrative: Patient presents for evaluation of left posterior lateral lumbar pain. Patient was washing her car on Monday and tripped falling backwards into a wooden handrail. She did not actually fall to the ground did not strike her head denies any other injury. However she has had increasing pain since Monday morning in the same area. She states its only gotten worse and is worse with taking a deep breath hurts with any movement but she denies chest pain shortness of breath fever chills hemoptysis hematochezia melena nausea vomiting diarrhea. She did not strike her head. Patient actually worked a full shift today and bending and twisting makes it extraordinarily worse. She denies any numbness or tingling has no focal neurologic deficits. Related Data Previous Rx's ?Medication ?Instructions ?Recorded rivaroxaban 20 mg tablet (Xarelto) 20 mg PO DAILY #30 tabs 09/14/23 pravastatin 40 mg tablet See Rx Instructions .Route 05/01/24 .COMPLEX #90 tabs azithromycin 250 mg tablet See Rx Instructions PO .COMPLEX #6 07/25/24 tabs levothyroxine 75 mcg tablet See Rx Instructions .Route 09/05/24 .COMPLEX #90 tabs omeprazole 20 mg capsule,delayed 20 mg PO DAILY GERD #90 caps 09/19/24 release lidocaine 5 % topical patch 1 patch topical DAILY #30 ea 09/30/24 Allergies Allergy/AdvReac Type Severity Reaction Status Date / Time No Known Allergies Allergy Verified 07/25/24 14:03 [facility] Disclaimer: The information contained in this section may have been updated after the patient was seen, as this information can be updated by other users. Medical History Incomplete uterovaginal prolapse Cystocele Pessary maintenance Elevated brain natriuretic peptide (BNP) level Elevated troponin Bilateral pulmonary embolism Acute respiratory failure with hypoxia Acute hypoxemic respiratory failure Pulmonary emboli History of gastroesophageal reflux (GERD) History of hyperlipidemia History of colon cancer Abnormal electrocardiogram [ECG] [EKG] Encounter for pre-operative cardiovascular clearance Encounter for gynecological examination (general) (routine) without abnormal findings Prolapse of bladder Hypothyroid Depression Anxiety Cough URI (upper respiratory infection) Acute bronchitis Bronchitis Cancer Diabetes mellitus, type 2 History of stroke Piriformis syndrome of right side Right thigh pain Right hip pain Fall Sinusitis Contusion of hip Muscle spasm Low back pain UTI (urinary tract infection) Leukocytosis Surgical History 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 History of repair of atrial septal defect H/O partial thyroidectomy Family History Other No significant family history Social History Smoking Status: Never smoker second hand exposure: No alcohol intake: never substance use type: denies use current occupational status: employed and other Travel in the last 8 weeks: None household members: family housing: house current occupational exposures/hazards: No caffeine: Yes Have you lived/traveled outside [place] in past 30 days?: No Contact w/someone who lives/traveled outside US past 30 days?: No Exposure to someone with infectious disease in past 14 days?: No Do you have a fever (greater than 100.4 F or 38 C)?: No Have you tested positive for COVID-19: No Exposed to someone with COVID-19 in past 14 days?: No Do you have a sore throat?: No Do you have a cough?: No Do you have any weakness?: No Do you have any diarrhea?: No Are you experiencing any unusual bleeding?: No Do you have any muscle aches/pain?: No Do you have any abdominal pain?: No Are you experiencing loss of taste or smell?: No Other Medical History Have you received the Flu Vaccine for this season: No Have you received the Pneumonia Vaccine: Yes ROS Obtained: Yes Systems reviewed as appropriate & no additional complaints except as documented Physical Exam General General appearance: alert and in no apparent distress Respiratory Respiratory exam: Present normal lung sounds bilaterally Cardiovascular Cardiovascular exam: Present regular rate Neurological Exam Neurological exam: Present alert and oriented X3 Medical Decision Making Medical Records Medical records reviewed: Yes I reviewed the patient's medical records. Screening: Per USPSTF and CDC recommendations, given the prevalence of disease in our region, it is our hospital?s policy to screen for HIV and viral Hepatitis for all patients aged 18 and over and those with ongoing risk factors. [place] Inquiry Pt receiving controlled substance: No Vital Signs: 09/30/24 17:29 09/30/24 19:00 09/30/24 20:09 Temperature 98.0 F Temperature Source Oral Pulse Rate 67 68 Pulse Rate [Radial] 75 Respiratory Rate 16 Blood Pressure 216/110 H 221/93 H Blood Pressure [Right Arm] 242/95 H Blood Pressure Mean Blood Pressure Mean [Right Arm] 144 Blood Pressure Source [Right Arm] Automatic Cuff Blood Pressure Position [Right Arm] Sitting 02 Sat by Pulse Oximetry 95 98 97 Oxygen Delivery Method Room Air 09/30/24 20:30 09/30/24 21:01 09/30/24 21:30 Temperature Temperature Source Pulse Rate 63 61 59 L Pulse Rate [Radial] Respiratory Rate Blood Pressure 219/96 H 200/100 H 191/91 H Blood Pressure [Right Arm] Blood Pressure Mean 137 133 125 Blood Pressure Mean [Right Arm] Blood Pressure Source [Right Arm] Blood Pressure Position [Right Arm] 02 Sat by Pulse Oximetry 97 96 98 Oxygen Delivery Method Lab Data Lab results reviewed: Yes I reviewed the patient's lab results. Orders (Tests/Meds): ED MEDICATIONS Discontinued Medications Generic Name Dose Route Start Last Admin Trade Name Freq PRN Reason Stop Dose Admin Acetaminophen 1,000 mg 09/30/24 19:01 09/30/24 19:19 Acetaminophen 500mg Tab PO 09/30/24 19:02 1,000 mg ONCE ONE Administration Lidocaine 1 each 09/30/24 19:01 09/30/24 19:19 Lidocaine 5% Transdermal Patch TP 09/30/24 19:02 1 each ONCE ONE Administration Oxycodone HCl 5 mg 09/30/24 19:01 09/30/24 19:23 Oxycodone 5mg Immediate Release Tablet PO 09/30/24 19:02 5 mg ONCE ONE Administration ORDERS Category Date Time Status CT abdomen wo con Stat Cat Scan 09/30/24 19:[address] chest wo con Stat Cat Scan 09/30/24 19:00 Completed Medical Decision Narrative: In summary patient is a 84-year-old female who presents to the emergency department for evaluation of chest wall trauma. Patient is initially significantly hypertensive with a blood pressure of 242/95 recorded with a pulse of 75 respiratory rate of 16 satting at 95% on room air normal sinus rhythm on the bedside monitor upon arrival, afebrile at 98. Physical exam is tender to palpation in the posterior lateral chest wall at the lumbar spine level but actually more towards the axilla. She does have ecchymosis in her left flank but I can palpate no bony deformity. Breath sounds are clear and equal bila terally to the bases without adventitious sounds. Patient's abdomen is soft nontender no rebound or guarding or rigidity. Differential diagnosis includes contusion versus muscle spasm versus ribs versus rib fracture versus vertebral injury etc. Initial workup will be conducted with CT scan noncontrasted of the chest abdomen.. Initial interventions include Tylenol and oxycodone for now. Initial workup reviewed by me and my informal interpretation of her imaging shows no evidence of acute bony injury or any other process prior to radiology read. Upon repeat evaluation patient had significant improvement in her pain after initial intervention and her blood pressures come down to 191/91. Given this patient is appropriate for discharge with a prescription sent to her pharmacy for Lidoderm, follow-up with her PCP closely for recheck of her blood pressure and management if needed. Critical Care Critical Care Time Critical Care Time: No
--- NOTE | 2024-09-30 19:00 | CT_ITS ---
PROCEDURE INFORMATION: Exam: CT Abdomen Without Contrast Exam date and time: 09/30/2024 9:14 PM Age: 84 years old Clinical indication: Injury or trauma; Fall; Additional info: Fall, left lateral lumbar injury TECHNIQUE: Imaging protocol: Computed tomography of the abdomen without contrast. Radiation optimization: All CT scans at this facility use at least one of these dose optimization techniques: automated exposure control; mA and/or kV adjustment per patient size (includes targeted exams where dose is matched to clinical indication); or iterative reconstruction. COMPARISON: CT CHEST WO CON 09/30/2024 9:11 PM FINDINGS: Liver: Normal. No mass. Gallbladder and biliary ducts: Tiny gallstones/debris without wall thickening. Pancreas: Normal. No ductal dilation. Spleen: Normal. No splenomegaly. Adrenal glands: Normal. No mass. Kidneys: Normal. No hydronephrosis. Stomach and bowel: Visualized stomach and bowel are unremarkable. No obstruction. No mucosal thickening. Intraperitoneal space: Unremarkable. No free air. No significant fluid collection. Vasculature: Atherosclerotic calcification of abdominal aorta without aneurysm. Lymph nodes: Unremarkable. No enlarged lymph nodes. Bones/joints: Unremarkable. No acute fracture. No dislocation. Soft tissues: Fat containing periumbilical hernia. IMPRESSION: 1. No acute findings identified. 2. Tiny gallstones/debris. Note: Pelvis not imaged.
--- NOTE | 2024-09-30 19:00 | CT_ITS ---
PROCEDURE INFORMATION: Exam: CT Chest Without Contrast; Diagnostic Exam date and time: 09/30/2024 9:11 PM Age: 84 years old Clinical indication: Injury or trauma; Fall; Additional info: Fall, left lateral lumbar injury TECHNIQUE: Imaging protocol: Diagnostic computed tomography of the chest without contrast. Radiation optimization: All CT scans at this facility use at least one of these dose optimization techniques: automated exposure control; mA and/or kV adjustment per patient size (includes targeted exams where dose is matched to clinical indication); or iterative reconstruction. COMPARISON: CT ANGIO CHEST PE PROTOCOL 08/30/2023 10:37 PM FINDINGS: Lungs: Unremarkable. No consolidation. No masses. Pleural spaces: Unremarkable. No pneumothorax. No pleural effusion. Heart: Unremarkable. No cardiomegaly. No pericardial effusion. Coronary arteries: Mild atherosclerotic calcification of left anterior descending coronary artery Lymph nodes: Calcified mediastinal lymph nodes without lymphadenopathy. Vasculature: Atherosclerotic calcification of aorta without aneurysm. Bones/joints: Unremarkable. No acute fracture. Soft tissues: Unremarkable. IMPRESSION: No acute findings.
[2024-09-30] MEDS: LIDOCAINE 5% TRANSDERMAL PATCH 1 EACH TP (19:19)
[2024-09-30] MEDS: ACETAMINOPHEN 500MG TAB 1000 MG PO (19:19)
[2024-09-30] MEDS: OXYCODONE 5MG IMMEDIATE RELEASE TABLET 5 MG PO (19:23)
== END 2024-09-30 22:02 | disposition home or self-care (01) ==
PROVIDERS: Emergency Provider Emergency Medicine; PCP Family Medicine
DX: S30.0XXA Contusion of lower back and pelvis, initial encounter (principal); M54.50 Low back pain, unspecified; R07.82 Intercostal pain; W01.198A Fall on same level from slipping, tripping and stumbling with subsequent striking against other object, initial encounter; Y93.89 Activity, other specified; Y92.9 Unspecified place or not applicable
CPT/HCPCS: 71250; 74150; 99284

== ENCOUNTER 2024-10-07 07:16 | Outpatient (CLI) | payer MEDICARE, OTHER, SELFPAY ==
[2024-10-07 07:48] LABS: Basophils % 0.8 % (0.1-2.0); Eosinophils # 0.1 K/mm3 (0.0-0.4); Eosinophils % 1.5 % (0.1-12.0); Hematocrit 40.3 % (37.0-47.0); Hemoglobin 13.1 g/dL (12.2-16.2); Lymphocytes # 1.8 K/mm3 (0.7-4.5); Lymphocytes % 34.4 % (10-50); Mean Corpuscular HGB Conc 32.5 g/dL (31.8-35.4); Mean Corpuscular Hemoglobin 30.6 pg (27.0-31.2); Mean Corpuscular Volume 94.2 fl (81-99); Mean Platelet Volume 9.5 fl (7.4-10.4); Monocytes # 0.5 K/mm3 (0.1-1.0); Monocytes % 8.6 % (1.7-9.3); Neutrophils # 2.9 K/mm3 (1.8-7.8); Neutrophils % 54.5 % (37.0-80.0); Platelet Count 316 K/mm3 (142-424); Red Blood Count 4.28 M/mm3 (4.20-5.40); Red Cell Distribution Width 13.2 % (11.5-17.5); White Blood Count 5.2 K/mm3 (4.8-10.8)
[2024-10-07 08:27] LABS: Alanine Aminotransferase 16 U/L (12-78); Albumin/Globulin Ratio 1.7 (1.1-1.8); Alkaline Phosphatase 92 U/L (38-126); Anion Gap 9.2 mEq/L (5-15); Aspartate Amino Transferase 24 U/L (14-36); Bilirubin,Total 0.5 mg/dl (0.2-1.3); Blood Urea Nitrogen 17 mg/dl (7-17); Calcium 9.3 mg/dl (8.4-10.2); Carbon Dioxide 27 mmol/L (22.0-30.0); Chloride 108 mmol/L (98-107); Chol/HDL Ratio 2.5 (1-3.5); Cholesterol 193 mg/dl (140-200); Estimated Glomerular Filt Rate 80 ml/min (>60); GFR (African American) 97 ML/MIN (>60); Globulin 2.4 g/dL (1.3-3.2); Glucose 88 mg/dl (74-100); HDL Cholesterol 76 mg/dl (40-60); Potassium 4.2 mmoL/L (3.5-5.1); Sodium 140 mmol/L (136-145); Total Protein,Serum 6.4 g/dl (6.3-8.2); Triglycerides 110 mg/dl (30-150); VLDL Cholesterol 22 mg/dL (0-40)
[2024-10-07 08:38] LABS: Direct LDL Cholesterol 74.45 mg/dL (100-129)
[2024-10-07 08:57] LABS: Thyroid Stimulating Hormone 4.23 uIU/mL (0.465-4.68)
== END 2024-10-07 23:59 | disposition home or self-care (01) ==
LOC: LAB 07:18
PROVIDERS: PCP Family Medicine; Visit Provider Family Medicine
DX: K21.9 Gastro-esophageal reflux disease without esophagitis (principal); I10 Essential (primary) hypertension; E03.9 Hypothyroidism, unspecified; E78.5 Hyperlipidemia, unspecified
CPT/HCPCS: 36415; 80053; 80061; 84443; 85025

== ENCOUNTER 2025-03-19 10:12 | Outpatient (CLI) | payer MEDICARE, OTHER, SELFPAY ==
[2025-03-19 16:57] LABS: Coronavirus 19, PCR Not Detected (NotDetected); Influenza A, PCR Not Detected (NotDetected); Influenza B, PCR Not Detected (NotDetected)
== END 2025-03-19 23:59 | disposition home or self-care (01) ==
LOC: LAB.DROPOF 03-20 14:46
PROVIDERS: PCP Nurse Practitioner Family; Visit Provider Nurse Practitioner Family
DX: J06.9 Acute upper respiratory infection, unspecified (principal); R53.83 Other fatigue
CPT/HCPCS: 87086; 87631

== ENCOUNTER 2025-03-21 10:38 | Outpatient (CLI) | payer MEDICARE, OTHER, SELFPAY ==
--- NOTE | 2025-03-21 10:41 | XR_ITS ---
FINAL REPORT CLINICAL HISTORY: Foot and ankle pain FINDINGS: LEFT FOOT Three views of the left foot demonstrate no acute fracture or dislocation. There are mild changes of osteoarthritis at the first MTP joint. There is a small plantar spur. The visualized joint spaces are normally aligned. Soft tissue edema is seen overlying the dorsum of the foot. IMPRESSION: No acute bony abnormality. Reviewed, Interpreted and Dictated by Geovani Hull MD Transcribed by Elsie Arevalo Authenticated and [facility]
--- NOTE | 2025-03-21 10:41 | XR_ITS ---
FINAL REPORT CLINICAL HISTORY: foot and ankle pain FINDINGS: LEFT ANKLE Three views demonstrate no acute fracture or dislocation. The visualized joint spaces are normally aligned. The soft tissues are unremarkable. IMPRESSION: No acute bony abnormality. Reviewed, Interpreted and Dictated by Geovani Hull MD Transcribed by Elsie Arevalo Authenticated and [facility]
== END 2025-03-21 23:59 | disposition home or self-care (01) ==
LOC: RAD 10:39
PROVIDERS: PCP Family Medicine; Visit Provider Nurse Practitioner Family
DX: M79.673 Pain in unspecified foot (principal); M25.579 Pain in unspecified ankle and joints of unspecified foot
CPT/HCPCS: 73610; 73630

== ENCOUNTER 2025-05-07 17:15 | Emergency (ER) | payer MEDICARE, OTHER, SELFPAY ==
[2025-05-07 17:24] VITALS: BP 161/71; PULSE 72; RESP 18; TEMP 36.8; O2SAT 99; BMI 29.0
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
--- NOTE | 2025-05-07 17:36 | ECG_ITS ---
APPROVED REPORT Exam: Resting ECG HR:72 bpm ECG Measurements Heart Rate 72 AXES NC 160 P 57 QRSd 81 QRS -15 QT 388 T 59 QTc 412 Conclusion SINUS RHYTHM POSSIBLE ANTERIOR MYOCARDIAL INFARCTION , OF INDETERMINATE AGE [30 ms Q WAVE IN V3/V4, OR R < 0.2 mV IN V4] ABNORMAL ECG UNCONFIRMED REPORT Electronically signed by : BELIA LEONE, 05/08/2025 00:33:59
[2025-05-07 17:49] LABS: Hematocrit 42.0 % (37.0-47.0); Hemoglobin 13.4 g/dL (12.2-16.2); Immature Granulocytes % 0.5 %; Mean Corpuscular HGB Conc 31.9 g/dL (31.8-35.4); Mean Corpuscular Hemoglobin 30.7 pg (27.0-31.2); Mean Corpuscular Volume 96.3 fl (81-99); Nucleated Red Blood Cells % 0 %; Platelet Count 307 K/mm3 (142-424); Red Blood Count 4.36 M/mm3 (4.20-5.40); Red Cell Distribution Width-SD 47.1 fL; White Blood Count 10.0 K/mm3 (4.8-10.8)
[2025-05-07 18:00] LABS: Alanine Aminotransferase 21 U/L (12-78); Albumin Level 4.3 g/dl (3.5-5.0); Albumin/Globulin Ratio 1.4 (1.1-1.8); Alkaline Phosphatase 100 U/L (38-126); Anion Gap 12.3 mEq/L (5-15); Aspartate Amino Transferase 33 U/L (14-36); Bilirubin,Total 0.6 mg/dl (0.2-1.3); Blood Urea Nitrogen 14 mg/dl (7-17); Calcium 9.0 mg/dl (8.4-10.2); Carbon Dioxide 29 mmol/L (22.0-30.0); Chloride 104 mmol/L (98-107); Creatinine Clearance Estimated 55 mL/min (50-200); Creatinine,Serum 0.80 mg/dl (0.52-1.04); Estimated Glomerular Filt Rate 69 ml/min (>60); GFR (African American) 83 ML/MIN (>60); Globulin 3.0 g/dL (1.3-3.2); Glucose 69 mg/dl (74-100); Potassium 4.3 mmoL/L (3.5-5.1); Sodium 141 mmol/L (136-145); Total Protein,Serum 7.3 g/dl (6.3-8.2)
[2025-05-07 18:13] LABS: Troponin I < 0.01 ng/ml (0.00-0.034)
[2025-05-07 18:45] LABS: POC Glucose,Bedside 86 gm/dL (70-110)
[2025-05-07 20:01] VITALS: BP 191/94; PULSE 74; O2SAT 98
[2025-05-07 20:30] VITALS: BP 153/91; PULSE 82; O2SAT 97
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
[2025-05-07 20:52] VITALS: BP 118/89; PULSE 87; RESP 18; TEMP 36.7; O2SAT 98
[2025-05-07] MEDS: METHOCARBAMOL 500MG TABLET 500 MG PO (20:52)
== END 2025-05-07 20:58 | disposition home or self-care (01) ==
PROVIDERS: Emergency Provider Student in an Organized Health Care Education/Training Program; PCP Family Medicine
DX: R07.89 Other chest pain (principal); V49.40XA Driver injured in collision with unspecified motor vehicles in traffic accident, initial encounter
CPT/HCPCS: 71046; 80053; 82962; 84484; 85025; 93005; 99285

== ENCOUNTER 2025-05-20 07:46 | Outpatient (CLI) | payer MEDICARE, OTHER, SELFPAY ==
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
== END 2025-05-20 23:59 | disposition home or self-care (01) ==
LOC: RAD 07:49
PROVIDERS: PCP Family Medicine; Visit Provider Family Medicine
DX: T14.8XXA Other injury of unspecified body region, initial encounter (principal); R07.89 Other chest pain; V89.2XXA Person injured in unspecified motor-vehicle accident, traffic, initial encounter
CPT/HCPCS: 71046